=== PATIENT | female | born 1995 | race Native Hawaiian/Other Pacific Islander ===

== ENCOUNTER 2021-12-25 00:18 | Emergency (ER) | payer OTHER, SELFPAY ==
[2021-12-25 01:18] VITALS: BP 143/96; PULSE 94; RESP 20; TEMP 36.9; O2SAT 95; BMI 43.4
[2021-12-25 02:00] LABS: Influenza A PCR NEGATIVE (Negative); Influenza B PCR NEGATIVE (Negative); Resp Syncy Virus RNA Qual PCR NEGATIVE (Negative); SARS COV2 PCR INHOUSE NEGATIVE (Negative)
--- NOTE | 2021-12-25 04:46 | ED.URI ---
HPI - URI/Sore Throat General Chief Complaint: Upper Respiratory Symptoms Stated Complaint: Congested/Cough/Vomiting Time Seen by Provider: 12/25/21 04:46 Source: patient Mode of arrival: ambulatory Limitations: no limitations History of Present Illness HPI Narrative: Patient with no known lung condition been coughing for last 3 weeks her son was also sick with same low-grade fever clear rhinorrhea wheezing and cough COVID RSV and flu done in the triage was negative Related Data Previous Rx's Medication Instructions Recorded albuterol sulfate 90 mcg/actuation 2 puff inhalation Q4-6H PRN 12/25/21 aerosol inhaler (ProAir HFA) shortness of breath or wheezing #8.5 grams amoxicillin 875 mg-potassium 1 tab PO BID #20 tabs 12/25/21 clavulanate 125 mg tablet benzonatate 200 mg capsule 200 mg PO TID PRN cough #30 caps 12/25/21 prednisone 20 mg tablet 40 mg PO DAILY #10 tabs 12/25/21 Allergies Allergy/AdvReac Type Severity Reaction Status Date / Time No Known Allergies Allergy Unverified 11/01/19 19:29 [No Known Allergies*] Review of Systems Review of Systems: Yes all other systems are reviewed and are negative PMFSH Social History Social History Advance Directives: No Advance Directives Information Provided: Yes Physical Exam Vital Signs: Vital Signs: Last Vital Signs Temp 98.5 F 12/25/21 01:18 Pulse 94 12/25/21 01:18 Resp 20 12/25/21 01:18 BP 143/96 H 12/25/21 01:18 Pulse Ox 95 12/25/21 01:18 O2 Del Method 12/25/21 01:18 BMI result Body Mass Index 43.4 Appearance: Alert. Oriented X3. No acute distress. ENT: Pharynx normal. Oral Mucosa moist Neck: Normal inspection. Neck supple. CVS: Normal heart rate and rhythm. Pulses normal. Respiratory: No respiratory distress. Equal air entry bilateral, no wheezing/rales/rhonchi prolonged expiration with frequent cough Abdomen: Soft and nontender. Bowel sounds are present, no mass palpable, no CVA tenderness Skin: Skin warm and dry. Normal skin color. Normal skin turgor. Extremities: No lower extremity edema. No calf tenderness Neuro: Oriented X 3. Medications Administered Discontinued Medications Generic Name Dose Route Start Last Admin Trade Name Freq PRN Reason Stop Dose Admin Albuterol Sulfate 4 puff 12/25/21 05:00 12/25/21 05:11 Albuterol Sulfate 90 Mcg 8 Gm Inhaler INHALE 12/25/21 05:01 4 puff ONCE ONE Administration Amoxicillin/Clavulanate Potassium 875 mg 12/25/21 05:00 12/25/21 05:12 Amoxicillin/Potassium Clav 875 Mg Tablet PO 12/25/21 05:01 875 mg ONCE ONE Administration Benzonatate 200 mg 12/25/21 05:00 12/25/21 05:12 Benzonatate 100 Mg Capsule PO 12/25/21 05:01 200 mg ONCE ONE Administration Dexamethasone 10 mg 12/25/21 05:00 12/25/21 05:12 Dexamethasone 2 Mg Tablet PO 12/25/21 05:01 10 mg ONCE ONE Administration MDM - URI/Sore Throat MDM Narrative Medical decision making narrative: Patient feeling much better after albuterol inhaler and start home on prednisone inhaler antibiotics Lab Data Labs: Lab Results 12/25/21 Range/Units 01:17 Influenza Type A (PCR) NEGATIVE (Negative) Influenza Type B (PCR) NEGATIVE (Negative) RSV RNA Qual (PCR) NEGATIVE (Negative) SARS-CoV-2 RNA (RT-PCR) NEGATIVE (Negative) Discharge Plan Discharge Clinical Impression: Bronchitis Patient Disposition: Home, Self-Care Instructions: Acute Bronchitis (ED) Additional Instructions: Take medication as prescribed Follow with PCP if not better Prescriptions: New benzonatate 200 mg capsule 200 mg PO TID PRN (Reason: cough) Qty: 30 0RF prednisone 20 mg tablet 40 mg PO DAILY Qty: 10 0RF albuterol sulfate [ProAir HFA] 90 mcg/actuation HFA aerosol inhaler 2 puff inhalation Q4-6H PRN (Reason: shortness of breath or wheezing) Qty: 8.5 0RF amoxicillin-pot clavulanate 875-125 mg tablet 1 tab PO BID Qty: 20 0RF
[2021-12-25] MEDS: Albuterol Sulfate 90 MCG 8 GM INHALER 4 PUFF INHALE (05:11)
[2021-12-25] MEDS: Amoxicillin/Potassium Clav 875 MG TABLET PO (05:12)
[2021-12-25] MEDS: Benzonatate 100 MG CAPSULE 200 MG PO (05:12)
[2021-12-25] MEDS: dexAMETHasone 2 MG TABLET 10 MG PO (05:12)
--- OUTSIDE RECORDS SUMMARY | 2021-12-25 05:30 | XMS_ITS | Continuity of Care Document ---
:1995 Author Organization [facility] Address [address] [place] [address]- Care Team Providers Name Role Phone Malorie Voss MD Primary Care Physician [facility]counter [facility] Date(s): 01/07/20 - 02/06/[address] [address] Allergies, Adverse Reactions, Alerts Substance Reaction Severity Status NKA Active Immunizations Given and Recorded Vaccine Date Status Refusal Reason Human Papillomavirus Vaccine 02/02/11 Given Human Papillomavirus Vaccine 09/17/09 Given Human Papillomavirus Vaccine 09/02/08 Given influenza virus vaccine, inactivated 10/21/10 Given Tet/Diphth/Acel, Pertussis (oldterm) 09/02/08 Given Meningococcal Polysaccharide Vaccine 09/02/08 Given Varicella Virus Vaccine 09/02/08 Given Varicella Virus Vaccine 08/11/99 Given Measles/Mumps/Rubella Virus Vaccine 11/03/01 Given Measles/Mumps/Rubella Virus Vaccine 05/02/98 Given Poliovirus Vaccine, Inactivated 11/03/01 Given Poliovirus Vaccine, Inactivated 01/29/99 Given Poliovirus Vaccine, Inactivated 97 Given Poliovirus Vaccine, Inactivated 97 Given Diphth/Pertussis,Acel/Tetanus (oldterm) 11/03/01 Given Diphth/Pertussis,Acel/Tetanus (oldterm) 01/29/99 Given Diphth/Pertussis,Acel/Tetanus (oldterm) 97 Given Diphth/Pertussis,Acel/Tetanus (oldterm) 97 Given Diphth/Pertussis,Acel/Tetanus (oldterm) 97 Given Haemophilus B Conj Vaccine (oldterm) 05/02/98 Given Haemophilus B Conj Vaccine (oldterm) 97 Given Haemophilus B Conj Vaccine (oldterm) 97 Given Haemophilus B Conj Vaccine (oldterm) 97 Given Hepatitis B Vaccine (old term) 97 Given Hepatitis B Vaccine (old term) 97 Given Hepatitis B Vaccine (old term) 97 Given Medications MetroGel-Vaginal 0.75% vaginal gel with applicator 1 application, Vaginally, Daily at bedtime, # 70 Gm, 0 Refills, Soft Stop, 11/29/14 10:32:21, Gel, 1application Vaginally Daily at bedtime,x5 days Start Date: 11/29/14 Stop Date: 12/04/14 Status: OrderedNuvaRing 0.015 mg-0.120 mg vaginal ring See Instructions, 1 each Vaginally, # 3 each, 4 Refills, Maintenance, 07/02/16 15:00:39, 1 each Vaginally Start Date: 07/02/16 Status: Ordered Problem List Condition Effective Dates Status Health Status Informant Chlamydia infection(Confirmed) Active Postoperative wound Active breakdown(Confirmed) Social History Social History Type Response Smoking Status Never smoker entered on: 11/29/14 Sex
--- OUTSIDE RECORDS SUMMARY | 2021-12-25 05:30 | XMS_ITS | Continuity of Care Document ---
:1995 Author Organization [facility] ic Address [address] [place] [id number]- Care Team Providers Name Role Phone Malorie Voss MD Primary Care Physician [facility]counter [facility] Date(s): 09/19/20 - 10/24/[address] [id number] Attending Physician: Not on Staff, Attending MD Allergies, Adverse Reactions, Alerts Substance Reaction Severity [...] Condition Effective Dates Status Health Status Informant Postoperative wound Active breakdown(Confirmed) Social History Social History Type Response Smoking Status Never smoker entered on: 11/29/14 Sex
--- OUTSIDE RECORDS SUMMARY | 2021-12-25 05:30 | XMS_ITS | Continuity of Care Document ---
:1995 Author Organization [facility] ic Address [address] [place] [address]- Care Team Providers Name Role Phone Malorie Voss MD Primary Care Physician Encounter [facility] Date(s): 01/25/20 - 02/24/[address] [address] Attending Physician: Milana Posey Admitting Physician: Milana Posey Referring Physician: Milana Posey Allergies, Adverse Reactions, Alerts Substance Reaction Severity [...]
--- OUTSIDE RECORDS SUMMARY | 2021-12-25 05:30 | XMS_ITS | Continuity of Care Document ---
:1995 Author Organization [facility] [employer] [facility] p Address [address] [place] [address], [address] [place] [address]- Care Team Providers Name Role Phone Malorie Voss MD Primary Care Physician [facility]counter [facility] Date(s): 09/23/20 - 10/23/20 [facility] [employer] [address], [address] [place] [address] Allergies, Adverse Reactions, Alerts Substance Reaction Severity [...]
--- OUTSIDE RECORDS SUMMARY | 2021-12-25 05:30 | XMS_ITS | Continuity of Care Document ---
:1995 Author Organization [facility] ic Address [address] [place] [id number]- Care Team Providers Name Role Phone Malorie Voss MD Primary Care Physician [place] [facility] Date(s): 09/24/20 - 10/24/[address] [address] Attending Physician: Milana Posey Admitting Physician: Milana Posey Referring Physician: AdmtrMilana Allergies, Adverse Reactions, Alerts Substance Reaction Severity [...]
--- OUTSIDE RECORDS SUMMARY | 2021-12-25 05:30 | XMS_ITS | Continuity of Care Document ---
:1995 Author Organization [facility] [employer] [facility] p Address [address] [place] [address], [address] [place] [address]- Care Team Providers Name Role Phone Malorie Voss MD Primary Care Physician Encounter [facility] Date(s): 10/05/21 - 11/04/21 [facility] [employer] [address], [address] [place] [address] Allergies, Adverse Reactions, Alerts No Known Allergies Immunizations Given and Recorded Vaccine Date Status [...] Status Never smoker entered on: 11/29/14 Sex Care Team PersonnelName: Malorie Voss MD Address: [address] [place] [address] General Pediatrics [address]
--- OUTSIDE RECORDS SUMMARY | 2021-12-25 05:30 | XMS_ITS | Continuity of Care Document ---
:1995 Author Organization [facility] ic Address [address] [place] [address]- Care Team Providers Name Role Phone Malorie Voss MD Primary Care Physician [facility] Date(s): 09/05/20 - 10/05/[address] [address] Allergies, Adverse Reactions, Alerts Substance Reaction [...] 97 Given Haemophilus B Conj Vaccine (oldterm) 3/19/99 Given Haemophilus B Conj Vaccine (oldterm) 97 [...]
--- OUTSIDE RECORDS SUMMARY | 2021-12-25 05:30 | XMS_ITS | Continuity of Care Document ---
:1995 Author Organization [facility] ic Address [address] [place] [id number]- Care Team Providers Name Role Phone Malorie Voss MD Primary Care Physician Encounter [facility] Date(s): 11/28/19 - 02/24/[address] [address] Attending Physician: Sana Sheets CNM Admitting Physician: Sana Sheets CNM Allergies, Adverse Reactions, Alerts Substance Reaction Severity [...]
== END 2021-12-25 05:35 | disposition home or self-care (01) ==
PROVIDERS: Emergency Provider Internal Medicine
DX: J40 Bronchitis, not specified as acute or chronic (principal); R05.9 Cough, unspecified; Z20.822 Contact with and (suspected) exposure to COVID-19; Z79.899 Other long term (current) drug therapy
CPT/HCPCS: 0241U; 99282; 99284; J8540

== ENCOUNTER 2022-02-05 02:43 | Emergency (ER) | payer OTHER, SELFPAY ==
[2022-02-05 03:21] VITALS: BP 107/66; PULSE 99; RESP 16; TEMP 36.9; O2SAT 98; BMI 43.0
[2022-02-05 03:58] VITALS: BP 126/70; PULSE 97; RESP 20; TEMP 37; O2SAT 98
[2022-02-05 04:01] VITALS: BP 126/70; PULSE 97; RESP 20; TEMP 37; O2SAT 98
--- NOTE | 2022-02-05 04:02 | PC.NURSE ---
Pt's V/S are stable, pt is /o x5, pt came presenting abd pain. Pt refused to sit on the stretcher and for the nurse to assess her abd. Provider has been notified.
--- NOTE | 2022-02-05 04:13 | PC.NURSE ---
Pt is combative and swearing to the provider and the nurse. charge nurse Bandar made aware and currently w/ pt. Pt refused to be assess by the provider. Security has been called.
--- NOTE | 2022-02-05 04:15 | ED.ABDPAIN ---
HPI - Abdominal Pain General Chief Complaint: Abdominal Pain Stated Complaint: abd pain Time Seen by Provider: 02/05/22 04:09 Source: patient Mode of arrival: ambulatory Limitations: no limitations History of Present Illness HPI narrative: Patient came diffuse abdominal pain for last few months after nexplanon was changed in November having irregular menstrual periods complaining of dysuria and discomfort in lower abdomen for last 3 days radiating the right side and right flank patient does complain of frequency and dysuria no hematuria no history of kidney stone nauseated vomited 2-3 times in last 24 hours also having chills no fever no significant vaginal discharge Related Data Previous Rx's Medication Instructions Recorded albuterol sulfate 90 mcg/actuation 2 puff inhalation Q4-6H PRN 12/25/21 aerosol inhaler (ProAir HFA) shortness of breath or wheezing #8.5 grams amoxicillin 875 mg-potassium 1 tab PO BID #20 tabs 12/25/21 clavulanate 125 mg tablet benzonatate 200 mg capsule 200 mg PO TID PRN cough #30 caps 12/25/21 prednisone 20 mg tablet 40 mg PO DAILY #10 tabs 12/25/21 ciprofloxacin HCl 500 mg tablet 500 mg PO BID #20 tabs 02/05/22 (Cipro) ibuprofen 600 mg tablet 600 mg PO Q6H PRN fever or pain 02/05/22 #30 tabs phenazopyridine 200 mg tablet 200 mg PO TID 2 days #6 tabs 02/05/22 (Pyridium) Allergies Allergy/AdvReac Type Severity Reaction Status Date / Time No Known Allergies Allergy Unverified 11/01/19 19:29 [No Known Allergies*] Review of Systems Review of Systems Yes all other systems are reviewed and are negative PMFSH Social History Social History Smoked in Last 30 Days: No Use of substances other than those prescribed or required for medical reasons: No Advance Directives: No Advance Directives Information Provided: Yes Patient : No Physical Exam ED Vital Signs: Vital Signs - 24 hr 02/05/22 03:21 02/05/22 03:58 02/05/22 04:01 Temperature 98.4 F 98.6 F 98.6 F Pulse Rate 99 97 97 Respiratory Rate 16 20 20 Blood Pressure 107/66 126/70 126/70 Pulse Oximetry 98 98 98 Oxygen Delivery Method Room Air Room Air Room Air 02/05/22 06:40 Temperature Pulse Rate Respiratory Rate 16 Blood Pressure Pulse Oximetry Oxygen Delivery Method BMI result Body Mass Index 43.0 Appearance: Alert. Oriented X3. No acute distress. Anxious Eyes: PERRLA, No Nystagmus ENT: Pharynx normal. Oral Mucosa moist Neck: Normal inspection. Neck supple. CVS: Normal heart rate and rhythm. Pulses normal. Respiratory: No respiratory distress. Equal air entry bilateral, no wheezing/rales/rhonchi Abdomen: Soft and nontender. Bowel sounds are present, no mass palpable, mild right CVA tenderness Skin: Skin warm and dry. Normal skin color. Normal skin turgor. Extremities: No lower extremity edema. No calf tenderness Neuro: Oriented X 3. No motor deficit. Medical Decision Making Medical Decision Making [facility] Narrative: 4;10 am Patient very rude after arrival in the ER sitting on the chair refused to lay on the bed refused to be examined refused to give the urine sample will wait for the urine sample check for and further evaluation 6 am patient very rude still difficult to make her understand course of UTI and lactic acid of 1.6 patient received IV fluids and Rocephin will discharge patient home on Cipro for uncomplicated pyelonephritis Lab Data [facility] Lab Attestation statement: I reviewed the patient's lab results. Result Diagrams: 02/05/22 04:50 02/05/22 04:50 Labs: Lab Results 02/05/22 02/05/22 02/05/22 Range/Units 04:50 04:50 04:53 WBC 22.3 H (4.8-10.8) X10*3/uL RBC 4.81 (4.20-5.50) X10*6/uL Hgb 13.2 (12.0-16.0) g/dl Hct 39.8 (37.0-47.0) % MCV 82.7 (80.0-98.0) fL MCH 27.4 (27.0-33.0) pg MCHC 33.2 (31.0-35.0) g/dl RDW 12.6 (11.0-16.0) % Plt Count 238 (160-400) X10*3/uL MPV 10.2 (9.4-12.3) fL Immature Gran % (Auto) 0.7 H (0.0-0.4) % Neut % (Auto) 86.3 H (45-73) % Lymph % (Auto) 10.3 L (20-40) % Maverick % (Auto) 2.2 (2-11) % Eos % (Auto) 0.2 (0-4) % Baso % (Auto) 0.3 (0-2) % Lymph # (Auto) 2.3 (1.2-4.9) X10*3/uL Maverick # (Auto) 0.5 (0.1-1.2) X10*3/uL Eos # (Auto) 0.0 (0.0-0.4) X10*3/uL Baso # (Auto) 0.1 (0.0-0.2) X10*3/uL Abs Immat Gran (auto) 0.15 H (0.00-0.03) X10*3/uL Absolute Neuts (auto) 19.2 H (2.0-8.3) x10*3/uL Absolute Nucleated RBC 0.000 (0.0-0.012) X10*3/uL Nucleated RBC % (auto) 0.0 (0.0-0.2) /100WBC Sodium 139 (135-145) mmol/L Potassium 3.7 (3.3-5.1) mmol/L Chloride 105 (96-108) mmol/L Carbon Dioxide 21 L (22-29) mmol/L Anion Gap 17 (12-20) BUN 8 L (9-16) mg/dL Creatinine 0.77 (0.5-1.4) mg/dL Estim Creat Clear Calc 154.4 Estimated GFR > 60 Random Glucose 137 H (60-115) mg/dL Lactic Acid (0.5-2.0) mmol/L Calcium 9.5 (8.4-10.2) mg/dL Total Bilirubin 0.7 (0.0-1.0) mg/dL AST 13 (5-31) U/L ALT 14 (0-31) U/L Alkaline Phosphatase 82 (39-117) U/L Total Protein 7.1 (6.5-8.0) g/dL Albumin 4.3 (3.5-5.0) g/dL Urine Color Yellow Urine Appearance Cloudy Urine pH 6.5 (5.0-9.0) Ur Specific Fountain 1.020 (1.005-1.025) Urine Protein 300 (3+) H (Neg-Trace) mg/dL Urine Glucose (UA) Negative (Negative) mg/dL Urine Ketones Negative (Negative) mg/dL Urine Blood Moderate (2+) H (Negative) Urine Nitrite Negative (Negative) Ur Leukocyte Esterase Large (3+) H (Negative) Urine RBC >20 H (0-2) /HPF Urine WBC >50 H (0-5) /HPF Ur Squamous Epith Cells 3-5 (0-2) /HPF Urine Bacteria 1+ (None Seen) Hyaline Casts 0-2 (0-2) /LPF Urine Test (NEGATIVE) 02/05/22 02/05/22 Range/Units 04:53 05:38 WBC (4.8-10.8) X10*3/uL RBC (4.20-5.50) X10*6/uL Hgb (12.0-16.0) g/dl Hct (37.0-47.0) % MCV (80.0-98.0) fL MCH (27.0-33.0) pg MCHC (31.0-35.0) g/dl RDW (11.0-16.0) % Plt Count (160-400) X10*3/uL MPV (9.4-12.3) fL Immature Gran % (Auto) (0.0-0.4) % Neut % (Auto) (45-73) % Lymph % (Auto) (20-40) % Maverick % (Auto) (2-11) % Eos % (Auto) (0-4) % Baso % (Auto) (0-2) % Lymph # (Auto) (1.2-4.9) X10*3/uL Maverick # (Auto) (0.1-1.2) X10*3/uL Eos # (Auto) (0.0-0.4) X10*3/uL Baso # (Auto) (0.0-0.2) X10*3/uL Abs Immat Gran (auto) (0.00-0.03) X10*3/uL Absolute Neuts (auto) (2.0-8.3) x10*3/uL Absolute Nucleated RBC (0.0-0.012) X10*3/uL Nucleated RBC % (auto) (0.0-0.2) /100WBC Sodium (135-145) mmol/L Potassium (3.3-5.1) mmol/L Chloride (96-108) mmol/L Carbon Dioxide (22-29) mmol/L Anion Gap (12-20) BUN (9-16) mg/dL Creatinine (0.5-1.4) mg/dL Estim Creat Clear Calc Estimated GFR Random Glucose (60-115) mg/dL Lactic Acid 1.6 (0.5-2.0) mmol/L Calcium (8.4-10.2) mg/dL Total Bilirubin (0.0-1.0) mg/dL AST (5-31) U/L ALT (0-31) U/L Alkaline Phosphatase (39-117) U/L Total Protein (6.5-8.0) g/dL Albumin (3.5-5.0) g/dL Urine Color Urine Appearance Urine pH (5.0-9.0) Ur Specific Fountain (1.005-1.025) Urine Protein (Neg-Trace) mg/dL Urine Glucose (UA) (Negative) mg/dL Urine Ketones (Negative) mg/dL Urine Blood (Negative) Urine Nitrite (Negative) Ur Leukocyte Esterase (Negative) Urine RBC (0-2) /HPF Urine WBC (0-5) /HPF Ur Squamous Epith Cells (0-2) /HPF Urine Bacteria (None Seen) Hyaline Casts (0-2) /LPF Urine Test NEGATIVE (NEGATIVE) Medications Administered Discontinued Medications Generic Name Dose Route Start Last Admin Trade Name Freq PRN Reason Stop Dose Admin Ceftriaxone Sodium 1 gm/ 50 mls @ 100 mls/hr 02/05/22 05:09 02/05/22 05:40 Sodium Chloride IV 02/05/22 05:38 100 mls/hr ONCE ONE Administration Sodium Chloride 1,000 mls @ 999 mls/hr 02/05/22 05:10 02/05/22 05:40 Ns IV 02/05/22 06:10 999 mls/hr .Q1H1M ONE Administration Ketorolac Tromethamine 30 mg 02/05/22 05:10 02/05/22 05:40 Ketorolac Tromethamine 30 Mg/Ml Vial IVPUSH 02/05/22 05:11 30 mg ONCE ONE Administration Discharge Plan Discharge Clinical Impression: Acute pyelonephritis Patient Disposition: Home, Self-Care Instructions: Kidney Infection (ED) Additional Instructions: Drink plenty of fluids Take antibiotic as prescribed Follow-up with your PCP if not better Prescriptions: New ciprofloxacin HCl [Cipro] 500 mg tablet 500 mg PO BID Qty: 20 0RF phenazopyridine [Pyridium] 200 mg tablet 200 mg PO TID 2 Days Qty: 6 0RF ibuprofen 600 mg tablet 600 mg PO Q6H PRN (Reason: fever or pain) Qty: 30 0RF No Action benzonatate 200 mg capsule 200 mg PO TID PRN (Reason: cough) Qty: 30 0RF prednisone 20 mg tablet 40 mg PO DAILY Qty: 10 0RF albuterol sulfate [ProAir HFA] 90 mcg/actuation HFA aerosol inhaler 2 puff inhalation Q4-6H PRN (Reason: shortness of breath or wheezing) Qty: 8.5 0RF amoxicillin-pot clavulanate 875-125 mg tablet 1 tab PO BID Qty: 20 0RF
[2022-02-05 04:53] LABS: MANUAL DIFF FLAG NO
[2022-02-05 04:54] LABS: Basophils Absolute Auto 0.1 X10*3/uL (0.0-0.2); Basophils Percent Auto 0.3 % (0-2); Eosinophils Percent Auto 0.2 % (0-4); Hematocrit 39.8 % (37.0-47.0); Hemoglobin 13.2 g/dl (12.0-16.0); Imm Gran Abs Auto 0.15 X10*3/uL (0.00-0.03); Imm Gran Pct Auto 0.7 % (0.0-0.4); Lymphocytes Absolute Auto 2.3 X10*3/uL (1.2-4.9); Lymphocytes Percent Auto 10.3 % (20-40); Mean Corpuscular HGB Conc 33.2 g/dl (31.0-35.0); Mean Corpuscular Hemoglobin 27.4 pg (27.0-33.0); Mean Corpuscular Volume 82.7 fL (80.0-98.0); Mean Platelet Volume 10.2 fL (9.4-12.3); Monocytes Absolute Auto 0.5 X10*3/uL (0.1-1.2); Monocytes Percent Auto 2.2 % (2-11); Neutrophils Absolute Auto 19.2 x10*3/uL (2.0-8.3); Neutrophils Percent Auto 86.3 % (45-73); Platelet Count 238 X10*3/uL (160-400); Red Blood Count 4.81 X10*6/uL (4.20-5.50); Red Cell Distribution Width 12.6 % (11.0-16.0); White Blood Count 22.3 X10*3/uL (4.8-10.8)
[2022-02-05 05:00] LABS: Appearance Urine Cloudy; Color Urine Yellow; Glucose Urine UA Negative (Negative); Leukocyte Esterase Urine Large (3+) (Negative); Nitrite Urine Negative (Negative); PH 6.5 (5.0-9.0); UMIC TRIGGER UACC YES; Urine Blood Moderate (2+) (Negative); Urine Ketones Negative (Negative); Urine Protein 300 (3+) mg/dL (Neg-Trace)
[2022-02-05 05:03] LABS: UPreg QC Valid YES; Urine Pregnancy NEGATIVE (NEGATIVE)
[2022-02-05 05:06] LABS: Bacteria Urine 1+ (None Seen); Hyaline Casts Urine 0-2 /LPF (0-2); RBC Urine >20 /HPF (0-2); UACC Culture Trigger YES; WBC Urine >50 /HPF (0-5)
[2022-02-05 05:14] LABS: Alanine Aminotransferase 14 U/L (0-31); Albumin Level 4.3 g/dL (3.5-5.0); Alkaline Phosphatase 82 U/L (39-117); Anion Gap 17 (12-20); Aspartate Amino Transferase 13 U/L (5-31); Bilirubin Total 0.7 mg/dL (0.0-1.0); Blood Urea Nitrogen 8 mg/dL (9-16); Calcium 9.5 mg/dL (8.4-10.2); Carbon Dioxide 21 mmol/L (22-29); Chloride 105 mmol/L (96-108); Creatinine Clr Calc Pharmacy 154.4; Estimated Glomerular Filt Rate > 60; Glucose Random 137 mg/dL (60-115); Potassium 3.7 mmol/L (3.3-5.1); Sodium 139 mmol/L (135-145); Total Protein 7.1 g/dL (6.5-8.0)
[2022-02-05] MEDS: Ketorolac Tromethamine 30 MG/ML VIAL IVPUSH (05:40)
[2022-02-05] MEDS: cefTRIAXone sodium 1 GM in 0.9 % Sodium Chloride 50 ML IV (05:40)
[2022-02-05] MEDS: 0.9 % Sodium Chloride 1,000 ML 999 ML IV (05:40)
[2022-02-05 05:52] LABS: Lactic Acid 1.6 mmol/L (0.5-2.0)
[2022-02-05 06:40] VITALS: RESP 16
== END 2022-02-05 07:26 | disposition home or self-care (01) ==
PROVIDERS: Emergency Provider Internal Medicine
DX: N10 Acute pyelonephritis (principal); R30.0 Dysuria; Z79.899 Other long term (current) drug therapy
CPT/HCPCS: 36415; 74176; 80053; 81001; 81003; 81025; 83605; 85025; 87040; 87077; 87086; 87205; 96374; 96375; 99284; 99285; J0696; J1885

== ENCOUNTER 2022-02-06 13:55 | Inpatient (IN) | payer OTHER, SELFPAY ==
[2022-02-06 13:59] VITALS: BP 116/67; PULSE 126; RESP 18; TEMP 37.4; O2SAT 95; BMI 42.3
[2022-02-06 14:00] VITALS: BP 126/81; PULSE 113; RESP 15; TEMP 37.1; O2SAT 100
--- NOTE | 2022-02-06 14:05 | ED.GENADULT ---
HPI - General Adult General Chief complaint: Recheck/Abnormal Lab/Rx Stated complaint: abnormal labs Time Seen by Provider: 02/06/22 14:04 Source: patient Mode of arrival: ambulatory Limitations: no limitations History of Present Illness HPI narrative: Patient is a 26 year old assigned female at with a history of sepsis presenting to the emergency department today with flank pain. Patient states that she was seen yesterday and diagnosed with a kidney infection. Patient states that she was called today and told that her blood cultures came back positive and she should return to the emergency department. Patient states she is still having flank pain. Patient denies any dizziness, lightheadedness, abdominal pain, nausea, vomiting, fever, chills, blurry vision, double vision, loss of vision, chest pain, difficulty breathing, shortness of breath, back pain, night sweats, pain with urination, increased urinary frequency, increased urinary urgency, blood in her urine or stool, syncope or a near syncopal episode, recent trauma or falls, bowel incontinence, bladder incontinence, bowel retention, bladder retention, or any other complaints at this time. Onset (ago): day(s) Severity: moderate Severity scale (1-10): 4 Relieving factors: none Exacerbating factors: none Associated symptoms: denies other symptoms Treatments prior to arrival: none Related Data Home Medications Medication Instructions Recorded Confirmed acetaminophen 325 mg tablet 650 mg PO QID PRN Pain 02/06/22 02/06/22 Previous Rx's Medication Instructions Recorded albuterol sulfate 90 mcg/actuation 2 puff inhalation Q4-6H PRN 12/25/21 aerosol inhaler (ProAir HFA) shortness of breath or wheezing #8.5 grams ciprofloxacin HCl 500 mg tablet 500 mg PO BID #20 tabs 02/05/22 (Cipro) phenazopyridine 200 mg tablet 200 mg PO TID 2 days #6 tabs 02/05/22 (Pyridium) Allergies Allergy/AdvReac Type Severity Reaction Status Date / Time No Known Allergies Allergy Unverified 11/01/19 19:29 [No Known Allergies*] Review of Systems Constitutional: Constitutional: Reports no additional constitutional complaints, Denies chills, Denies fever(s) and Denies night sweats Eyes: Eyes: Reports no additional eye complaints, Denies blurry vision, Denies change in vision, Denies diplopia, Denies eye discharge, Denies loss of vision and Denies eye pain ENT: Denies dizziness Cardiovascular: Cardiovascular: Reports no additional cardiovascular complaints, Denies chest pain, Denies lightheadedness, Denies Loss of Consciousness and Denies dyspnea Respiratory: Respiratory: Reports no additional respiratory complaints and Denies dyspnea Gastrointestinal: Gastrointestinal: Reports no additional gastrointestinal complaints, Denies abdominal pain, Denies melena, Denies hematochezia, Denies change in bowel habits and Denies change in stool character Genitourinary: Genitourinary: Denies hematuria, Denies urinary frequency, Denies dysuria, Reports flank pain, Denies urinary incontinence, Denies urinary hesitancy and Denies urinary urgency Musculoskeletal: Musculoskeletal: Reports no additional musculoskeletal complaints, Denies numbness and Denies tingling Neurologic: Denies dizziness, Denies loss of vision, Denies numbness and Denies tingling Psychiatric: Psychiatric: Reports no additional psychiatric complaints Endocrine: Endocrine: Reports no additional endocrine complaints Hematologic/Lymphatic: Hematologic/Lymphatic: Reports no additional hematologic/lymphatic complaints Allergic/Immunologic: Allergic/Immunologic: Reports no additional allergic/immunologic complaints PMFSH Past Medical History Attestation statement: The following information was validated with the patient. Source: old records reviewed and nursing notes reviewed Medical History No pertinent past medical history Family History Family History Mother Diabetes Hypertension Maternal Grandfather Diabetes Hypertension Maternal Grandmother Diabetes Hypertension Colon cancer Social History Social History Alcohol intake: current Alcohol intake frequency: holidays/special occasions only Patient Tobacco Use Status: Never used Tobacco Use of substances other than those prescribed or required for medical reasons: Yes Substance Use Type: Marijuana Advance Directives: No Advance Directives Information Provided: Yes Physical Exam ED Vital Signs: Vital Signs - 24 hr 02/06/22 13:59 02/06/22 14:00 Temperature 99.3 F 98.8 F Pulse Rate 126 H 113 H Respiratory Rate 18 15 Blood Pressure 116/67 126/81 Pulse Oximetry 95 100 Oxygen Delivery Method Room Air Room Air BMI result Body Mass Index 42.3 Const General: cooperative, no acute distress, alert and awake Nutritional Appearance: well nourished Orientation/consciousness: patient oriented x3 Limitations: no limitations HENMT Head: Yes normal to inspection and Yes atraumatic Ears: hearing grossly normal bilaterally and external ears normal General nose exam: Normal external nose present, no nasal discharge noted and no epistaxis Face and sinus: Yes normal facial exam, No abrasion and No laceration Mouth: Normal oral and palatal mucosa present, no drooling and no muffled voice Eyes General: appearance normal, both eyes and all related structures Periorbital: periorbital findings normal Eyelids: Yes eyelids normal Conjunctivae: conjunctivae normal Pupils: Equal, round and reactive pupils present EOM: EOMs intact bilaterally Neck Neck: Yes normal visual inspection, Yes full ROM and Yes no lymphadenopathy Chest Chest palpation & inspection: normal inspection of the chest Resp Effort & Inspection: normal respiratory effort and able to speak in complete sentences Auscultation: clear to auscultation bilaterally Cardio Rate: regular rate Rhythm: regular rhythm GI Inspection: Yes normal to inspection Palpation (GI): Soft to palpation, not firm, nontender, no guarding and not rigid Neuro General: patient oriented x3 and moves all extremities Cranial nerves: Yes Equal, round and reactive pupils present Cognition (Neuro): normal cognition Motor exam (neuro): 5/5 motor strength present throughout Sensory Exam: Normal double simultaneous stimulation for sensation Coordination: [id number] test normal Extrem General: Yes normal to inspection, Yes full ROM and Yes capillary refill normal Psych Appearance: grossly normal Mental Status: mental status grossly normal Affect: normal affect Attitude: cooperative Thought process: Normal thought process present Thought content: Normal thought content present Insight: Good insight present (Psych) Medications Administered Discontinued Medications Generic Name Dose Route Start Last Admin Trade Name Abhishekq PRN Reason Stop Dose Admin Sodium Chloride 1,848 mls @ 1,848 mls/hr 02/06/22 14:05 02/06/22 15:09 Ns IV 02/06/22 15:04 1,848 mls/hr .Q1H STA Administration Ceftriaxone Sodium 2 gm/ 50 mls @ 100 mls/hr 02/06/22 14:06 02/06/22 15:10 Sodium Chloride IV 02/06/22 14:35 100 mls/hr ONCE ONE Administration Ketorolac Tromethamine 15 mg 02/06/22 14:19 02/06/22 15:18 Ketorolac Tromethamine 15 Mg/Ml Vial IVPUSH 02/06/22 14:20 15 mg ONCE ONE Administration Ondansetron HCl 4 mg 02/06/22 14:19 02/06/22 15:17 Ondansetron Hcl 4 Mg/2 Ml Vial IVPUSH 02/06/22 14:20 4 mg ONCE ONE Administration Medical Decision Making Medical Decision Making [facility] Narrative: Patient is a 26 year old assigned female at with a history of previous sepsis presenting to the emergency department today with continued flank pain and positive blood cultures. Patient's physical exam showed tachycardia. Patient's blood work showed 2 sets of blood cultures positive for gram negative rods from yesterday as well as a continued elevated WBC count today of 13.4. Patient's urine is pending but the urine yesterday was significant for infection. Patient's abdominal CT from 02/05/2022 showed subtle right periureteral stranding without significant hydronephropsis. Patient was immediately given 30mg / kg of IV fluids based on ideal body weight and 2 grams of Rocephin. I spoke to the hospitalist who agreed to admission. I explained my physical exam findings as well as all test results to the patient. I answered all questions asked by the patient. Patient verbalized agreement and understanding with this treatment plan and admission. Differential Diagnosis Differential Diagnoses: The differential diagnosis associated with the presentation includes sepsis, pyelonephrosis, positive blood cultures Consult Healthcare Provider Management of the patient was discussed with: Hospitalist Lab Data [facility] Lab Attestation statement: I reviewed the patient's lab results. Result Diagrams: 02/06/22 15:00 02/06/22 15:00 Labs: Lab Results 02/06/22 02/06/22 02/06/22 Range/Units 14:16 15:00 15:00 WBC 13.4 H (4.8-10.8) X10*3/uL RBC 4.46 (4.20-5.50) X10*6/uL Hgb 12.3 (12.0-16.0) g/dl Hct 37.1 (37.0-47.0) % MCV 83.2 (80.0-98.0) fL MCH 27.6 (27.0-33.0) pg MCHC 33.2 (31.0-35.0) g/dl RDW 12.7 (11.0-16.0) % Plt Count 207 (160-400) X10*3/uL MPV 10.7 (9.4-12.3) fL Immature Gran % (Auto) 0.4 (0.0-0.4) % Neut % (Auto) 83.0 H (45-73) % Lymph % (Auto) 9.7 L (20-40) % [place] % (Auto) 6.5 (2-11) % Eos % (Auto) 0.1 (0-4) % Baso % (Auto) 0.3 (0-2) % Lymph # (Auto) 1.3 (1.2-4.9) X10*3/uL [place] # (Auto) 0.9 (0.1-1.2) X10*3/uL Eos # (Auto) 0.0 (0.0-0.4) X10*3/uL Baso # (Auto) 0.0 (0.0-0.2) X10*3/uL Abs Immat Gran (auto) 0.06 H (0.00-0.03) X10*3/uL Absolute Neuts (auto) 11.1 H (2.0-8.3) x10*3/uL Absolute Nucleated RBC 0.000 (0.0-0.012) X10*3/uL Nucleated RBC % (auto) 0.0 (0.0-0.2) /100WBC Sodium 138 (135-145) mmol/L Potassium 4.2 (3.3-5.1) mmol/L Chloride 105 (96-108) mmol/L Carbon Dioxide 24 (22-29) mmol/L Anion Gap 13 (12-20) BUN 8 L (9-16) mg/dL Creatinine 0.79 (0.5-1.4) mg/dL Estim Creat Clear Calc 148.9 Estimated GFR > 60 Random Glucose 87 (60-115) mg/dL Lactic Acid (0.5-2.0) mmol/L Calcium 9.1 (8.4-10.2) mg/dL Magnesium 1.9 (1.6-2.6) mg/dL Total Bilirubin 0.3 (0.0-1.0) mg/dL AST 24 (5-31) U/L ALT 16 (0-31) U/L Alkaline Phosphatase 71 (39-117) U/L Total Protein 7.3 (6.5-8.0) g/dL Albumin 4.1 (3.5-5.0) g/dL COVID-19 (FERNANDO) Negative (Negative) COVID-19 Clin Com See Note 02/06/22 Range/Units 15:00 WBC (4.8-10.8) X10*3/uL RBC (4.20-5.50) X10*6/uL Hgb (12.0-16.0) g/dl Hct (37.0-47.0) % MCV (80.0-98.0) fL MCH (27.0-33.0) pg MCHC (31.0-35.0) g/dl RDW (11.0-16.0) % Plt Count (160-400) X10*3/uL MPV (9.4-12.3) fL Immature Gran % (Auto) (0.0-0.4) % Neut % (Auto) (45-73) % Lymph % (Auto) (20-40) % [place] % (Auto) (2-11) % Eos % (Auto) (0-4) % Baso % (Auto) (0-2) % Lymph # (Auto) (1.2-4.9) X10*3/uL [place] # (Auto) (0.1-1.2) X10*3/uL Eos # (Auto) (0.0-0.4) X10*3/uL Baso # (Auto) (0.0-0.2) X10*3/uL Abs Immat Gran (auto) (0.00-0.03) X10*3/uL Absolute Neuts (auto) (2.0-8.3) x10*3/uL Absolute Nucleated RBC (0.0-0.012) X10*3/uL Nucleated RBC % (auto) (0.0-0.2) /100WBC Sodium (135-145) mmol/L Potassium (3.3-5.1) mmol/L Chloride (96-108) mmol/L Carbon Dioxide (22-29) mmol/L Anion Gap (12-20) BUN (9-16) mg/dL Creatinine (0.5-1.4) mg/dL Estim Creat Clear Calc Estimated GFR Random Glucose (60-115) mg/dL Lactic Acid 1.4 (0.5-2.0) mmol/L Calcium (8.4-10.2) mg/dL Magnesium (1.6-2.6) mg/dL Total Bilirubin (0.0-1.0) mg/dL AST (5-31) U/L ALT (0-31) U/L Alkaline Phosphatase (39-117) U/L Total Protein (6.5-8.0) g/dL Albumin (3.5-5.0) g/dL COVID-19 (FERNANDO) (Negative) COVID-19 Clin Com Radiology Impression Discussion of test interpretation with radiology: I have reviewed the radiologist's reading. Radiologist Impression: EXAMINATION: CT ABDOMEN AND PELVIS WITHOUT CONTRAST? CLINICAL INFORMATION: Lower abdominal pain? COMPARISON: None? TECHNIQUE: Multidetector volumetric imaging was performed from the superior aspect of the liver through the pubic symphysis. Sagittal and coronal reformatted images were obtained on the technologist's workstation.? This CT examination was performed using dose optimization techniques as appropriate, variously including the following: *Automated exposure control *Adjustment of mA and/or kV according to patient size (this includes techniques or standardized protocols for targeted exams where dose is matched to indication/reason for exam; i.e. extremities or head) *Use of iterative reconstruction technique DLP: 996 mGy-cm FINDINGS: LUNG BASES: The visualized lung bases are unremarkable.? LIVER, GALLBLADDER, AND BILIARY TREE: The liver is normal in size, shape, and attenuation. No focal hepatic lesion or biliary ductal dilatation is identified. There is slight dependent hyperdensity in the gallbladder which could reflect gallstones or sludge. No appreciable gallbladder wall thickening or surrounding inflammation.? PANCREAS: Unremarkable.? SPLEEN: Unremarkable.? ADRENAL GLANDS: A few scattered renal calcifications are noted bilaterally, without nodularity.? KIDNEYS AND URETERS: There is no significant right-sided hydronephrosis, subtle periureteral stranding is suspected. No obstructing calculus is seen. No left-sided hydronephrosis or calculus. BLADDER: Minimally distended and suboptimally evaluated.? GASTROINTESTINAL TRACT: No evidence of bowel obstruction or significant wall thickening. The appendix is unremarkable. No free air is seen. There is trace pelvic free fluid.? ABDOMINAL WALL: No significant hernia is appreciated.? LYMPH NODES: Normal. VASCULAR: Unremarkable. PELVIC VISCERA: Unremarkable.? OSSEOUS STRUCTURES: Unremarkable.? CT/CT abdomen pelvis wo IV con IMPRESSION: 1.? Subtle right periureteral stranding without significant hydronephrosis. No obstructing calculus is seen, though this could reflect sequelae of a recently passed stone or ascending infection. Correlation with urinalysis is recommended. 2.? Trace pelvic free fluid, which may be physiologic. 3.? Slight dependent hyperdensity in the gallbladder which could reflect sludge or gallstones. This may be further assessed with ultrasound. Dictated By: Dinh Chau MD Signed By: Electronically signed by Dinh Chau MD 02/05/22 0556 Critical Care Time Critical Care Time Critical Care Time: Yes Total Critical Care Time: 30 Attestation: I spent 30 minutes of Critical Care Time with this patient. This does not include time spent on separately reported billable procedures. Discharge Plan Discharge Clinical Impression: Pyelonephritis Patient Disposition: Admitted As Inpatient
[2022-02-06 14:35] LABS: COVID-19 Test Negative (Negative)
[2022-02-06 15:16] LABS: MANUAL DIFF FLAG NO
--- NOTE | 2022-02-06 15:19 | PHA.MEDREC ---
Pharmacy Consult ? Medication Reconciliation Pharmacy has completed the medication reconciliation. Patient states she didn't slat pickler the ibuprofen at the pharmacy because she's been taking tylenol and has continued on the tylenol for pain. States she is still using albuterol inhaler prn from visit in December because she can't shake the cough.
[2022-02-06 15:24] LABS: Basophils Percent Auto 0.3 % (0-2); Eosinophils Percent Auto 0.1 % (0-4); Hematocrit 37.1 % (37.0-47.0); Hemoglobin 12.3 g/dl (12.0-16.0); Imm Gran Abs Auto 0.06 X10*3/uL (0.00-0.03); Imm Gran Pct Auto 0.4 % (0.0-0.4); Lymphocytes Absolute Auto 1.3 X10*3/uL (1.2-4.9); Lymphocytes Percent Auto 9.7 % (20-40); Mean Corpuscular HGB Conc 33.2 g/dl (31.0-35.0); Mean Corpuscular Hemoglobin 27.6 pg (27.0-33.0); Mean Corpuscular Volume 83.2 fL (80.0-98.0); Mean Platelet Volume 10.7 fL (9.4-12.3); Monocytes Absolute Auto 0.9 X10*3/uL (0.1-1.2); Monocytes Percent Auto 6.5 % (2-11); Neutrophils Absolute Auto 11.1 x10*3/uL (2.0-8.3); Platelet Count 207 X10*3/uL (160-400); Red Blood Count 4.46 X10*6/uL (4.20-5.50); Red Cell Distribution Width 12.7 % (11.0-16.0); White Blood Count 13.4 X10*3/uL (4.8-10.8)
[2022-02-06 15:43] LABS: Lactic Acid 1.4 mmol/L (0.5-2.0)
[2022-02-06 15:50] LABS: Alanine Aminotransferase 16 U/L (0-31); Albumin Level 4.1 g/dL (3.5-5.0); Alkaline Phosphatase 71 U/L (39-117); Anion Gap 13 (12-20); Aspartate Amino Transferase 24 U/L (5-31); Bilirubin Total 0.3 mg/dL (0.0-1.0); Blood Urea Nitrogen 8 mg/dL (9-16); Calcium 9.1 mg/dL (8.4-10.2); Carbon Dioxide 24 mmol/L (22-29); Chloride 105 mmol/L (96-108); Creatinine Clr Calc Pharmacy 148.9; Estimated Glomerular Filt Rate > 60; Glucose Random 87 mg/dL (60-115); Magnesium 1.9 mg/dL (1.6-2.6); Potassium 4.2 mmol/L (3.3-5.1); Sodium 138 mmol/L (135-145); Total Protein 7.3 g/dL (6.5-8.0)
--- NOTE | 2022-02-06 16:17 | PM.IMHP ---
History of Present Illness Date of Service: 02/06/22 Attending physician on admission: Daniele Kennedy Chief Complaint: gram - bacteremia, pyelonephritis 26-year-old female without significant medical history presents to the ED today for further evaluation of positive blood cultures x2 with Gram-negative rods. She was present in the ED yesterday complaining of right lower abdominal pain ongoing for 3 days radiating into the right flank with associated nausea, vomiting, decreased p.o. intake, increased frequency of urination and dysuria. She states she was discharged yesterday with ciprofloxacin but has been unable to take the medication due to vomiting. She states she has also had shaking chills but has not taken her temperature. In the ED, she is afebrile, tachycardic to 113, no hypotension. Leukocytosis 13.4. Renal function and electrolytes normal. Lactic acid 1.4. Negative for COVID-19. CT of the abdomen/pelvis yesterday showing subtle right Laquita ureteral stranding without significant hydronephrosis or obstructing calculus, those could reflect sequela of recently passed stone or ascending infection. There is also trace pelvic free fluid and slight dependent hyperdensity in the gallbladder possibly reflecting sludge or gallstones. UA in the ED yesterday showing 3+ leukocytes, 2+ blood, 3+ protein, urinary sediment, 1+ bacteria. Urine culture showing mixed bacterial pete > 100,000, characteristic of urogenital contamination. Blood culture x2 positive for Gram-negative rods. She was given dose of ceftriaxone in the ED with repeat blood cultures x2 pending. Patient to be admitted with acute pyelonephritis with sepsis and gram negative bacteremia. Review of Systems Review of Systems: General: No fevers, malaise, unintentional weight loss Cardiovascular: No chest pain, palpitations, or leg edema Respiratory: No shortness of breath, wheezing, cough GI: +abd pain, +nausea, +vomiting. No diarrhea, constipation, melena, hematochezia : +dysuria, +urinary frequency. No hematuria, decreased urinary output MSK: No myalgia, back pain Neuro: No headaches, weakness, paresthesias Skin: No rashes or lesions PMFSH Medical History No pertinent past medical history Family History Mother Diabetes Hypertension Maternal Grandfather Diabetes Hypertension Maternal Grandmother Diabetes Hypertension Colon cancer Social History (Updated 02/06/22 @ 16:26 by CHRIS Mobley) Alcohol intake: current Alcohol intake frequency: holidays/special occasions only Patient Tobacco Use Status: Never used Tobacco Use of substances other than those prescribed or required for medical reasons: Yes Substance Use Type: Marijuana Advance Directives: No Advance Directives Information Provided: Yes Meds Allergies Allergy/AdvReac Type Severity Reaction Status Date / Time No Known Allergies Allergy Unverified 11/01/19 19:29 [No Known Allergies*] Active Medications: Current Medications Acetaminophen (Acetaminophen 325 Mg Tablet) 650 mg PO Q6H PRN PRN Reason: Pain, Mild (Pain Scale 1-3) Enoxaparin Sodium (Enoxaparin Sodium 40 Mg/0.4 Ml Syringe) 40 mg SUBCUT Q24H JENIFER Sodium Chloride (Ns) 1,000 mls @ 100 mls/hr IVCONT .Q10H JENIFER Morphine Sulfate (Morphine Sulfate 4 Mg/Ml Cartridge) 2 mg IVPUSH Q4H PRN; Protocol PRN Reason: Pain, Severe (Pain Scale 7-10) Oxycodone HCl (Oxycodone Hcl Immed Release 5 Mg Tablet) 5 mg PO Q6H PRN PRN Reason: Pain, Moderate (Pain Scale 4-6 Pharmacy Consult (Consult Rx Perform Med Rec) 1 each MISCELLANE ONCE PRN PRN Reason: Consult order Sodium Chloride (0.9 % Sodium Chloride Flush 3 Ml Syringe) 3 ml IVFLUSH QSHIFT [facility] Home Medications Medication Instructions Recorded Confirmed Last Taken Type acetaminophen 325 mg tablet 650 mg PO QID PRN Pain 02/06/22 02/06/22 02/06/22 History Physical Exam Vital Signs and Narrative: Vital Signs: Last Vital Signs Temp 98.8 F 02/06/22 14:00 Pulse 113 H 02/06/22 14:00 Resp 15 02/06/22 14:00 BP 126/81 02/06/22 14:00 Pulse Ox 100 02/06/22 14:00 O2 Del Method 02/06/22 14:00 BMI result Body Mass Index 42.3 Constitutional - Awake and Alert, No apparent distress Eyes - PERRLA, EOMI Cardiovascular - S1S2, RRR, No edema Respiratory - Normal lung expansion, Normal respiratory effort, No respiratory distress, CTA bilaterally Gastrointestinal - NT / ND; +BS; No rebound or guarding - No CVA tenderness Extremities - no calf tenderness bilaterally, no swelling Skin - Warm/Dry Neurological - Alert & oriented x3 Psychological - Appropriate affect Results Labs CBC and Chem 7: 02/06/22 15:00 02/06/22 15:00 Labs: Laboratory Results - last 24 hr 02/06/22 02/06/22 02/06/22 14:16 15:00 15:00 MCV 83.2 MCH 27.6 MCHC 33.2 RDW 12.7 Plt Count 207 MPV 10.7 Immature Gran % (Auto) 0.4 Neut % (Auto) 83.0 H Lymph % (Auto) 9.7 L [place] % (Auto) 6.5 Eos % (Auto) 0.1 Baso % (Auto) 0.3 Lymph # (Auto) 1.3 [place] # (Auto) 0.9 Eos # (Auto) 0.0 Baso # (Auto) 0.0 Abs Immat Gran (auto) 0.06 H Absolute Neuts (auto) 11.1 H Absolute Nucleated RBC 0.000 Nucleated RBC % (auto) 0.0 Anion Gap 13 Estim Creat Clear Calc 148.9 Estimated GFR > 60 Random Glucose 87 Lactic Acid Calcium 9.1 Magnesium 1.9 Total Bilirubin 0.3 AST 24 ALT 16 Alkaline Phosphatase 71 Total Protein 7.3 Albumin 4.1 COVID-19 (FERNANDO) Negative COVID-19 Clin Com See Note 02/06/22 15:00 MCV MCH MCHC RDW Plt Count MPV Immature Gran % (Auto) Neut % (Auto) Lymph % (Auto) [place] % (Auto) Eos % (Auto) Baso % (Auto) Lymph # (Auto) [place] # (Auto) Eos # (Auto) Baso # (Auto) Abs Immat Gran (auto) Absolute Neuts (auto) Absolute Nucleated RBC Nucleated RBC % (auto) Anion Gap Estim Creat Clear Calc Estimated GFR Random Glucose Lactic Acid 1.4 Calcium Magnesium Total Bilirubin AST ALT Alkaline Phosphatase Total Protein Albumin COVID-19 (FERNANDO) COVID-19 Clin Com Assessment and Plan (1) Gram-negative bacteremia: Status: Acute (2) Pyelonephritis: Status: Acute Plan 26-year-old female without significant medical history admitted for acute pyelonephritis with sepsis and gram negative bacteremia. # gram-negative bacteremia-secondary to pyelonephritis -final initial blood cultures and repeat blood cultures pending -IV ceftriaxone -await final cultures. Echocardiogram and ID consult if indicated # sepsis-secondary to acute pyelonephritis -patient with tachycardia and leukocytosis 13.4. Lactic acid normal, no other evidence of end-organ damage -treat pyelonephritis per below -follow WBC -monitor vitals # acute pyelonephritis -Initial urine culture contaminated. Repeat pending (Has already been given dose of ceftriaxone) -IV ceftriaxone for empiric coverage -Aggressive IVF -Ondansetron prn n/v -Clear liquid diet -Follow BMP Full code DVT prophylaxis- lovenox Patient requires inpatient stay of at least 2 midnights for management of acute pyelonephritis with sepsis and Gram-negative bacteremia requiring IV antibiotics until final cultures are obtained with close monitoring of vital signs Time Spent With Patient Time: Total time managing care of this patient today ____ minutes. Quality Stroke Does the patient have a stroke diagnosis?: No VTE Prior VTE?: No VTE Risk Level:: Medical - moderate - high VTE Device Contraindication: Treatment Not Indicated VTE Drug Contraindication: N/A - Med Ordered
[2022-02-06 17:00] VITALS: BP 124/77; PULSE 68; RESP 15; TEMP 36.4; O2SAT 96
[2022-02-06 17:03] LABS: Appearance Urine Clear; Color Urine Dark Yellow; Glucose Urine UA Negative (Negative); Leukocyte Esterase Urine Small (1+) (Negative); Nitrite Urine Positive (Negative); PH 7.5 (5.0-9.0); UMIC TRIGGER UACC YES; Urine Blood Moderate (2+) (Negative); Urine Ketones 15 mg/dL (Negative); Urine Protein Trace mg/dL (Neg-Trace)
[2022-02-06 17:55] VITALS: BMI 44.9
[2022-02-06 18:09] VITALS: BP 133/61; PULSE 99; RESP 20; TEMP 37.6; O2SAT 98
[2022-02-06 18:20] LABS: Bacteria Urine 1+ (None Seen); Hyaline Casts Urine 0-2 /LPF (0-2); RBC Urine >20 /HPF (0-2); UACC Culture Trigger YES
[2022-02-06] MEDS: oxyCODONE HCl Immed Release 5 MG TABLET PO (20:17)
[2022-02-07] VITALS: BP 119/60; PULSE 100; RESP 18; TEMP 36.1; O2SAT 96
[2022-02-07] MEDS: oxyCODONE HCl Immed Release 5 MG TABLET PO (05:25)
[2022-02-07 06:51] LABS: MANUAL DIFF FLAG NO
[2022-02-07 06:54] LABS: Basophils Percent Auto 0.3 % (0-2); Eosinophils Percent Auto 0.3 % (0-4); Hematocrit 33.8 % (37.0-47.0); Hemoglobin 11.6 g/dl (12.0-16.0); Imm Gran Abs Auto 0.07 X10*3/uL (0.00-0.03); Imm Gran Pct Auto 0.6 % (0.0-0.4); Lymphocytes Absolute Auto 1.6 X10*3/uL (1.2-4.9); Mean Corpuscular HGB Conc 34.3 g/dl (31.0-35.0); Mean Corpuscular Hemoglobin 28.3 pg (27.0-33.0); Mean Corpuscular Volume 82.4 fL (80.0-98.0); Mean Platelet Volume 10.2 fL (9.4-12.3); Monocytes Absolute Auto 1.1 X10*3/uL (0.1-1.2); Monocytes Percent Auto 9.7 % (2-11); Neutrophils Absolute Auto 8.7 x10*3/uL (2.0-8.3); Neutrophils Percent Auto 75.1 % (45-73); Platelet Count 169 X10*3/uL (160-400); Red Cell Distribution Width 12.8 % (11.0-16.0); White Blood Count 11.6 X10*3/uL (4.8-10.8)
[2022-02-07 08:00] VITALS: BP 118/60; PULSE 90; RESP 18; TEMP 36; O2SAT 94
--- NOTE | 2022-02-07 10:56 | HO.PM.IMPN ---
Subjective Subjective Date of Service: 02/07/22 Interval History: Seen in follow up for acute pyelonephritis with gram negative bacteremia Interval history: Significant nausea ongoing with PO intake, no vomiting. Still reporting dysuria. Currently pain free, but has had intermittent severe pain well managed with narcotics. Afebrile. Tacycardia improving, WBC trending down. Review of Systems General: No fevers, malaise, unintentional weight loss Cardiovascular: No chest pain, palpitations, or leg edema Respiratory: No shortness of breath, wheezing, cough GI: +nausea. No abdominal pain, vomiting, diarrhea, constipation, melena, hematochezia : +dysuria. No hematuria, increased urinary frequency, decreased urinary output MSK: No myalgia, back pain Neuro: No headaches, weakness, paresthesias Skin: No rashes or lesions Physical Exam Vital Signs: Vital Signs: Last Vital Signs Temp 96.8 F 02/07/22 08:00 Pulse 90 02/07/22 08:00 Resp 18 02/07/22 08:00 BP 118/60 02/07/22 08:00 Pulse Ox 94 02/07/22 08:00 O2 Del Method 02/07/22 08:00 BMI result Body Mass Index 44.9 Constitutional - Awake and Alert, No apparent distress Eyes - PERRLA, EOMI Cardiovascular - S1S2, RRR, No edema Respiratory - Normal lung expansion, Normal respiratory effort, No respiratory distress, CTA bilaterally Gastrointestinal - NT / ND; +BS; No rebound or guarding - No CVA tenderness Extremities - no calf tenderness bilaterally, no swelling Skin - Warm/Dry Neurological - Alert & oriented x3 Psychological - Appropriate affect Objective Data Active Medications Acetaminophen (Acetaminophen 325 Mg Tablet) 650 mg PO Q6H PRN PRN Reason: Pain, Mild (Pain Scale 1-3) Last Admin: 02/07/22 05:25 Dose: 650 mg Documented By: JIMBO Enoxaparin Sodium (Enoxaparin Sodium 40 Mg/0.4 Ml Syringe) 40 mg SUBCUT Q24H [facility] Last Admin: 02/06/22 17:29 Dose: 40 mg Documented By: TORSTEN Hydromorphone HCl (Hydromorphone Hcl 0.5 Mg/0.5 Ml Syringe) 0.25 mg IVPUSH Q4H PRN; Protocol PRN Reason: Pain, Severe (Pain Scale 7-10) Last Admin: 02/07/22 09:44 Dose: 0.25 mg Documented By: FRANDY Sodium Chloride (Ns) 1,000 mls @ 125 mls/hr IVCONT .Q8H [facility] Last Admin: 02/07/22 09:43 Dose: 125 mls/hr Documented By: FRANDY Ceftriaxone Sodium 1 gm/ (Sodium Chloride) 50 mls @ 100 mls/hr IV Q24H [facility] Last Infusion: 02/06/22 18:08 Dose: 0 mls/hr Documented By: GULSHAN Oxycodone HCl (Oxycodone Hcl Immed Release 5 Mg Tablet) 5 mg PO Q6H PRN PRN Reason: Pain, Moderate (Pain Scale 4-6 Last Admin: 02/07/22 05:25 Dose: 5 mg Documented By: JIMBO Pharmacy Consult (Consult Rx Perform Med Rec) 1 each MISCELLANE ONCE PRN PRN Reason: Consult order Sodium Chloride (0.9 % Sodium Chloride Flush 3 Ml Syringe) 3 ml IVFLUSH QSHIFT [facility] Last Admin: 02/07/22 08:13 Dose: Not Given Documented By: FRANDY Non-Admin Reason: IV Running Labs CBC & Chem 7: 02/07/22 06:40 02/06/22 15:00 Labs: Laboratory Results - last 24 hr 02/06/22 02/06/22 02/06/22 14:16 15:00 15:00 MCV 83.2 MCH 27.6 MCHC 33.2 RDW 12.7 Plt Count 207 MPV 10.7 Immature Gran % (Auto) 0.4 Neut % (Auto) 83.0 H Lymph % (Auto) 9.7 L [place] % (Auto) 6.5 Eos % (Auto) 0.1 Baso % (Auto) 0.3 Lymph # (Auto) 1.3 [place] # (Auto) 0.9 Eos # (Auto) 0.0 Baso # (Auto) 0.0 Abs Immat Gran (auto) 0.06 H Absolute Neuts (auto) 11.1 H Absolute Nucleated RBC 0.000 Nucleated RBC % (auto) 0.0 Anion Gap 13 Estim Creat Clear Calc 148.9 Estimated GFR > 60 Random Glucose 87 Lactic Acid Calcium 9.1 Magnesium 1.9 Total Bilirubin 0.3 AST 24 ALT 16 Alkaline Phosphatase 71 Total Protein 7.3 Albumin 4.1 Urine Color Urine Appearance Urine pH Ur Specific [place] Urine Protein Urine Glucose (UA) Urine Ketones Urine Blood Urine Nitrite Ur Leukocyte Esterase Urine RBC Urine WBC Ur Squamous Epith Cells Urine Bacteria Hyaline Casts COVID-19 (FERNANDO) Negative COVID-19 Clin Com See Note 02/06/22 02/06/22 02/07/22 15:00 16:57 06:40 MCV 82.4 MCH 28.3 MCHC 34.3 RDW 12.8 Plt Count 169 MPV 10.2 Immature Gran % (Auto) 0.6 H Neut % (Auto) 75.1 H Lymph % (Auto) 14.0 L [place] % (Auto) 9.7 Eos % (Auto) 0.3 Baso % (Auto) 0.3 Lymph # (Auto) 1.6 [place] # (Auto) 1.1 Eos # (Auto) 0.0 Baso # (Auto) 0.0 Abs Immat Gran (auto) 0.07 H Absolute Neuts (auto) 8.7 H Absolute Nucleated RBC 0.000 Nucleated RBC % (auto) 0.0 Anion Gap Estim Creat Clear Calc Estimated GFR Random Glucose Lactic Acid 1.4 Calcium Magnesium Total Bilirubin AST ALT Alkaline Phosphatase Total Protein Albumin Urine Color Dark Yellow Urine Appearance Clear Urine pH 7.5 Ur Specific [place] 1.020 Urine Protein Trace Urine Glucose (UA) Negative Urine Ketones 15 Urine Blood Moderate (2+) H Urine Nitrite Positive H Ur Leukocyte Esterase Small (1+) H Urine RBC >20 H Urine WBC 11-20 H Ur Squamous Epith Cells 3-5 Urine Bacteria 1+ Hyaline Casts 0-2 COVID-19 (FERNANDO) COVID-19 Clin Com Assessment and Plan (1) Gram-negative bacteremia: Status: Acute (2) Pyelonephritis: Status: Acute Plan 26-year-old female without significant medical history admitted for acute pyelonephritis with sepsis and gram negative bacteremia. # gram-negative bacteremia-secondary to pyelonephritis -final initial blood cultures and repeat blood cultures pending -IV ceftriaxone -await final cultures.? Echocardiogram and ID consult if indicated # sepsis-secondary to acute pyelonephritis- improving -WBC trending down, afebrile, tachycardia improving -treat pyelonephritis as below -follow WBC -monitor vitals # acute pyelonephritis -Initial urine culture contaminated. Repeat pending (Has already been given dose of ceftriaxone) -IV ceftriaxone for empiric coverage -Aggressive IVF. Still not tolerating PO. Advance diet -Ondansetron prn n/v -Pain management prn -Pyridium TID -Follow BMP Full code DVT prophylaxis- lovenox Patient requires ongoing inpatient stay for management of acute pyelonephritis with sepsis and Gram-negative bacteremia requiring IV antibiotics until final cultures are obtained with close monitoring of vital signs Quality Stroke Does the patient have a stroke diagnosis?: No VTE Prior VTE?: No VTE Risk Level:: Medical - moderate - high VTE Device Contraindication: Treatment Not Indicated VTE Drug Contraindication: N/A - Med Ordered
[2022-02-07 11:51] VITALS: BP 119/70; PULSE 74; RESP 18; TEMP 36.5; O2SAT 100
--- NOTE | 2022-02-07 13:26 | MHC.CM.PN ---
MILLIE DELIVERED.. PT LIVES IN [address] APT WITH S/O AND CHILD. INDEPENDENT AT BASELINE. NO SERVICES OR DME PRIOR. NO HCP, DECLINES. NO COVID [place] NO PCP, [facility] G[facility]. DP: HOME, NO SERVICES. PT HAS CAR IN LOT. CM WILL CONTINUE TO FOLLOW.
[2022-02-07] MEDS: Phenazopyridine HCL 200 MG TABLET PO ×2 (15:44→19:29)
[2022-02-07 16:00] VITALS: BP 129/70; PULSE 76; RESP 20; TEMP 36.1; O2SAT 98
[2022-02-07 19:37] VITALS: BP 129/67; PULSE 86; RESP 18; TEMP 36.4; O2SAT 99
--- NOTE | 2022-02-07 19:49 | PC.NURSE ---
Patient c/o itchyness in her vaginal area,reports no discharge,dr. Alonzo made aware
[2022-02-07 23:38] VITALS: BP 116/56; PULSE 85; RESP 18; TEMP 37.1; O2SAT 97
[2022-02-08] VITALS (7 sets, daily range): BP systolic 98–131; BP diastolic 53–71; PULSE 66–80; RESP 16–18; TEMP 36–37.3; O2SAT 96–98
[2022-02-08 06:02] LABS: MANUAL DIFF FLAG NO
[2022-02-08 06:29] LABS: Basophils Percent Auto 0.3 % (0-2); Eosinophils Absolute Auto 0.1 X10*3/uL (0.0-0.4); Eosinophils Percent Auto 1.5 % (0-4); Hematocrit 34.6 % (37.0-47.0); Hemoglobin 11.5 g/dl (12.0-16.0); Imm Gran Abs Auto 0.06 X10*3/uL (0.00-0.03); Imm Gran Pct Auto 0.6 % (0.0-0.4); Lymphocytes Absolute Auto 2.2 X10*3/uL (1.2-4.9); Lymphocytes Percent Auto 24.1 % (20-40); Mean Corpuscular HGB Conc 33.2 g/dl (31.0-35.0); Mean Corpuscular Volume 84.2 fL (80.0-98.0); Monocytes Absolute Auto 1.1 X10*3/uL (0.1-1.2); Monocytes Percent Auto 12.2 % (2-11); Neutrophils Absolute Auto 5.7 x10*3/uL (2.0-8.3); Neutrophils Percent Auto 61.3 % (45-73); Platelet Count 156 X10*3/uL (160-400); Red Blood Count 4.11 X10*6/uL (4.20-5.50); Red Cell Distribution Width 12.7 % (11.0-16.0); White Blood Count 9.2 X10*3/uL (4.8-10.8)
[2022-02-08 06:43] LABS: Anion Gap 13 (12-20); Blood Urea Nitrogen 3 mg/dL (9-16); Calcium 8.1 mg/dL (8.4-10.2); Carbon Dioxide 18 mmol/L (22-29); Chloride 111 mmol/L (96-108); Estimated Glomerular Filt Rate > 60; Glucose Random 81 mg/dL (60-115); Potassium 3.2 mmol/L (3.3-5.1); Sodium 139 mmol/L (135-145)
[2022-02-08] MEDS: Phenazopyridine HCL 200 MG TABLET PO ×3 (09:00→21:31)
--- NOTE | 2022-02-08 12:57 | HO.PM.IMPN ---
Subjective Subjective Date of Service: 02/08/22 Interval History: Seen in follow up for acute pyelonephritis with gram negative bacteremia Interval history: Significant nausea ongoing, vomiting x 1 with breakfast, tolerated lunch. Still reporting 7-10/10 right flank/Right sided pain, improves with narcotics. Drenching night sweats. Still reporting dysuria. Afebrile, VSS Review of Systems General: +drenching night sweats. No fevers, malaise, unintentional weight loss Cardiovascular: No chest pain, palpitations, or leg edema Respiratory: No shortness of breath, wheezing, cough GI: +nausea, +vomiting. No abdominal pain, diarrhea : +dysuria, right flank pain. No hematuria, increased urinary frequency DIAGNOSTIC CARDIAC SONOGRAPHER: +vulvar irritation/itch. No vaginal discharge MSK: No myalgia, back pain Neuro: No headaches, weakness, paresthesias Skin: No rashes or lesions Physical Exam Vital Signs: Vital Signs: Last Vital Signs Temp 96.8 F 02/08/22 07:04 Pulse 68 02/08/22 07:04 Resp 18 02/08/22 07:04 BP 131/68 02/08/22 07:04 Pulse Ox 96 02/08/22 07:04 O2 Del Method 02/08/22 07:04 BMI result Body Mass Index 44.9 Constitutional - Awake and Alert, No apparent distress Eyes - PERRLA, EOMI Cardiovascular - S1S2, RRR, No edema Respiratory - Normal lung expansion, Normal respiratory effort, No respiratory distress, CTA bilaterally Gastrointestinal - RUQ ttp, ND; +BS; No rebound or guarding : Mild right sided CVA tenderness Extremities - no calf tenderness bilaterally, no swelling Skin - Warm/Dry Neurological - Alert & oriented x3 Psychological - Appropriate affect Objective Data Active Medications Acetaminophen (Acetaminophen 325 Mg Tablet) 650 mg PO Q6H PRN PRN Reason: Pain, Mild (Pain Scale 1-3) Last Admin: 02/08/22 00:42 Dose: 650 mg Documented By: DUANE Enoxaparin Sodium (Enoxaparin Sodium 40 Mg/0.4 Ml Syringe) 40 mg SUBCUT Q24H [facility] Last Admin: 02/07/22 15:45 Dose: 40 mg Documented By: FRANDY Hydromorphone HCl (Hydromorphone Hcl 0.5 Mg/0.5 Ml Syringe) 0.25 mg IVPUSH Q4H PRN; Protocol PRN Reason: Pain, Severe (Pain Scale 7-10) Last Admin: 02/08/22 12:54 Dose: 0.25 mg Documented By: FEDE Ceftriaxone Sodium 1 gm/ (Sodium Chloride) 50 mls @ 100 mls/hr IV Q24H [facility] Last Infusion: 02/07/22 16:16 Dose: 0 mls/hr Documented By: FRANDY Ondansetron HCl (Ondansetron Hcl 4 Mg/2 Ml Vial) 4 mg IVPUSH Q6H PRN PRN Reason: Nausea and Vomiting Last Admin: 02/08/22 08:59 Dose: 4 mg Documented By: FEDE Oxycodone HCl (Oxycodone Hcl Immed Release 5 Mg Tablet) 5 mg PO Q6H PRN PRN Reason: Pain, Moderate (Pain Scale 4-6 Last Admin: 02/07/22 05:25 Dose: 5 mg Documented By: JIMBO Pharmacy Consult (Consult Rx Perform Med Rec) 1 each MISCELLANE ONCE PRN PRN Reason: Consult order Phenazopyridine HCl (Phenazopyridine Hcl 200 Mg Tablet) 200 mg PO TID [facility] Last Admin: 02/08/22 12:54 Dose: 200 mg Documented By: FEDE Sodium Chloride (0.9 % Sodium Chloride Flush 3 Ml Syringe) 3 ml IVFLUSH QSHIFT [facility] Last Admin: 02/08/22 09:03 Dose: Not Given Documented By: FEDE Non-Admin Reason: IV Running Labs CBC & Chem 7: 02/08/22 05:58 02/08/22 05:58 Labs: Laboratory Results - last 24 hr 02/08/22 02/08/22 05:58 05:58 MCV 84.2 MCH 28.0 MCHC 33.2 RDW 12.7 Plt Count 156 L MPV 11.0 Immature Gran % (Auto) 0.6 H Neut % (Auto) 61.3 Lymph % (Auto) 24.1 [place] % (Auto) 12.2 H Eos % (Auto) 1.5 Baso % (Auto) 0.3 Lymph # (Auto) 2.2 [place] # (Auto) 1.1 Eos # (Auto) 0.1 Baso # (Auto) 0.0 Abs Immat Gran (auto) 0.06 H Absolute Neuts (auto) 5.7 Absolute Nucleated RBC 0.000 Nucleated RBC % (auto) 0.0 Anion Gap 13 Estim Creat Clear Calc 182.0 Estimated GFR > 60 Random Glucose 81 Calcium 8.1 L D Microbiology Microbiology Results: Microbiology 02/06/22 15:00 Blood Culture - Preliminary Blood - Venous No growth after 24 hours. 02/06/22 15:00 Blood Culture - Preliminary Blood - Venous No growth after 24 hours. Assessment and Plan (1) Gram-negative bacteremia: Status: Acute (2) Pyelonephritis: Status: Acute Plan 26-year-old female without significant medical history admitted for acute pyelonephritis with sepsis and gram negative bacteremia. # gram-negative bacteremia-secondary to pyelonephritis -final initial blood cultures and repeat blood cultures pending -IV ceftriaxone -Repeat cultures negative # sepsis-secondary to acute pyelonephritis- resolved -treat pyelonephritis as below -follow WBC -monitor vitals # acute pyelonephritis -Initial urine culture contaminated. BC x 2 on admission with E.Coli -IV ceftriaxone (D3) -Tolerating PO. Regular diet. DC IVF -Ondansetron prn n/v -Pain management prn -Pyridium TID -Still efra significant discomfort and drenching night sweats, though afebilre. Renal U/S r/o abscess -Follow BMP #Hypokalemia- likely dilutional from IVR -K 3.2 -Given 40meq PO KCl -Follow BMP Full code DVT prophylaxis- lovenox Patient requires ongoing inpatient stay for management of acute pyelonephritis with sepsis and Gram-negative bacteremia requiring IV antibiotics until final cultures are obtained with close monitoring of vital signs Time Spent With Patient Time: Total time managing care of this patient today ____ minutes. Quality Stroke Does the patient have a stroke diagnosis?: No VTE Prior VTE?: No VTE Risk Level:: Medical - moderate - high VTE Device Contraindication: Treatment Not Indicated VTE Drug Contraindication: N/A - Med Ordered
[2022-02-09] VITALS: BP 120/65; PULSE 81; RESP 18; TEMP 36.9; O2SAT 97
[2022-02-09 06:05] LABS: MANUAL DIFF FLAG NO
[2022-02-09 06:48] LABS: Anion Gap 16 (12-20); Basophils Percent Auto 0.5 % (0-2); Blood Urea Nitrogen 4 mg/dL (9-16); Calcium 8.8 mg/dL (8.4-10.2); Carbon Dioxide 19 mmol/L (22-29); Chloride 109 mmol/L (96-108); Creatinine Clr Calc Pharmacy 190.5; Eosinophils Absolute Auto 0.2 X10*3/uL (0.0-0.4); Estimated Glomerular Filt Rate > 60; Glucose Random 79 mg/dL (60-115); Imm Gran Abs Auto 0.05 X10*3/uL (0.00-0.03); Imm Gran Pct Auto 0.6 % (0.0-0.4); Lymphocytes Absolute Auto 2.3 X10*3/uL (1.2-4.9); Lymphocytes Percent Auto 26.2 % (20-40); Mean Corpuscular HGB Conc 33.3 g/dl (31.0-35.0); Mean Corpuscular Hemoglobin 27.9 pg (27.0-33.0); Mean Corpuscular Volume 83.7 fL (80.0-98.0); Mean Platelet Volume 10.7 fL (9.4-12.3); Monocytes Absolute Auto 0.8 X10*3/uL (0.1-1.2); Neutrophils Absolute Auto 5.3 x10*3/uL (2.0-8.3); Neutrophils Percent Auto 61.7 % (45-73); Platelet Count 209 X10*3/uL (160-400); Potassium 3.6 mmol/L (3.3-5.1); Red Cell Distribution Width 12.8 % (11.0-16.0); Sodium 140 mmol/L (135-145); White Blood Count 8.6 X10*3/uL (4.8-10.8)
[2022-02-09 08:00] VITALS: BP 125/60; PULSE 77; RESP 16; TEMP 37.1; O2SAT 97
[2022-02-09] MEDS: Phenazopyridine HCL 200 MG TABLET PO (09:04)
[2022-02-09] MEDS: oxyCODONE HCl Immed Release 5 MG TABLET PO (10:47)
[2022-02-09 12:00] VITALS: TEMP 36.6
--- NOTE | 2022-02-09 12:27 | MHC.CM.PN ---
HOME TODAY - SELF CARE. RN AWARE OF PLAN
--- NOTE | 2022-02-09 15:03 | W.PM.IDCN ---
History of Present Illness Data of Consult Service Date: 02/09/22 Requesting physician: Lalita Fierro Primary Care Provider: Unknown Physician HPI Reason for consult: pyelonephritis,bacteremia She presents with right flank pain,told to come because blood culture done day before in ER shows gram negative rods She was seen day before in ER and discharged with po Cipro. There is no obstruction seen in CT scan. Review of Systems Review of Systems: Yes all other systems are reviewed and are negative [facility] Past Medical History Medical History No pertinent past medical history Family History Family History Mother Diabetes Hypertension Maternal Grandfather Diabetes Hypertension Maternal Grandmother Diabetes Hypertension Colon cancer Family history: reviewed and not pertinent Social History Social History Alcohol intake: current Alcohol intake frequency: 3 or more drinks per day Patient Tobacco Use Status: Never used Tobacco Substance Use Type: Marijuana service: No Current occupational status: unemployed Meds Allergies Allergy/AdvReac Type Severity Reaction Status Date / Time No Known Allergies Allergy Unverified 11/01/19 19:29 [No Known Allergies*] Home Medications Medication Instructions Recorded Confirmed Last Taken Type acetaminophen 325 mg tablet 650 mg PO QID PRN Pain 02/06/22 02/06/22 02/06/22 History Physical Exam Vital Signs: Vital Signs: Last Vital Signs Temp 98 F 02/09/22 12:00 Pulse 77 02/09/22 08:00 Resp 16 02/09/22 08:00 BP 125/60 02/09/22 08:00 Pulse Ox 97 02/09/22 08:00 O2 Del Method 02/09/22 08:00 BMI result Body Mass Index 44.9 Const: General: cooperative HEENT: Head: Yes normal to inspection Face and sinus: Yes normal facial exam Mouth: Normal oral and palatal mucosa present Teeth and gingiva: dentition normal Eyes: General: appearance normal, both eyes and all related structures Pupils: Equal, round and reactive pupils present Resp: Effort & Inspection: normal respiratory effort Cardio: Rate: regular rate Rhythm: regular rhythm GI: Palpation (GI): Soft to palpation and nontender Back/Spine/Pelvis: Other: slt right pain right Skin: General skin exam: no rashes or lesions noted Neuro: General: moves all extremities Cranial nerves: Yes Equal, round and reactive pupils present Extrem: General: Yes normal to inspection Psych: Appearance: grossly normal Results Labs CBC & Chem 7: 02/09/22 05:20 02/09/22 05:20 Labs: Short CBC 02/09/22 Range/Units 05:20 WBC 8.6 (4.8-10.8) X10*3/uL Hgb 12.0 (12.0-16.0) g/dl Hct 36.0 L (37.0-47.0) % Plt Count 209 D (160-400) X10*3/uL BMP 02/09/22 05:20 Sodium 140 Potassium 3.6 Chloride 109 H Carbon Dioxide 19 L BUN 4 L Creatinine 0.64 Calcium 8.8 D Microbiology Microbiology Results: Microbiology 02/06/22 15:00 Blood - Venous Blood Culture - Preliminary No growth after 48 hours. 02/06/22 15:00 Blood - Venous Blood Culture - Preliminary No growth after 48 hours. Assessment and Plan (1) Gram-negative bacteremia: Status: Acute Apparently there are two organisms bacteremia per Microbiology,both E coli She has ESBL with susceptibility to Gentamicin and Levaquin and another more sensitive E coli There is no urinary obstruction. (2) Pyelonephritis: Status: Acute Plan 14 days po Levaquin Acidify urine/cranberry Time Spent With Patient Time: Total time managing care of this patient today ____ minutes.
--- NOTE | 2022-02-09 15:31 | PM.DS ---
DS: Providers Provider Date of Service: 02/09/22 Date of admission: 02/06/22 16:10 Date of discharge: 02/09/22 Primary care physician: Virginie Physician Admitting clinician: Lalita Fierro Attending physician on admission: Daniele Kennedy Consults: 02/09/22 11:02 Consult to Infectious Diseases Routine Consulting Provider: Fatou Ferrair Reason for consultation: pyelonephritis w/ ecoli bacteremia- no susc report. Ceftin ok? Attending physician on discharge: Brian Cohn Discharging clinician: Lalita Fierro DS: Diagnosis Discharge Diagnosis (1) Gram-negative bacteremia: Status: Acute (2) Pyelonephritis: Status: Acute DS: Summary Hospital Course Hospital Course: HPI on admission: 26-year-old female without significant medical history presents to the ED today for further evaluation of positive blood cultures x2 with Gram-negative rods.? She was present in the ED yesterday complaining of right lower abdominal pain ongoing for 3 days radiating into the right flank with associated nausea, vomiting, decreased p.o. intake, increased frequency of urination and dysuria.? She states she was discharged yesterday with ciprofloxacin but has been unable to take the medication due to vomiting.? She states she has also had shaking chills but has not taken her temperature.? In the ED, she is afebrile, tachycardic to 113, no hypotension.? Leukocytosis 13.4.? Renal function and electrolytes normal.? Lactic acid 1.4.? Negative for COVID-19.? CT of the abdomen/pelvis yesterday showing subtle right Laquita ureteral stranding without significant hydronephrosis or obstructing calculus, those could reflect sequela of recently passed stone or ascending infection.? There is also trace pelvic free fluid and slight dependent hyperdensity in the gallbladder possibly reflecting sludge or gallstones.? UA in the ED yesterday showing 3+ leukocytes, 2+ blood, 3+ protein, urinary sediment, 1+ bacteria.? Urine culture showing mixed bacterial pete > 100,000, characteristic of urogenital contamination.? Blood culture x2 positive for Gram-negative rods.? She was given dose of ceftriaxone in the ED with repeat blood cultures x2 pending.? Patient to be admitted with acute pyelonephritis with sepsis and gram negative bacteremia. Hospital Course: Pt admitted for acute suspected ascending urinary infection with sepsis and gram-negative bacteremia. Treated with IV ceftriaxone with improvement urinary symptoms. Pt remained afebrile throughout stay and mild tachycardia resolved with treatment. WBC trended down. Pt still with severe pain on D3 with drenching night sweats, still afebrile. Tolerating diet. Renal U/S ordered and negative for abscess. UC unfortunately was contaminated. Blood cultures grew E.Coli and ESBL. Evaluated by infectious disease. recommending discharge with PO levaquin 750mg daily x 14 days to complete treatment for complicated UTI and EColi/ESBL bacteremia. Given information on PCPs in the area to follow up on and advised to follow up soon. Time Spent with Patient Time attestation: Total time managing care of this patient today ____ minutes. Discharge coordination time: Greater than 30 minutes Quality: Safe Use of Opioids Does Pt have an Active Cancer Diagnosis on the Problem List?: No Quality: Stroke Does the patient have a stroke diagnosis?: No Physical Exam Vital Signs: Vital Signs: Last Vital Signs Temp 98 F 02/09/22 12:00 Pulse 77 02/09/22 08:00 Resp 16 02/09/22 08:00 BP 125/60 02/09/22 08:00 Pulse Ox 97 02/09/22 08:00 O2 Del Method 02/09/22 08:00 BMI result Body Mass Index 44.9 Constitutional - Awake and Alert, No apparent distress Eyes - PERRLA, EOMI Cardiovascular - S1S2, RRR, No edema Respiratory - Normal lung expansion, Normal respiratory effort, No respiratory distress, CTA bilaterally Gastrointestinal - NT / ND; +BS; No rebound or guarding - No CVA tenderness Extremities - no calf tenderness bilaterally, no swelling Skin - Warm/Dry Neurological - Alert & oriented x3 Psychological - Appropriate affect DS: Data Data Completed and Pending Labs on day of discharge: Laboratory Results - last 24 hr 02/09/22 02/09/22 05:20 05:20 WBC 8.6 RBC 4.30 Hgb 12.0 Hct 36.0 L MCV 83.7 MCH 27.9 MCHC 33.3 RDW 12.8 Plt Count 209 D MPV 10.7 Immature Gran % (Auto) 0.6 H Neut % (Auto) 61.7 Lymph % (Auto) 26.2 [place] % (Auto) 9.0 Eos % (Auto) 2.0 Baso % (Auto) 0.5 Lymph # (Auto) 2.3 [place] # (Auto) 0.8 Eos # (Auto) 0.2 Baso # (Auto) 0.0 Abs Immat Gran (auto) 0.05 H Absolute Neuts (auto) 5.3 Absolute Nucleated RBC 0.000 Nucleated RBC % (auto) 0.0 Sodium 140 Potassium 3.6 Chloride 109 H Carbon Dioxide 19 L Anion Gap 16 BUN 4 L Creatinine 0.64 Estim Creat Clear Calc 190.5 Estimated GFR > 60 Random Glucose 79 Calcium 8.8 D Preliminary micro results at discharge 02/06/22 15:00 Blood Culture - Preliminary Blood - Venous No growth after 48 hours. 02/06/22 15:00 Blood Culture - Preliminary Blood - Venous No growth after 48 hours. Discharge Plan Discharge Anticipated Discharge Date/Time: 02/09/22 12:53 Patient Disposition: Home, Self-Care Discharge Diagnosis: Pyelonephritis, EColi Bacteremia Referrals: Physician,Unknown J [Primary Care Provider] - 1 Week Discharge Medications: New fluconazole [Diflucan] 150 mg tablet 150 mg PO Q3D Qty: 2 0RF Rx Instructions: Take for vulvovaginal irritation. May repeat dose once after 72 hours if no improvement levofloxacin 750 mg tablet 750 mg PO DAILY Qty: 14 0RF Continued albuterol sulfate [ProAir HFA] 90 mcg/actuation HFA aerosol inhaler 2 puff inhalation Q4-6H PRN (Reason: shortness of breath or wheezing) Qty: 8.5 0RF phenazopyridine [Pyridium] 200 mg tablet 200 mg PO TID 2 Days Qty: 6 0RF acetaminophen 325 mg Tablet 650 mg PO QID PRN (Reason: Pain) Discontinued ciprofloxacin HCl [Cipro] 500 mg tablet 500 mg PO BID Qty: 20 0RF Discharge Orders: Discharge Order (Routine); Ordered 02/09/22 Ordered By: Lalita Fierro Diet: Regular diet Activity on Discharge: As tolerated Stand Alone Forms: Patient Portal Discharge page Care Plan Goals: Continue oral antibiotics to treat complicated UTI and bacteremia Health Concerns: Pyelonephritis Sepsis EColi/ESBL bacteremia Plan of Treatment: Complicated UTI (pyelonephritis) with sepsis -CT scan of the abdomen/pelvis showed probable ascending urinary infection called pyelonephritis -your treated with 3 doses IV ceftriaxone. You should continue oral Levaquin as prescribed for an additional 2 weeks. Do not skip any doses or stop taking the medication early. Please be advised you should take this medication with food any yogurt on a daily basis for probiotics. As discussed, this medication also carries a black box warning including tendinopathy or tendon rupture. -on admission, near also noted to be septic, which is an immune response to significant infection. After several doses of antibiotics, sepsis resolved -drink plenty of fluids and also take cranberry supplement -follow-up soon with PCP E coli bacteremia -when your initially seen in the ED, blood cultures were drawn and ended up resulting positive for E coli and ESBL which is a resistant bacteria that will only respond to certain antibiotics -your repeat blood cultures after several days of antibiotics were negative -you need to complete an additional 14 days of Levaquin as discussed to ensure full resolution of the E coli blood infection. Vulvovaginal candidiasis- secondary to antibiotic use -your given dose of Diflucan 150 mg on 02/07 at 20:00. You can repeat this dose once if needed tomorrow at 20:00 if symptoms persist -I recommend taking antibiotics with food and eating yogurt daily for probiotics Assessment: As above Discharge Date/Time: 02/09/22 13:19
== END 2022-02-09 13:19 | disposition home or self-care (01) | DRG 720 ==
LOC: HO.ED 16:12 → HO.EDOVER 16:54 → HO.S3 17:58 → HO.EDOVER 02-07 11:11 → HO.S3 02-07 11:11
PROVIDERS: Physician Assistant Medical; Admitting Provider Physician Assistant; Emergency Provider Student in an Organized Health Care Education/Training Program; Visit Provider Physician Assistant
DX: A41.9 Sepsis, unspecified organism (principal); E87.6 Hypokalemia; B96.20 Unspecified Escherichia coli [E. coli] as the cause of diseases classified elsewhere; Z23 Encounter for immunization; N10 Acute pyelonephritis; Z16.12 Extended spectrum beta lactamase (ESBL) resistance; Z20.822 Contact with and (suspected) exposure to COVID-19; Z79.899 Other long term (current) drug therapy
CPT/HCPCS: 36415; 76775; 80048; 80053; 81001; 83605; 83735; 85025; 87040; 87635; 90686; 99285; J0696; J1170; J1650; J1885; J2405

== ENCOUNTER 2022-03-04 10:27 | Emergency (ER) | payer OTHER, SELFPAY ==
--- NOTE | ~2022-03-04 | CT_ITS ---
CT SOFT TISSUE NECK WITH CONTRAST CLINICAL INFORMATION: Right lower dental pain and swelling. Extraction. Question abscess. COMPARISON: Facial CT 06/02/2018. TECHNIQUE: Following the intravenous administration of 60 mL of Omnipaque 350 intravenous contrast, helical imaging was performed in the axial plane with generation of coronal and sagittal reformatted images. This CT examination was performed using dose optimization techniques as appropriate, variously including the following: *Automated exposure control *Adjustment of mA and/or kV according to patient size (this includes techniques or standardized protocols for targeted exams where dose is matched to indication/reason for exam; i.e. extremities or head) *Use of iterative reconstruction technique FINDINGS: There are right third mandibular molar, right third maxillary molar, and left third maxillary molar extraction pockets. There is focal soft tissue swelling adjacent to the right third mandibular molar extraction socket contiguous with inflammatory change extending inferiorly into the right submental soft tissues and the soft tissues surrounding the right submandibular gland compatible with cellulitis. There is myositis of the right platysma muscle. No peripherally enhancing fluid collection to suggest abscess is identified on this study. The fat planes within the floor of mouth are maintained. The venous system remains patent. The thyroid gland, the submandibular glands, and the parotid glands are unremarkable. There is accessory parotid tissue superficial to the masseter muscles bilaterally. Cervical arterial vasculature remains patent. The partially imaged intracranial compartment is unremarkable. Reversal of the paranasal sinuses remain clear. There is leftward deviation of the nasal septum. Mastoid air cells and middle ear cavities are clear. The TMJs are unremarkable. The cervical lordosis. There are no acute nor suspicious osseous findings. CT/CT soft tissue neck w IV con IMPRESSION: There is focal soft tissue swelling adjacent to the right third mandibular molar extraction socket contiguous with inflammatory change extending inferiorly into the right submental soft tissues and the soft tissues surrounding the right submandibular gland compatible with cellulitis. There is myositis of the right platysma muscle. No peripherally enhancing fluid collection to suggest abscess is identified.
[2022-03-04 10:31] VITALS: BP 128/85; PULSE 76; RESP 18; TEMP 36.6; O2SAT 98; BMI 43.0
[2022-03-04 12:18] VITALS: BP 117/78; PULSE 93; RESP 18; O2SAT 98
[2022-03-04] MEDS: 0.9 % Sodium Chloride 1,000 ML 999 ML IVCONT (13:00)
[2022-03-04 13:05] LABS: MANUAL DIFF FLAG NO
[2022-03-04 13:08] LABS: Basophils Absolute Auto 0.1 X10*3/uL (0.0-0.2); Basophils Percent Auto 0.4 % (0-2); Eosinophils Absolute Auto 0.1 X10*3/uL (0.0-0.4); Eosinophils Percent Auto 0.6 % (0-4); Hematocrit 42.8 % (37.0-47.0); Hemoglobin 13.9 g/dl (12.0-16.0); Imm Gran Abs Auto 0.07 X10*3/uL (0.00-0.03); Imm Gran Pct Auto 0.5 % (0.0-0.4); Lymphocytes Absolute Auto 3.2 X10*3/uL (1.2-4.9); Lymphocytes Percent Auto 20.4 % (20-40); Mean Corpuscular HGB Conc 32.5 g/dl (31.0-35.0); Mean Corpuscular Hemoglobin 27.4 pg (27.0-33.0); Mean Corpuscular Volume 84.4 fL (80.0-98.0); Mean Platelet Volume 10.2 fL (9.4-12.3); Monocytes Absolute Auto 0.7 X10*3/uL (0.1-1.2); Monocytes Percent Auto 4.7 % (2-11); Neutrophils Absolute Auto 11.4 x10*3/uL (2.0-8.3); Neutrophils Percent Auto 73.4 % (45-73); Platelet Count 320 X10*3/uL (160-400); Red Blood Count 5.07 X10*6/uL (4.20-5.50); Red Cell Distribution Width 13.3 % (11.0-16.0); White Blood Count 15.5 X10*3/uL (4.8-10.8)
[2022-03-04] MEDS: Morphine Sulfate 4 MG/ML CARTRIDGE IVPUSH (13:08)
[2022-03-04] MEDS: Lidocaine HCl 4 % Laryng-O-Jet 4 ML 1 APPL TOPICAL (13:09)
[2022-03-04] MEDS: ondansetron HCL 4 MG/2 ML VIAL IVPUSH (13:09)
[2022-03-04 13:10] LABS: Appearance Urine Clear; Color Urine Dark Yellow; Glucose Urine UA Negative (Negative); Leukocyte Esterase Urine Negative (Negative); Nitrite Urine Negative (Negative); UMIC TRIGGER UACC YES; Urine Blood Small (1+) (Negative); Urine Ketones >=160 mg/dL (Negative); Urine Protein 100 (2+) mg/dL (Neg-Trace)
[2022-03-04 13:20] LABS: INTERNATIONAL NORM RATIO 1.2 (0.9-1.1); Prothrombin Time 13.9 SEC (10.0-13.1)
[2022-03-04 13:28] LABS: Bacteria Urine None Seen (None Seen); Hyaline Casts Urine 0-2 /LPF (0-2); WBC Urine 0-5 /HPF (0-5)
[2022-03-04 13:29] LABS: Specific Gravity - Urine >= 1.030 (1.005-1.025)
--- NOTE | 2022-03-04 13:35 | ED.NAVMDI ---
HPI - Nausea/Vomiting/Diarrhea General Chief complaint: Nausea/Vomiting/Diarrhea Stated complaint: oral pain, oral surgery 3 days ago Time Seen by Provider: 03/04/22 12:40 Source: patient Mode of arrival: ambulatory Limitations: no limitations History of Present Illness HPI Narrative: 26yoF presenting to the ED c c/o right dental pain/facial swelling after she had her right with some to extracted 3 days ago and has been unable to eat and drink. She has been vomiting everything she intakes. She went back to her dentist and they gave her 400 mg of Motrin and regular Tylenol along with antibiotics although patient is Related Data Home Medications Medication Instructions Recorded Confirmed acetaminophen 325 mg tablet 650 mg PO QID PRN Pain 02/06/22 02/06/22 Previous Rx's Medication Instructions Recorded albuterol sulfate 90 mcg/actuation 2 puff inhalation Q4-6H PRN 12/25/21 aerosol inhaler (ProAir HFA) shortness of breath or wheezing #8.5 grams phenazopyridine 200 mg tablet 200 mg PO TID 2 days #6 tabs 02/05/22 (Pyridium) fluconazole 150 mg tablet 150 mg PO Q3D 2 doses #2 tabs 02/09/22 (Diflucan) levofloxacin 750 mg tablet 750 mg PO DAILY #14 tabs 02/09/22 Allergies Allergy/AdvReac Type Severity Reaction Status Date / Time No Known Allergies Allergy Unverified 11/01/19 19:29 [No Known Allergies*] [facility] Past Medical History Medical History (Updated 02/09/22 @ 17:32 by CHRIS Mobley) E coli bacteremia History of ESBL E. coli infection No pertinent past medical history Family History Family History Mother Diabetes Hypertension Maternal Grandfather Diabetes Hypertension Maternal Grandmother Diabetes Hypertension Colon cancer Social History Social History Alcohol intake: unknown Patient Tobacco Use Status: Never used Tobacco Smoked in Last 30 Days: Yes Use of substances other than those prescribed or required for medical reasons: Yes Substance Use Type: Marijuana Advance Directives: No service: No Current occupational status: unemployed Physical Exam Vital Signs: Vital Signs: Last Vital Signs Temp 97.9 F 03/04/22 13:50 Pulse 66 03/04/22 13:50 Resp 16 03/04/22 13:50 BP 120/84 03/04/22 13:50 Pulse Ox 100 03/04/22 13:50 O2 Del Method 03/04/22 13:50 BMI result Body Mass Index 43.0 Medications Administered Discontinued Medications Generic Name Dose Route Start Last Admin Trade Name [place] PRN Reason Stop Dose Admin Sodium Chloride 1,000 mls @ 999 mls/hr 03/04/22 12:45 03/04/22 13:00 Ns IVCONT 03/04/22 13:45 999 mls/hr .Q1H1M JENIFER Administration Lidocaine HCl 1 appl 03/04/22 12:46 03/04/22 13:09 Lidocaine Hcl 4 % [id number] 4 Ml TOPICAL 03/04/22 12:47 1 appl ONCE ONE Administration Morphine Sulfate 4 mg 03/04/22 12:46 03/04/22 13:08 Morphine Sulfate 4 Mg/Ml Cartridge IVPUSH 03/04/22 12:47 4 mg ONCE ONE Administration Protocol Ondansetron HCl 4 mg 03/04/22 12:46 03/04/22 13:09 Ondansetron Hcl 4 Mg/2 Ml Vial IVPUSH 03/04/22 12:47 4 mg ONCE ONE Administration Medical Decision Making Lab Data 03/04/22 12:57 03/04/22 12:57 Labs: Lab Results 03/04/22 03/04/22 03/04/22 Range/Units 12:52 12:57 12:57 WBC 15.5 H (4.8-10.8) X10*3/uL RBC 5.07 (4.20-5.50) X10*6/uL Hgb 13.9 (12.0-16.0) g/dl Hct 42.8 (37.0-47.0) % MCV 84.4 (80.0-98.0) fL MCH 27.4 (27.0-33.0) pg MCHC 32.5 (31.0-35.0) g/dl RDW 13.3 (11.0-16.0) % Plt Count 320 D (160-400) X10*3/uL MPV 10.2 (9.4-12.3) fL Immature Gran % (Auto) 0.5 H (0.0-0.4) % Neut % (Auto) 73.4 H (45-73) % Lymph % (Auto) 20.4 (20-40) % [place] % (Auto) 4.7 (2-11) % Eos % (Auto) 0.6 (0-4) % Baso % (Auto) 0.4 (0-2) % Lymph # (Auto) 3.2 (1.2-4.9) X10*3/uL [place] # (Auto) 0.7 (0.1-1.2) X10*3/uL Eos # (Auto) 0.1 (0.0-0.4) X10*3/uL Baso # (Auto) 0.1 (0.0-0.2) X10*3/uL Abs Immat Gran (auto) 0.07 H (0.00-0.03) X10*3/uL Absolute Neuts (auto) 11.4 H (2.0-8.3) x10*3/uL Absolute Nucleated RBC 0.000 (0.0-0.012) X10*3/uL Nucleated RBC % (auto) 0.0 (0.0-0.2) /100WBC PT 13.9 H (10.0-13.1) SEC INR 1.2 H (0.9-1.1) Sodium (135-145) mmol/L Potassium (3.3-5.1) mmol/L Chloride (96-108) mmol/L Carbon Dioxide (22-29) mmol/L Anion Gap (12-20) BUN (9-16) mg/dL Creatinine (0.5-1.4) mg/dL Estim Creat Clear Calc Estimated GFR Random Glucose (60-115) mg/dL Calcium (8.4-10.2) mg/dL Magnesium (1.6-2.6) mg/dL Total Bilirubin (0.0-1.0) mg/dL AST (5-31) U/L ALT (0-31) U/L Alkaline Phosphatase (39-117) U/L Total Protein (6.5-8.0) g/dL Albumin (3.5-5.0) g/dL Lipase (8-78) U/L Beta HCG, Quant mIU/mL Urine Color Dark Yellow Urine Appearance Clear Urine pH 6.0 (5.0-9.0) Ur Specific [place] >= 1.030 H (1.005-1.025) Urine Protein 100 (2+) H (Neg-Trace) mg/dL Urine Glucose (UA) Negative (Negative) mg/dL Urine Ketones >=160 (Negative) mg/dL Urine Blood Small (1+) H (Negative) Urine Nitrite Negative (Negative) Ur Leukocyte Esterase Negative (Negative) Urine RBC 11-20 H (0-2) /HPF Urine WBC 0-5 (0-5) /HPF Ur Squamous Epith Cells 3-5 (0-2) /HPF Urine Bacteria None Seen (None Seen) Hyaline Casts 0-2 (0-2) /LPF 03/04/22 03/04/22 Range/Units 13:23 13:23 WBC (4.8-10.8) X10*3/uL RBC (4.20-5.50) X10*6/uL Hgb (12.0-16.0) g/dl Hct (37.0-47.0) % MCV (80.0-98.0) fL MCH (27.0-33.0) pg MCHC (31.0-35.0) g/dl RDW (11.0-16.0) % Plt Count (160-400) X10*3/uL MPV (9.4-12.3) fL Immature Gran % (Auto) (0.0-0.4) % Neut % (Auto) (45-73) % Lymph % (Auto) (20-40) % [place] % (Auto) (2-11) % Eos % (Auto) (0-4) % Baso % (Auto) (0-2) % Lymph # (Auto) (1.2-4.9) X10*3/uL [place] # (Auto) (0.1-1.2) X10*3/uL Eos # (Auto) (0.0-0.4) X10*3/uL Baso # (Auto) (0.0-0.2) X10*3/uL Abs Immat Gran (auto) (0.00-0.03) X10*3/uL Absolute Neuts (auto) (2.0-8.3) x10*3/uL Absolute Nucleated RBC (0.0-0.012) X10*3/uL Nucleated RBC % (auto) (0.0-0.2) /100WBC PT (10.0-13.1) SEC INR (0.9-1.1) Sodium 142 (135-145) mmol/L Potassium 3.7 (3.3-5.1) mmol/L Chloride 108 (96-108) mmol/L Carbon Dioxide 22 (22-29) mmol/L Anion Gap 16 (12-20) BUN 15 (9-16) mg/dL Creatinine 0.76 (0.5-1.4) mg/dL Estim Creat Clear Calc 156.5 Estimated GFR > 60 Random Glucose 90 (60-115) mg/dL Calcium 9.7 D (8.4-10.2) mg/dL Magnesium 1.8 (1.6-2.6) mg/dL Total Bilirubin 0.5 (0.0-1.0) mg/dL AST 14 (5-31) U/L ALT 13 (0-31) U/L Alkaline Phosphatase 81 (39-117) U/L Total Protein 7.5 (6.5-8.0) g/dL Albumin 4.5 (3.5-5.0) g/dL Lipase 12 (8-78) U/L Beta HCG, Quant < 2 mIU/mL Urine Color Urine Appearance Urine pH (5.0-9.0) Ur Specific [place] (1.005-1.025) Urine Protein (Neg-Trace) mg/dL Urine Glucose (UA) (Negative) mg/dL Urine Ketones (Negative) mg/dL Urine Blood (Negative) Urine Nitrite (Negative) Ur Leukocyte Esterase (Negative) Urine RBC (0-2) /HPF Urine WBC (0-5) /HPF Ur Squamous Epith Cells (0-2) /HPF Urine Bacteria (None Seen) Hyaline Casts (0-2) /LPF Discharge Plan Discharge Prescriptions: No Action albuterol sulfate [ProAir HFA] 90 mcg/actuation HFA aerosol inhaler 2 puff inhalation Q4-6H PRN (Reason: shortness of breath or wheezing) Qty: 8.5 0RF phenazopyridine [Pyridium] 200 mg tablet 200 mg PO TID 2 Days Qty: 6 0RF acetaminophen 325 mg Tablet 650 mg PO QID PRN (Reason: Pain) fluconazole [Diflucan] 150 mg tablet 150 mg PO Q3D Qty: 2 0RF Rx Instructions: Take for vulvovaginal irritation. May repeat dose once after 72 hours if no improvement levofloxacin 750 mg tablet 750 mg PO DAILY Qty: 14 0RF
[2022-03-04 13:50] VITALS: BP 120/84; PULSE 66; RESP 16; TEMP 36.6; O2SAT 100
[2022-03-04 14:01] LABS: Alanine Aminotransferase 13 U/L (0-31); Albumin Level 4.5 g/dL (3.5-5.0); Alkaline Phosphatase 81 U/L (39-117); Anion Gap 16 (12-20); Aspartate Amino Transferase 14 U/L (5-31); Bilirubin Total 0.5 mg/dL (0.0-1.0); Blood Urea Nitrogen 15 mg/dL (9-16); Calcium 9.7 mg/dL (8.4-10.2); Carbon Dioxide 22 mmol/L (22-29); Chloride 108 mmol/L (96-108); Creatinine Clr Calc Pharmacy 156.5; Estimated Glomerular Filt Rate > 60; Glucose Random 90 mg/dL (60-115); Lipase 12 U/L (8-78); Magnesium 1.8 mg/dL (1.6-2.6); Potassium 3.7 mmol/L (3.3-5.1); Sodium 142 mmol/L (135-145); Total Protein 7.5 g/dL (6.5-8.0)
[2022-03-04 14:37] LABS: HCG Quantitative < 2 mIU/mL
[2022-03-04 14:52] VITALS: BP 130/74; PULSE 80; RESP 16; TEMP 36.6; O2SAT 98
[2022-03-04] MEDS: iohexoL 350 MG/ML 100 ML INFUS..BTL IV (14:59)
--- NOTE | 2022-03-04 15:04 | ED_ITS ---
HPI - Dental/Oral General Chief complaint: Nausea/Vomiting/Diarrhea Stated complaint: oral pain, oral surgery 3 days ago Time Seen by Provider: 03/04/22 12:40 Source: patient and family (Mother at bedside) Mode of arrival: ambulatory Limitations: no limitations History of Present Illness HPI Narrative: 26yoF presenting to the ED c c/o right dental pain/facial swelling after she had her right with some to extracted 3 days ago and has been unable to eat and drink. She has been vomiting everything she intakes. She went back to her dentist and they gave her 400 mg of Motrin and regular Tylenol along with antibi otics although patient is unable to keep any of this medication down. They told her if she had any worsening pain or symptoms to come to the ER therefore she came here for further evaluation treatment. She denies any fevers, sore throat, trouble swallowing or breathing, change in her voice or any other symptoms complaints or concerns at this time. MD Complaint: tooth pain (Where they extracted her wisdom teeth and upper and right side of the mouth) Onset (ago): day(s) (3) Duration: worsening Severity: severe Severity scale (1-10): >10 Relieving factors: nothing Exacerbating factors: nothing Context: other (See above) Associated symptoms: other (Right facial swelling) Treatment prior to arrival: other (She has been taking Motrin, Tylenol and antibiotics and no symptomatic relief) Related Data Home Medications Medication Instructions Recorded Confirmed acetaminophen 325 mg tablet 650 mg PO QID PRN Pain 02/06/22 02/06/22 Previous Rx's Medication Instructions Recorded albuterol sulfate 90 mcg/actuation 2 puff inhalation Q4-6H PRN 12/25/21 aerosol inhaler (ProAir HFA) shortness of breath or wheezing #8.5 grams phenazopyridine 200 mg tablet 200 mg PO TID 2 days #6 tabs 02/05/22 (Pyridium) fluconazole 150 mg tablet 150 mg PO Q3D 2 doses #2 tabs 02/09/22 (Diflucan) levofloxacin 750 mg tablet 750 mg PO DAILY #14 tabs 02/09/22 ibuprofen 800 mg tablet 800 mg PO Q8H PRN pain #14 tabs 03/04/22 ondansetron 4 mg disintegrating 4 mg PO Q8H #14 tabs 03/04/22 tablet oxycodone 5 mg tablet 5 mg PO Q6H PRN pain #14 tabs 03/04/22 Allergies Allergy/AdvReac Type Severity Reaction Status Date / Time No Known Allergies Allergy Unverified 11/01/19 19:29 [No Known Allergies*] Review of Systems Review of Systems: Constitutional : No Fever, No Chills, No changes in PO intake, No difficulty speaking, no recent dental procedure, no heat or cold intolerance while eating, no recent face trauma, ENT/Mouth : No swallowing difficulty, no change in voice, + dental pain, + jaw pain, + facial swelling, no drooling, no trismus, no bleeding, no throat swelling, no lacerations, no tongue swelling, gum swelling, Eyes: No Eye Pain, No periorbital Swelling Cardiovascular : No Chest Pain, No SOB Respiratory : No Cough, No Sputum, No Wheezing, No Smoke Exposure, No Dyspnea Gastrointestinal : No Nausea, No Vomiting, No Diarrhea Genitourinary : No Dysuria Musculoskeletal : No Myalgias Skin : No rash, no facial swelling or redness, Neuro : No Weakness, No Numbness, No Headache Yes all other systems are reviewed and are negative [facility] Past Medical History Attestation statement: The following information was validated with the patient. Source: old records reviewed, obtained from family and nursing notes reviewed Medical History E coli bacteremia History of ESBL E. coli infection No pertinent past medical history Family History Family History Mother Diabetes Hypertension Maternal Grandfather Diabetes Hypertension Maternal Grandmother Diabetes Hypertension Colon cancer Social History Social History Alcohol intake: unknown Patient Tobacco Use Status: Never used Tobacco Smoked in Last 30 Days: Yes Use of substances other than those prescribed or required for medical reasons: Yes Substance Use Type: Marijuana Advance Directives: No service: No Current occupational status: unemployed Physical Exam Vital Signs: Vital Signs: Last Vital Signs Temp 97.8 F 03/04/22 14:52 Pulse 80 03/04/22 14:52 Resp 16 03/04/22 14:52 BP 130/74 03/04/22 14:52 Pulse Ox 98 03/04/22 14:52 O2 Del Method 03/04/22 14:52 BMI result Body Mass Index 43.0 vital signs have been reviewed as normal and appeared to be correct. Blood pressure normal. Heart rate normal. Respiration rate normal. Temperature normal. Oxygen saturation normal. Appearance: Alert. Oriented X3. No acute distress. Head: Normal external exam. Normocephalic. Atraumatic. Eyes: PERRLA. EOMI. Conjunctiva and sclera normal. Eyelids normal. ENT: EAC normal. TM's Normal. Pharynx normal. Uvula midline. Moist mucous membranes. No trismus noted. No drooling noted. No muffled voice noted. Dentition: Patient has sutures in place to right upper and lower wisdom to location with a were extracted. No obvious gingival swelling. Or purulent drainage noted. Patient does have some right facial swelling. No erythema to the face. Gingival within normal limits. No fluctuance. Not consistent with peritonsillar abscess. Not consistent with dental abscess. No salivary duct obstruction noted. Patient tolerating secretions well. No stridor is noted. Neck: Normal inspection. Neck supple. FROM. No adenopathy. Thyroid Normal. No meningeal signs. No neck mass noted. Trachea midline. CVS: Normal heart rate and rhythm. Heart sound normal. No murmurs noted. Pulses normal throughout. Respiratory: No respiratory distress. Painless inspiration. Breath sounds normal. No wheezes/rales/rhonchi noted. Chest nontender. No accessory muscle usage noted or decreased air movement noted. Back: Full range of motion noted. Skin: Skin warm and dry. Normal skin color. Normal skin turgor. No rashes/lesions/lacerations noted. Extremities:Extremities exhibit normal range of motion. Extremities nontender. Neuro: Oriented X 3. No motor deficit. No sensory deficit. Reflexes normal. Course Course Course Narrative: 12:40pm - 26yoF presenting to the ED c c/o right dental pain/facial swelling after she had her right with some to extracted 3 days ago and has been unable to eat and drink. She has been vomiting everything she intakes. She went back to her dentist and they gave her 400 mg of Motrin and regular Tylenol along with antibiotics although patient is unable to keep any of this medication down. They told her if she had any worsening pain or symptoms to come to the ER therefore she came here for further evaluation treatment. She denies any fevers, sore throat, trouble swallowing or breathing, change in her voice or any other symptoms complaints or concerns at this time. Plan: labs, CT scan of neck and provide symptomatic treatment with IV morphine and Zofran and re-evaluate. Along with fluids. Reevaluation(s) Reevaluation #1: Labs reviewed - WBC at this time 15,000 otherwise all other labs are within normal limits. - UA revealed protein along with small blood otherwise no evidence of UTI. Patient negative for by blood CT scan returned at this time and revealed cellulitis to the face otherwise no abscess or no other acute processes noted. Therefore at this time will obtain blood cultures and lactic patient will be given fluids along with IV Zosyn. Patient would like to go home she does not want to be admitted at this time. Therefore at this time will DC home after she received antibiotics with symptomatic treatment instructions return if any new or worsening symptoms to follow up with dentist/PCP. Patient understands and agrees with this plan mother and family at bedside. Time: 16:00 Medications Administered Discontinued Medications Generic Name Dose Route Start Last Admin Trade Name Freq PRN Reason Stop Dose Admin Sodium Chloride 1,000 mls @ 999 mls/hr 03/04/22 12:45 03/04/22 13:00 Ns IVCONT 03/04/22 13:45 999 mls/hr .Q1H1M JENIFER Administration Iohexol 100 ml 03/04/22 14:58 03/04/22 14:59 Iohexol 350 Mg/Ml 100 Ml Infus..Btl IV 03/04/22 14:59 60 ml ONCE ONE Administration Ketorolac Tromethamine 30 mg 03/04/22 15:03 03/04/22 15:10 Ketorolac Tromethamine 30 Mg/Ml Vial IVPUSH 03/04/22 15:04 30 mg ONCE ONE Administration Lidocaine HCl 1 appl 03/04/22 12:46 03/04/22 13:09 Lidocaine Hcl 4 % [id number] 4 Ml TOPICAL 03/04/22 12:47 1 appl ONCE ONE Administration Morphine Sulfate 4 mg 03/04/22 12:46 03/04/22 13:08 Morphine Sulfate 4 Mg/Ml Cartridge IVPUSH 03/04/22 12:47 4 mg ONCE ONE Administration Protocol Ondansetron HCl 4 mg 03/04/22 12:46 03/04/22 13:09 Ondansetron Hcl 4 Mg/2 Ml Vial IVPUSH 03/04/22 12:47 4 mg ONCE ONE Administration Oxycodone HCl 10 mg 03/04/22 15:03 03/04/22 15:10 Oxycodone Hcl Immed Release 5 Mg Tablet PO 03/04/22 15:04 10 mg ONCE ONE Administration Medical Decision Making Lab Data [facility] Lab Attestation statement: I reviewed the patient's lab results. 03/04/22 12:57 03/04/22 13:23 Labs: Lab Results 03/04/22 03/04/22 03/04/22 Range/Units 12:52 12:57 12:57 WBC 15.5 H (4.8-10.8) X10*3/uL RBC 5.07 (4.20-5.50) X10*6/uL Hgb 13.9 (12.0-16.0) g/dl Hct 42.8 (37.0-47.0) % MCV 84.4 (80.0-98.0) fL MCH 27.4 (27.0-33.0) pg MCHC 32.5 (31.0-35.0) g/dl RDW 13.3 (11.0-16.0) % Plt Count 320 D (160-400) X10*3/uL MPV 10.2 (9.4-12.3) fL Immature Gran % (Auto) 0.5 H (0.0-0.4) % Neut % (Auto) 73.4 H (45-73) % Lymph % (Auto) 20.4 (20-40) % [place] % (Auto) 4.7 (2-11) % Eos % (Auto) 0.6 (0-4) % Baso % (Auto) 0.4 (0-2) % Lymph # (Auto) 3.2 (1.2-4.9) X10*3/uL [place] # (Auto) 0.7 (0.1-1.2) X10*3/uL Eos # (Auto) 0.1 (0.0-0.4) X10*3/uL Baso # (Auto) 0.1 (0.0-0.2) X10*3/uL Abs Immat Gran (auto) 0.07 H (0.00-0.03) X10*3/uL Absolute Neuts (auto) 11.4 H (2.0-8.3) x10*3/uL Absolute Nucleated RBC 0.000 (0.0-0.012) X10*3/uL Nucleated RBC % (auto) 0.0 (0.0-0.2) /100WBC PT 13.9 H (10.0-13.1) SEC INR 1.2 H (0.9-1.1) Sodium (135-145) mmol/L Potassium (3.3-5.1) mmol/L Chloride (96-108) mmol/L Carbon Dioxide (22-29) mmol/L Anion Gap (12-20) BUN (9-16) mg/dL Creatinine (0.5-1.4) mg/dL Estim Creat Clear Calc Estimated GFR Random Glucose (60-115) mg/dL Calcium (8.4-10.2) mg/dL Magnesium (1.6-2.6) mg/dL Total Bilirubin (0.0-1.0) mg/dL AST (5-31) U/L ALT (0-31) U/L Alkaline Phosphatase (39-117) U/L Total Protein (6.5-8.0) g/dL Albumin (3.5-5.0) g/dL Lipase (8-78) U/L Beta HCG, Quant mIU/mL Urine Color Dark Yellow Urine Appearance Clear Urine pH 6.0 (5.0-9.0) Ur Specific [place] >= 1.030 H (1.005-1.025) Urine Protein 100 (2+) H (Neg-Trace) mg/dL Urine Glucose (UA) Negative (Negative) mg/dL Urine Ketones >=160 (Negative) mg/dL Urine Blood Small (1+) H (Negative) Urine Nitrite Negative (Negative) Ur Leukocyte Esterase Negative (Negative) Urine RBC 11-20 H (0-2) /HPF Urine WBC 0-5 (0-5) /HPF Ur Squamous Epith Cells 3-5 (0-2) /HPF Urine Bacteria None Seen (None Seen) Hyaline Casts 0-2 (0-2) /LPF 03/04/22 03/04/22 Range/Units 13:23 13:23 WBC (4.8-10.8) X10*3/uL RBC (4.20-5.50) X10*6/uL Hgb (12.0-16.0) g/dl Hct (37.0-47.0) % MCV (80.0-98.0) fL MCH (27.0-33.0) pg MCHC (31.0-35.0) g/dl RDW (11.0-16.0) % Plt Count (160-400) X10*3/uL MPV (9.4-12.3) fL Immature Gran % (Auto) (0.0-0.4) % Neut % (Auto) (45-73) % Lymph % (Auto) (20-40) % [place] % (Auto) (2-11) % Eos % (Auto) (0-4) % Baso % (Auto) (0-2) % Lymph # (Auto) (1.2-4.9) X10*3/uL [place] # (Auto) (0.1-1.2) X10*3/uL Eos # (Auto) (0.0-0.4) X10*3/uL Baso # (Auto) (0.0-0.2) X10*3/uL Abs Immat Gran (auto) (0.00-0.03) X10*3/uL Absolute Neuts (auto) (2.0-8.3) x10*3/uL Absolute Nucleated RBC (0.0-0.012) X10*3/uL Nucleated RBC % (auto) (0.0-0.2) /100WBC PT (10.0-13.1) SEC INR (0.9-1.1) Sodium 142 (135-145) mmol/L Potassium 3.7 (3.3-5.1) mmol/L Chloride 108 (96-108) mmol/L Carbon Dioxide 22 (22-29) mmol/L Anion Gap 16 (12-20) BUN 15 (9-16) mg/dL Creatinine 0.76 (0.5-1.4) mg/dL Estim Creat Clear Calc 156.5 Estimated GFR > 60 Random Glucose 90 (60-115) mg/dL Calcium 9.7 D (8.4-10.2) mg/dL Magnesium 1.8 (1.6-2.6) mg/dL Total Bilirubin 0.5 (0.0-1.0) mg/dL AST 14 (5-31) U/L ALT 13 (0-31) U/L Alkaline Phosphatase 81 (39-117) U/L Total Protein 7.5 (6.5-8.0) g/dL Albumin 4.5 (3.5-5.0) g/dL Lipase 12 (8-78) U/L Beta HCG, Quant < 2 mIU/mL Urine Color Urine Appearance Urine pH (5.0-9.0) Ur Specific [place] (1.005-1.025) Urine Protein (Neg-Trace) mg/dL Urine Glucose (UA) (Negative) mg/dL Urine Ketones (Negative) mg/dL Urine Blood (Negative) Urine Nitrite (Negative) Ur Leukocyte Esterase (Negative) Urine RBC (0-2) /HPF Urine WBC (0-5) /HPF Ur Squamous Epith Cells (0-2) /HPF Urine Bacteria (None Seen) Hyaline Casts (0-2) /LPF Independent Interpretation I performed an independent interpretation of an: CT Scan Interpretation: FINDINGS: There are right third mandibular molar, right third maxillary molar, and left third maxillary molar extraction pockets. There is focal soft tissue swelling adjacent to the right third mandibular molar extraction socket contiguous with inflammatory change extending inferiorly into the right submental soft tissues and the soft tissues surrounding the right submandibular gland compatible with cellulitis. There is myositis of the right platysma muscle. No peripherally enhancing fluid collection to suggest abscess is identified on this study. The fat planes within the floor of mouth are maintained. The venous system remains patent. The thyroid gland, the submandibular glands, and the parotid glands are unremarkable. There is accessory parotid tissue superficial to the masseter muscles bilaterally. Cervical arterial vasculature remains patent. The partially imaged intracranial compartment is unremarkable. Reversal of the paranasal sinuses remain clear. There is leftward deviation of the nasal septum. Mastoid air cells and middle ear cavities are clear. The TMJs are unremarkable. The cervical lordosis. There are no acute nor suspicious osseous findings. CT/CT soft tissue neck w IV con IMPRESSION: There is focal soft tissue swelling adjacent to the right third mandibular molar extraction socket contiguous with inflammatory change extending inferiorly into the right submental soft tissues and the soft tissues surrounding the right submandibular gland compatible with cellulitis. There is myositis of the right platysma muscle. No peripherally enhancing fluid collection to suggest abscess is identified. Radiology Impression Discussion of test interpretation with radiology: I have reviewed the radiologist's reading. Independent Historian Clinical information obtained from an independent historian. History obtained from or confirmed by: Parent and Friend Prescription Management I considered prescription management with: Pain Medication and Antibiotic Critical Care Time Critical Care Time Critical Care Time: Yes Total Critical Care Time: 60 Attestation: I personally attest to this time spent taking care of the patient Discharge Plan Discharge Clinical Impression: Pain, dental, Cellulitis Patient Disposition: Home, Self-Care Instructions: Toothache (ED) Prescriptions: New ondansetron 4 mg tablet,disintegrating 4 mg PO Q8H Qty: 14 0RF ibuprofen 800 mg tablet 800 mg PO Q8H PRN (Reason: pain) Qty: 14 0RF oxycodone 5 mg tablet 5 mg PO Q6H PRN (Reason: pain) Qty: 14 0RF Rx Instructions: Partial Fill upon patient request. No Action albuterol sulfate [ProAir HFA] 90 mcg/actuation HFA aerosol inhaler 2 puff inhalation Q4-6H PRN (Reason: shortness of breath or wheezing) Qty: 8.5 0RF phenazopyridine [Pyridium] 200 mg tablet 200 mg PO TID 2 Days Qty: 6 0RF acetaminophen 325 mg Tablet 650 mg PO QID PRN (Reason: Pain) fluconazole [Diflucan] 150 mg tablet 150 mg PO Q3D Qty: 2 0RF Rx Instructions: Take for vulvovaginal irritation. May repeat dose once after 72 hours if no improvement levofloxacin 750 mg tablet 750 mg PO DAILY Qty: 14 0RF Referrals: Physician,None [Primary Care Provider] - (Follow-up with her dentist within the next 2 days) Stand Alone Forms: Work/School Release
[2022-03-04] MEDS: Ketorolac Tromethamine 30 MG/ML VIAL IVPUSH (15:10)
[2022-03-04] MEDS: oxyCODONE HCl Immed Release 5 MG TABLET 10 MG PO (15:10)
[2022-03-04] MEDS: Piperacillin Sodium/Tazobactam 2.25 GM in 0.9 % Sodium Chloride 50 ML IV (17:15)
[2022-03-04 17:19] VITALS: BP 113/69; PULSE 67; O2SAT 98
[2022-03-04 17:19] LABS: Lactic Acid 0.9 mmol/L (0.5-2.0)
== END 2022-03-04 17:33 | disposition home or self-care (01) ==
PROVIDERS: Physician Assistant Medical; Emergency Provider Emergency Medicine Emergency Medical Services
DX: K12.2 Cellulitis and abscess of mouth (principal); R22.1 Localized swelling, mass and lump, neck; K08.89 Other specified disorders of teeth and supporting structures; Z79.899 Other long term (current) drug therapy
CPT/HCPCS: 36415; 70491; 80053; 81001; 83605; 83690; 83735; 84702; 85025; 85610; 87040; 96361; 96374; 96375; 99285; J1885; J2270; J2405; J2543; Q9967

== ENCOUNTER 2022-03-31 21:27 | Emergency (ER) | payer OTHER, SELFPAY ==
[2022-03-31 21:35] VITALS: BP 139/77; PULSE 103; RESP 20; TEMP 36.9; O2SAT 95; BMI 41.5
[2022-03-31 22:23] LABS: IDNOW Serial# 6674DD1D; Strep A Nucleic Acid Negative (Negative)
[2022-03-31 22:30] LABS: COVID-19 Test Negative (Negative); IDNOW Serial# 16C4AD1C
[2022-03-31 22:42] LABS: IDNOW Serial# BCCEAD1C; Influenza A Negative (Negative); Influenza B2 Negative (Negative)
--- NOTE | 2022-04-01 01:39 | ED_ITS ---
HPI - General Adult General Chief complaint: Upper Respiratory Symptoms Stated complaint: Throat pain, fever Time Seen by Provider: 03/31/22 23:21 Source: patient Mode of arrival: ambulatory Limitations: no limitations History of Present Illness HPI narrative: 26-year-old female came in for evaluation of upper respiratory symptoms, sore throat, generalized body ache, coughing, congestion, subjective fever. No ex posure to a sick contact, Related Data Home Medications Medication Instructions Recorded Confirmed acetaminophen 325 mg tablet 650 mg PO QID PRN Pain 02/06/22 02/06/22 Previous Rx's Medication Instructions Recorded albuterol sulfate 90 mcg/actuation 2 puff inhalation Q4-6H PRN 12/25/21 aerosol inhaler (ProAir HFA) shortness of breath or wheezing #8.5 grams phenazopyridine 200 mg tablet 200 mg PO TID 2 days #6 tabs 02/05/22 (Pyridium) fluconazole 150 mg tablet 150 mg PO Q3D 2 doses #2 tabs 02/09/22 (Diflucan) levofloxacin 750 mg tablet 750 mg PO DAILY #14 tabs 02/09/22 ibuprofen 800 mg tablet 800 mg PO Q8H PRN pain #14 tabs 03/04/22 ondansetron 4 mg disintegrating 4 mg PO Q8H #14 tabs 03/04/22 tablet oxycodone 5 mg tablet 5 mg PO Q6H PRN pain #14 tabs 03/04/22 Allergies Allergy/AdvReac Type Severity Reaction Status Date / Time No Known Allergies Allergy Unverified 03/31/22 21:38 [No Known Allergies*] Review of Systems Review of Systems: All other systems are reviewed and are negative Constitutional: Reports as per HPI and Reports no additional constitutional complaints Eyes: Reports as per HPI and Reports no additional eye complaints Reports system reviewed and no additional complaints, except as documented Cardiovascular: Reports as per HPI and Reports no additional cardiovascular complaints Respiratory: Reports as per HPI and Reports no additional respiratory complaints Gastrointestinal: Reports as per HPI and Reports no additional gastrointestinal complaints Genitourinary: Reports no additional female genitourinary complaints Musculoskeletal: Reports no additional musculoskeletal complaints Skin/Breast: Reports system reviewed and no additional complaints, except as docu Psychiatric: Reports no additional psychiatric complaints Endocrine: Reports no additional endocrine complaints Hematologic/Lymphatic: Reports no additional hematologic/lymphatic complaints Allergic/Immunologic: Reports no additional allergic/immunologic complaints Reports system reviewed and no additional complaints, except as documented and Reports Abnormal speech present [facility] Past Medical History Medical History E coli bacteremia History of ESBL E. coli infection No pertinent past medical history Family History Family History Mother Diabetes Hypertension Maternal Grandfather Diabetes Hypertension Maternal Grandmother Diabetes Hypertension Colon cancer Social History Social History Alcohol intake: unknown Patient Tobacco Use Status: Never used Tobacco Substance Use Type: Marijuana Advance Directives: No Advance Directives Information Provided: Yes service: No Current occupational status: unemployed Physical Exam ED Vital Signs: Vital Signs - 24 hr 03/31/22 21:35 Temperature 98.5 F Pulse Rate 103 H Respiratory Rate 20 Blood Pressure 139/77 Pulse Oximetry 95 Oxygen Delivery Method Room Air BMI result Body Mass Index 41.5 Vital signs have been reviewed as appeared to be correct. Blood pressure normal. Heart rate normal. Respiration rate normal. Temperature normal. Oxygen saturation normal. Appearance: Alert. Oriented X3. No acute distress. Head: Normal external exam. Normocephalic. Atraumatic. No Chen signs noted. No raccoon eyes noted Eyes: PERRLA. EOMI. Conjunctiva and sclera normal. Eyelids normal. ENT: TM's Normal. Pharynx normal. Uvula midline. Moist mucous membranes. No trismus noted. No drooling noted. No muffled voice noted. Neck: Normal inspection. Neck supple. FROM. No adenopathy. Thyroid Normal. No meningeal signs. No neck mass noted. CVS: Normal heart rate and rhythm. Heart sound normal. No murmurs noted. Pulses normal throughout. Respiratory: No respiratory distress. Painless inspiration. Breath sounds normal. No wheezes/rales/rhonchi noted. Chest nontender. No accessory muscle usage noted or decreased air movement noted. Abdomen: Soft and nontender. Bowel sounds normal in all 4 quadrants. No distention noted. No organomegaly noted. No visible injury noted. Back: No CVA tenderness. Full range of motion noted. Skin: Skin warm and dry. Normal skin color. Normal skin turgor. No rashes/lesions/lacerations noted. Extremities: No lower extremity edema. Extremities exhibit normal range of motion. Extremities nontender. Neuro: Oriented X 3. Cranial nerve exam: II-XII are grossly intact No motor deficit. No sensory deficit. Reflexes normal. Medical Decision Making Differential Diagnosis Differential Diagnoses: The differential diagnosis associated with the pr esentation includes Influenza infection, COVID infection, RSV, strep pharyngitis, viral pharyngitis. Lab Data MDM Lab Attestation statement: I reviewed the patient's lab results. Labs: Lab Results 03/31/22 03/31/22 03/31/22 Range/Units 22:01 22:01 22:05 COVID-19 (FERNANDO) Negative (Negative) COVID-19 Clin Com See Note Influenza Type A (BILL) Negative (Negative) Influenza Type B (BILL) Negative (Negative) Influenza A & B Note See Note S. pyogenes GrpA BILL Negative (Negative) Discharge Plan Discharge Clinical Impression: Acute viral syndrome Patient Disposition: Home, Self-Care Instructions: Viral Syndrome (ED) Prescriptions: No Action ondansetron 4 mg tablet,disintegrating 4 mg PO Q8H Qty: 14 0RF ibuprofen 800 mg tablet 800 mg PO Q8H PRN (Reason: pain) Qty: 14 0RF oxycodone 5 mg tablet 5 mg PO Q6H PRN (Reason: pain) Qty: 14 0RF Rx Instructions: Partial Fill upon patient request. albuterol sulfate [ProAir HFA] 90 mcg/actuation HFA aerosol inhaler 2 puff inhalation Q4-6H PRN (Reason: shortness of breath or wheezing) Qty: 8.5 0RF phenazopyridine [Pyridium] 200 mg tablet 200 mg PO TID 2 Days Qty: 6 0RF acetaminophen 325 mg Tablet 650 mg PO QID PRN (Reason: Pain) fluconazole [Diflucan] 150 mg tablet 150 mg PO Q3D Qty: 2 0RF Rx Instructions: Take for vulvovaginal irritation. May repeat dose once after 72 hours if no improvement levofloxacin 750 mg tablet 750 mg PO DAILY Qty: 14 0RF Interventions: ED Discharge Assessment Last Done: 04/01/22 00:06 Discharge Date/Time: 04/01/22 00:07
== END 2022-04-01 00:07 | disposition home or self-care (01) ==
PROVIDERS: Emergency Provider Emergency Medicine
DX: B34.9 Viral infection, unspecified (principal); J02.9 Acute pharyngitis, unspecified; Z20.822 Contact with and (suspected) exposure to COVID-19; F12.90 Cannabis use, unspecified, uncomplicated; Z79.899 Other long term (current) drug therapy
CPT/HCPCS: 87502; 87635; 87651; 99282; 99283

== ENCOUNTER 2023-01-27 17:07 | Emergency (ER) | payer OTHER, SELFPAY ==
[2023-01-27 18:33] VITALS: BP 116/76; PULSE 69; RESP 20; TEMP 36.8; O2SAT 100; BMI 40.7
--- OUTSIDE RECORDS SUMMARY | 2023-01-27 20:45 | XMS_ITS | Continuity of Care Document ---
Author Name Unknown Organization [facility] Address [address] [place] [address]- Care Team Providers Care Cracker And Cookie Machine Operator Name Role Phone Malorie Voss MD Primary Care Physician [facility]counter [facility] Date(s): 04/01/22 - 05/01/[facility] [address] [place] [id number] Attending Physician: Milana Posey Admitting Physician: AdmtrMilana Referring Physician: Admtr, Milana Allergies, Adverse Reactions, Alerts No Known Allergies Immunizations Given and Recorded Vaccine Date Status Refusal Reason influenza virus vaccine, inactivated 02/06/22 Mahesh rded influenza virus vaccine, inactivated 10/21/10 Give n Human Papillomavirus Vaccine 02/02/11 Given Human Papillomavirus Vaccine 09/17/09 Given Human Papillomavirus Vaccine 09/02/08 Given Tet/Diphth/Acel, Pertussis (oldterm) 09/02/08 Give n Meningococcal Polysaccharide Vaccine 09/02/08 Give n Varicella Virus Vaccine 09/02/08 Given Varicella Virus Vaccine 08/11/99 Given Measles/Mumps/Rubella Virus Vaccine 11/03/01 Given Measles/Mumps/Rubella Virus Vaccine 05/02/98 Given Poliovirus Vaccine, Inactivated 11/03/01 Given Poliovirus Vaccine, Inactivated 01/29/99 Given Poliovirus Vaccine, Inactivated 97 Given Poliovirus Vaccine, Inactivated 97 Given Diphth/Pertussis,Acel/Tetanus (oldterm) 11/03/01 G iven Diphth/Pertussis,Acel/Tetanus (oldterm) 01/29/99 G iven Diphth/Pertussis,Acel/Tetanus (oldterm) 97 G iven Diphth/Pertussis,Acel/Tetanus (oldterm) 97 G iven Diphth/Pertussis,Acel/Tetanus (oldterm) 97 G iven Haemophilus B Conj Vaccine (oldterm) 05/02/98 Give n Haemophilus B Conj Vaccine (oldterm) 97 Give n Haemophilus B Conj Vaccine (oldterm) 97 Give n Haemophilus B Conj Vaccine (oldterm) 97 Give n Hepatitis B Vaccine (old term) 97 Given Hepatitis B Vaccine (old term) 97 Given Hepatitis B Vaccine (old term) 97 Given Medications Acetaminophen 650mg po qid prn pain, 0 Refills, Maintenance, 02/16/22 13:21:00 EST, Partial fill upon patient request if the prescription is for a schedule II opioid drug. Start Date: 02/16/22 Status: Ordered Flonase 50 mcg/inh nasal spray 1 sprays, Nares, Both, 2 times a day, # 16 Gm, 11 Refills, Maintenance, 04/01/22 9:13:00 EST, [place], [id number], Partial fill upon patient request if the prescription is for a schedule II opioid drug., 1 sprays Nares, Both 2 times a d... Start Date: 04/01/22 Stop Date: 03/16/25 Status: Ordered fluconazole 150 mg oral tablet 1 tablet = 150 mg, By Mouth, Once, repeat dose if still having symptoms in 72 hours, # 2 tablet, 0 Refills, Maintenance, 02/16/22 13:21:00 EST, [place], Partial fill upon patient request if the prescription is for a schedule II opioid drug. Start Date: 02/16/22 Stop Date: 02/17/22 Status: Ordered levoFLOXacin 750 mg oral tablet 1 tablet po q3days, may repeat in 72 hours if no improvement, # 2, 0 Refills, Maintenance, 02/17/2312:19:00 EST, Partial fill upon patient request if the prescription is for a schedule II opioid drug. Start Date: 02/16/22 Status: Ordered Problem List Condition Confirmation Course Effective Dates Status H ealth Status Informant Postoperative wound breakdown Confirmed Active Severe obesity Confirmed Active Social History Social History Type Response Smoking Status Never smoker entered on: 11/29/14 Sex Patient Care team information Care Team Personnel Name: Mayra Lopez NP Position: [facility] Associate Professional Member Role: Primary Care Nurse Address: Address: [address] [place] [address] Radiology & [place] [address]- Name: Malorie Voss MD Position: [facility] Primary Care Physician Member Role: PCP Address: Address: [address] [place] [address] [place] [address]- Care Team Related Persons Name: SHAE MUNIZ Name: NO, ONE
--- OUTSIDE RECORDS SUMMARY | 2023-01-27 20:45 | XMS_ITS | Continuity of Care Document ---
Author Name Unknown Organization [facility] Address [address] [place] [address]- Care Team Providers Care Desk Assistant Name Role Phone Maloire Voss MD Primary Care Physician [facility]counter [facility]s): 04/04/22 - 05/04/22 [facility] [address] [place] [id number] Allergies, Adverse Reactions, Alerts No Known Allergies [...] Gm, 11 Refills, Maintenance, 04/01/22 9:13:00 EST, [place], [facility] #[id number], Partial fill upon patient request if the [...] Team Personnel Name: Mayra Lopez NP Position: S Associate Professional Member Role: Primary Care Nurse Address: Address: [address] [place] [address] Radiology & Imaging [place], [place] [address] Name: Malorie Voss MD Position: [facility] Primary Care Physician Member Role: PCP Address: Address: [address] [place] [address] [place] [address]- Care Team Related Persons Name: SHAE MUNIZ Name: NO, AWA
--- OUTSIDE RECORDS SUMMARY | 2023-01-27 20:45 | XMS_ITS | Continuity of Care Document ---
Author Name Unknown Organization [facility] Address [address] [place] [address]- Care Team Providers Care Bus Starter Name Role Phone Malorie Voss MD Primary Care Physician [phone] [facility]counter [facility] Date[facility]s): 06/23/22 - 07/23/22 [facility] [address] [place] [id number] Allergies, Adverse Reactions, Alerts No Known Allergies [...] Gm, 11 Refills, Maintenance, 04/01/22 9:13:00 EST, [place], [facility] #[id number], Partial fill upon patient request if the [...] Member Role: Primary Care Nurse Address: Address: [address] [place] [address] Radiology & [place] [address]- Name: Malorie Voss MD Position: S Physician - Primary Care Member Role: PCP Address: Address: [address] [place] [address] [place] [address]- Care Team Related Persons Name: SHAE MUNIZ Name: NO, AWA
--- OUTSIDE RECORDS SUMMARY | 2023-01-27 20:45 | XMS_ITS | Continuity of Care Document ---
Author Name Unknown Organization [facility] Address [address] [place] [address]- Care Team Providers Care Propulsion Motor And Generator Repairer Name Role Phone Malorie Voss MD Primary Care Physician [phone] [facility]counter [facility](s): 04/02/22 - 05/02/22 [facility] [address] [place] [id number] Allergies, Adverse Reactions, Alerts No Known [...] Gm, 11 Refills, Maintenance, 04/01/22 9:13:00 EST, [place], [facility] #[id number], Partial fill upon patient request if the [...] Member Role: Primary Care Nurse Address: Address: [address] [place] [address] Radiology & Imaging [place], [place] [address] Name: Malorie Voss MD Position: [facility] Primary Care Physician Member Role: PCP Address: Address: [address] [place] [address] [place] [address]- Care Team Related Persons Name: SHAE MUNIZ Name: NO, AAW
--- OUTSIDE RECORDS SUMMARY | 2023-01-27 20:45 | XMS_ITS | Continuity of Care Document ---
Author Name Unknown Organization [facility] Address [address] [place] [address]- Care Team Providers Care Putter In Name Role Phone Malorie Voss MD Primary Care Physician [place] [id number] Date(s): 02/26/22 - 03/28/[address] [address]- Attending Physician: Milana Posey Admitting Physician: AdmMilana langston Referring Physician: Admtr, ArJose Raul Allergies, Adverse Reactions, Alerts No Known Allergies [...] opioid drug. Start Date: 02/16/22 Status: Ordered fluconazole 150 mg oral tablet [...] Team Personnel Name: Mayra Lopez NP Position: [facility] Associate Professional Member Role: Primary Care Nurse Address: Address: [address] [facility] Radiology & [place] [address]- Name: Malorie Voss MD Position: [facility] Primary Care Physician Member Role: PCP Address: Address: [address] [facility] [place] [address]- Care Team Related Persons Name: SHAE MUNIZ Name: NO, AWA
--- OUTSIDE RECORDS SUMMARY | 2023-01-27 20:45 | XMS_ITS | Continuity of Care Document ---
Author Name Unknown Organization [facility] Address [address] [place] [address]- Care Team Providers Care Medical And Health Services Manager Name Role Phone Tricia Estrada MD Primary Care Physician [facility] 08[facility]13/22 - 09/12/22 [facility] [address] [place] [id number] Attending Physician: Milana Posey Admitting Physician: AdmMilana langston Referring Physician: AdmtrMilana Allergies, Adverse Reactions, Alerts No Known Allergies [...] Gm, 11 Refills, Maintenance, 04/01/22 9:13:00 EST, [place], [facility] #[id number], Partial fill upon patient request if the [...] Care team information Care Team Personnel Name: John PACHECO, Mayra Card Position: [facility] Associate Professional Member Role: Primary Care Nurse Address: Address: [address] [facility] Radiology [place] [address]- Name: Tricia Estrada MD Position: [facility] Resident Member Role: PCP Address: Address: [address] [facility] [place] [address]- Care Team Related Persons Name: SHAE MUNIZ Name: NO, ONE
--- OUTSIDE RECORDS SUMMARY | 2023-01-27 20:46 | XMS_ITS | Continuity of Care Document ---
Author Name Unknown Organization [facility] Address [address] [place] [address]- Care Team Providers Care Manhole Stripper Name Role Phone Malorie Voss MD Primary Care Physician [facility]s): 03/15/22 - 04/14/22 [facility] [address] [place] [id number] Allergies, Adverse Reactions, Alerts No Known [...] opioid drug. Start Date: 02/16/22 Status: Ordered benzocaine topical 20% mucous membrane spray 1 sprays, Topically, 3 times a day, PRN for pain, for 14 days, # 2 each, 0 Refills, Acute 04/15/22 9:13:00 EST, 04/01/22 9:13:00 EST, [place], [facility] #[id number], Partial fill upon patient request if the prescription is for a schedule II opioid... Start Date: 04/01/22 Stop Date: 04/15/22 Status: Ordered Flonase 50 mcg/inh nasal spray 1 sprays, Nares, Both, 2 times a day, # 16 Gm, 11 Refills, Maintenance, 04/01/22 9:13:00 EST, [place], [facility] #[id number], Partial fill upon patient request if the [...] Team Personnel Name: Mayra Lopez NP Position: [facility] Associate Professional Member Role: Primary Care Nurse Address: Address: [address] [place] [address] Radiology [address] Name: Malorie Voss MD Position: [facility] Primary Care Physician Member Role: PCP Address: Address: [address] [place] [address] General Pediatrics C [address] Care Team Related Persons Name: SHAE MUNIZ Name: NO, ONE
--- OUTSIDE RECORDS SUMMARY | 2023-01-27 20:46 | XMS_ITS | Continuity of Care Document ---
Author Name Unknown Organization [facility] Address [address] [place] [address]- Care Team Providers Care Enterprise Data Architect Name Role Phone Malorie Voss MD Primary Care Physician [place] [facility] [place]22 - 07/23/22 [facility] [address] [place] [id number] Attending Physician: Not on Staff, Attending MD Allergies, Adverse Reactions, Alerts No Known Allergies [...] Gm, 11 Refills, Maintenance, 04/01/22 9:13:00 EST, [place], [facility] #[id number], Partial fill upon patient request if the [...] Member Role: Primary Care Nurse Address: Address: [address] [place] [address] Radiology & [place] [address]- Name: Malorie Voss MD Position: S Physician - Primary Care Member Role: PCP Address: Address: [address] [place] [address] [place] [address]- Care Team Related Persons Name: CRISTY SHAE Name: NO, ONE
[2023-01-27] MEDS: Diphth,Pertus(ACell),Tet Adult 0.5 ML SYRINGE IM (21:33)
[2023-01-27] MEDS: Lidocaine HCl 1%/Epi 1:100,000 10 ML VIAL INFILTRATI (21:33)
[2023-01-27] MEDS: cephALEXin 500 MG CAPSULE PO (21:34)
[2023-01-27 21:39] VITALS: BP 102/65; PULSE 86; RESP 14; TEMP 36.8; O2SAT 96
--- NOTE | 2023-01-27 22:19 | ED.GENADULT ---
HPI - General Adult General Chief complaint: Skin/Abscess/Foreign Body Stated complaint: Splinter rt elbow Time Seen by Provider: 01/27/23 20:43 Source: patient, RN notes reviewed and old records reviewed Mode of arrival: ambulatory Limitations: no limitations History of Present Illness HPI narrative: 27-year-old female presents for evaluation of a splinter in her right elbow. Patient reports that she was drinking before getting home and then when she got home she ?bumped my elbow on the wooden door. ? She states that she has a large splinter in the right elbow She tried to move herself and ?I just broke part of it off. ? She reports minimal pain Related Data Home Medications Medication Instructions Recorded Confirmed acetaminophen 325 mg tablet 650 mg PO QID PRN Pain 02/06/22 02/06/22 Previous Rx's Medication Instructions Recorded albuterol sulfate 90 mcg/actuation 2 puff inhalation Q4-6H PRN 12/25/21 aerosol inhaler (ProAir HFA) shortness of breath or wheezing #8.5 grams phenazopyridine 200 mg tablet 200 mg PO TID 2 days #6 tabs 02/05/22 (Pyridium) fluconazole 150 mg tablet 150 mg PO Q3D 2 doses #2 tabs 02/09/22 (Diflucan) levofloxacin 750 mg tablet 750 mg PO DAILY #14 tabs 02/09/22 ibuprofen 800 mg tablet 800 mg PO Q8H PRN pain #14 tabs 03/04/22 ondansetron 4 mg disintegrating 4 mg PO Q8H #14 tabs 03/04/22 tablet oxycodone 5 mg tablet 5 mg PO Q6H PRN pain #14 tabs 03/04/22 cephalexin 500 mg capsule 500 mg PO QID #20 caps 01/27/23 Allergies Allergy/AdvReac Type Severity Reaction Status Date / Time No Known Allergies Allergy Unverified 03/31/22 21:38 [No Known Allergies*] Review of Systems Constitutional: Constitutional: Denies chills and Denies fever(s) Musculoskeletal: Musculoskeletal: Reports arthralgias, Denies joint swelling and Denies limited range of motion Comments: Reports foreign body right elbow PMFSH Past Medical History Medical History E coli bacteremia History of ESBL E. coli infection No pertinent past medical history Family History Family History Mother Diabetes Hypertension Maternal Grandfather Diabetes Hypertension Maternal Grandmother Diabetes Hypertension Colon cancer Social History Social History Alcohol intake: current Alcohol intake frequency: holidays/special occasions only Alcohol type: hard liquor Patient Tobacco Use Status: Never used Tobacco Smoked in Last 30 Days: No Use of substances other than those prescribed or required for medical reasons: No Substance Use Type: Marijuana Advance Directives: No Advance Directives Information Provided: No Patient : No service: No Current occupational status: unemployed Physical Exam ED Vital Signs: Vital Signs - 24 hr 01/27/23 18:33 01/27/23 21:39 Temperature 98.2 F 98.3 F Pulse Rate 69 86 Respiratory Rate 20 14 Blood Pressure 116/76 102/65 Pulse Oximetry 100 96 Oxygen Delivery Method Room Air Room Air BMI result Body Mass Index 40.7 Const General: healthy appearing, comfortable, no acute distress, alert and awake Nutritional Appearance: well nourished Orientation/consciousness: patient oriented x3 HENMT Head: Yes normocephalic and Yes atraumatic Eyes Eyelids: Yes eyelids normal Conjunctivae: conjunctivae normal Sclerae: sclerae normal Corneas: corneas normal Pupils: Equal, round and reactive pupils present EOM: EOMs intact bilaterally Neck Neck: Yes full ROM Resp Effort & Inspection: normal respiratory effort, able to speak in complete sentences and not labored GI Inspection: No distended Palpation (GI): Soft to palpation, not firm, nontender, no guarding and not rigid Skin General skin exam: elasticity normal Neuro General: patient oriented x3 Cranial nerves: Yes Equal, round and reactive pupils present and Yes Bilaterally intact EOM present Cognition (Neuro): normal cognition Extrem Other: Patient has full range of motion with flexion extension of the right elbow.. Patient has a puncture wound with tissue left lateral elbow with an approximately 3 cm foreign body palpable within the soft tissue. There is an entrance wound and an exit wound. There is a small piece of the wooden foreign body visible and palpable at the edge of the exam wound Medications Administered Discontinued Medications Generic Name Dose Route Start Last Admin Trade Name Freq PRN Reason Stop Dose Admin Cephalexin HCl 500 mg 01/27/23 21:25 01/27/23 21:34 Cephalexin 500 Mg Capsule PO 01/27/23 21:26 500 mg ONCE ONE Administration Diphtheria/Tetanus/Acell Pertussis 0.5 ml 01/27/23 20:53 01/27/23 21:33 Diphth,Pertus(Acell),Tet Adult 0.5 Ml Syringe IM 01/27/23 20:54 0.5 ml .ONCE ONE Administration Lidocaine/Epinephrine 10 ml 01/27/23 20:47 01/27/23 21:33 Lidocaine Hcl 1%/Epi 1:100,000 10 Ml Vial INFILTRATI 01/27/23 20:48 10 ml ONCE ONE Administration Procedures Procedure Narrative Procedure Narrative: Foreign body removal right elbow The right elbow was prepped and draped in a sterile fashion The area was cleaned with Betadine. Approximately 5 cc of 1% lidocaine with epinephrine was infiltrated to the soft tissue of the left elbow I made an approximately 1 cm incision adjacent to the foreign body I was able to retrieve the entire foreign body by pushing the distal piece through the exit wound while grabbing visible and with forceps and removing The patient tolerated the procedure well, there were no complications Medical Decision Making Medical Decision Making MDM Narrative: Patient has an obvious puncture wound that is palpable and visible to the right elbow. See procedure note. It appears the entire foreign body was removed. The patient fluid of motion of the elbow. There were no complications. The patient's tetanus was updated. The patient was given 5 days of prophylactic antibiotics to prevent infection of the right elbow Differential Diagnosis Differential Diagnoses: The differential diagnosis associated with the presentation includes Foreign body Puncture wound Skin tear laceration Discharge Plan Discharge Clinical Impression: Acute foreign body of right elbow Patient Disposition: Home, Self-Care Instructions: Soft Tissue Foreign Body (ED) Additional Instructions: The splinter was removed in its entirety from your right elbow. You may apply topical antibiotic twice daily for the next 3 days Take cephalexin 4 times daily for the next 5 days to prevent infection Your tetanus was updated today Return for new or worsening symptoms Prescriptions: New cephalexin 500 mg capsule 500 mg PO QID Qty: 20 0RF No Action ondansetron 4 mg tablet,disintegrating 4 mg PO Q8H Qty: 14 0RF ibuprofen 800 mg tablet 800 mg PO Q8H PRN (Reason: pain) Qty: 14 0RF oxycodone 5 mg tablet 5 mg PO Q6H PRN (Reason: pain) Qty: 14 0RF Rx Instructions: Partial Fill upon patient request. albuterol sulfate [ProAir HFA] 90 mcg/actuation HFA aerosol inhaler 2 puff inhalation Q4-6H PRN (Reason: shortness of breath or wheezing) Qty: 8.5 0RF phenazopyridine [Pyridium] 200 mg tablet 200 mg PO TID 2 Days Qty: 6 0RF acetaminophen 325 mg Tablet 650 mg PO QID PRN (Reason: Pain) fluconazole [Diflucan] 150 mg tablet 150 mg PO Q3D Qty: 2 0RF Rx Instructions: Take for vulvovaginal irritation. May repeat dose once after 72 hours if no improvement levofloxacin 750 mg tablet 750 mg PO DAILY Qty: 14 0RF Stand Alone Forms: Work/School Release Interventions: ED Discharge Assessment Last Done: 01/27/23 21:44 Discharge Date/Time: 01/27/23 21:45
== END 2023-01-27 21:45 | disposition home or self-care (01) ==
PROVIDERS: Emergency Provider Emergency Medicine
DX: S50.351A Superficial foreign body of right elbow, initial encounter (principal); S60.511A Abrasion of right hand, initial encounter; X58.XXXA Exposure to other specified factors, initial encounter; Y93.9 Activity, unspecified; Y92.9 Unspecified place or not applicable; Y99.9 Unspecified external cause status; Z23 Encounter for immunization
CPT/HCPCS: 10120; 90471; 90715; 99284

== ENCOUNTER 2023-03-02 08:51 | Emergency (ER) | payer OTHER, SELFPAY ==
[2023-03-02 09:12] VITALS: BP 115/85; PULSE 81; RESP 18; TEMP 36.4; O2SAT 99; BMI 43.1
[2023-03-02 09:39] LABS: IDNOW Serial# 9DB6401D; Influenza A Negative (Negative); Influenza B2 Negative (Negative)
[2023-03-02 09:39] LABS: COVID-19 Test Negative (Negative); IDNOW Serial# 152EDE1D
[2023-03-02 09:47] LABS: IDNOW Serial# 58CA691E; Strep A Nucleic Acid Negative (Negative)
--- NOTE | 2023-03-02 10:15 | ED_ITS ---
HPI - General Adult General Chief complaint: Upper Respiratory Symptoms Stated complaint: Sore Throat Time Seen by Provider: 03/02/23 10:14 Source: patient Mode of arrival: ambulatory Limitations: no limitations History of Present Illness HPI narrative: Patient is a 27 year old assigned female at with no reported medical history presenting to the emergency department today with a sore throat. Patient states that over the last 3 days she has had a sore throat and fever. Patient denies any dizziness, lightheadedness, abdominal pain, nausea, vomiting, chills, blurry vision, double vision, loss of vision, chest pain, difficulty breathing, shortness of breath, back pain, night sweats, pain with urination, increased urinary frequency, increased urinary urgency, blood in her urine or stool, syncope or a near syncopal episode, recent trauma or falls, bowel incontinence, bladder incontinence, bowel retention, bladder retention, or any other complaints at this time. Onset (ago): day(s) (3) Severity: mild Severity scale (1-10): 3 Relieving factors: none Exacerbating factors: none Associated symptoms: fever/chills Treatments prior to arrival: none Related Data Home Medications Medication Instructions Recorded Confirmed acetaminophen 325 mg tablet 650 mg PO QID PRN Pain 02/06/22 02/06/22 Previous Rx's Medication Instructions Recorded albuterol sulfate 90 mcg/actuation 2 puff inhalation Q4-6H PRN 12/25/21 aerosol inhaler (ProAir HFA) shortness of breath or wheezing #8.5 grams phenazopyridine 200 mg tablet 200 mg PO TID 2 days #6 tabs 02/05/22 (Pyridium) fluconazole 150 mg tablet 150 mg PO Q3D 2 doses #2 tabs 02/09/22 (Diflucan) levofloxacin 750 mg tablet 750 mg PO DAILY #14 tabs 02/09/22 ibuprofen 800 mg tablet 800 mg PO Q8H PRN pain #14 tabs 03/04/22 ondansetron 4 mg disintegrating 4 mg PO Q8H #14 tabs 03/04/22 tablet oxycodone 5 mg tablet 5 mg PO Q6H PRN pain #14 tabs 03/04/22 cephalexin 500 mg capsule 500 mg PO QID #20 caps 01/27/23 penicillin V potassium 500 mg 500 mg PO BID 10 days #20 tabs 03/02/23 tablet Allergies Allergy/AdvReac Type Severity Reaction Status Date / Time No Known Allergies Allergy Verified 03/02/23 09:16 [No Known Allergies*] Review of Systems Constitutional: Constitutional: Reports no additional constitutional complaints, Denies chills, Reports fever(s) and Denies night sweats Eyes: Eyes: Reports no additional eye complaints, Denies blurry vision, Denies change in vision, Denies diplopia, Denies eye discharge, Denies loss of vision and Denies eye pain ENT: Denies dizziness and Reports sore throat Cardiovascular: Cardiovascular: Reports no additional cardiovascular compla ints, Denies chest pain, Denies lightheadedness, Denies Loss of Consciousness and Denies dyspnea Respiratory: Respiratory: Reports no additional respiratory complaints and Denies dyspnea Gastrointestinal: Gastrointestinal: Reports no additional gastrointestinal complaints, Denies abdominal pain, Denies melena, Denies hematochezia, Denies change in bowel habits and Denies change in stool character Genitourinary: Genitourinary: Denies hematuria, Denies urinary frequency, Denies dysuria, Denies urinary incontinence, Denies urinary hesitancy and Denies urinary urgency Musculoskeletal: Musculoskeletal: Reports no additional musculoskeletal complaints, Denies numbness and Denies tingling Neurologic: Denies dizziness, Denies loss of vision, Denies numbness and Denies tingling Psychiatric: Psychiatric: Reports no additional psychiatric complaints Endocrine: Endocrine: Reports no additional endocrine complaints Hematologic/Lymphatic: Hematologic/Lymphatic: Reports no additional hematolo gic/lymphatic complaints Allergic/Immunologic: Allergic/Immunologic: Reports no additional allergic/immunologic complaints PMFSH Past Medical History Attestation statement: The following information was validated with the patient. Source: old records reviewed and nursing notes reviewed Onset Date is defined in the Problem List Problems that require an onset date and time if occurred within 24 hrs of arrival to the ED Aortic Dissection and Rupture; Neurologic impairment; Cardiopulmonary Arrest; Endotracheal Intubation; Insertion or Replacement of Mechanical Circulatory Assist Device Medical History Gram-negative bacteremia Pyelonephritis E coli bacteremia History of ESBL E. coli infection No pertinent past medical history Family History Family History Mother Diabetes Hypertension Maternal Grandfather Diabetes Hypertension Maternal Grandmother Diabetes Hypertension Colon cancer Social History Social History Alcohol intake: current Alcohol intake frequency: holidays/special occasions only Alcohol type: hard liquor Patient Tobacco Use Status: Never used Tobacco Substance Use Type: Marijuana Advance Directives: No Advance Directives Information Provided: No service: No Current occupational status: unemployed Physical Exam ED Vital Signs: Vital Signs - 24 hr 03/02/23 09:12 Temperature 97.6 F Pulse Rate 81 Respiratory Rate 18 Blood Pressure 115/85 Pulse Oximetry 99 Oxygen Delivery Method Room Air BMI result Body Mass Index 43.1 Const General: cooperative, no acute distress, alert and awake Nutritional Appearance: well nourished Orientation/consciousness: patient oriented x3 Limitations: no limitations HENMT Head: Yes normal to inspection and Yes atraumatic Ears: hearing grossly normal bilaterally and external ears normal General nose exam: Normal external nose present, no nasal discharge noted and no epistaxis Face and sinus: Yes normal facial exam, No abrasion and No laceration Mouth: Normal oral and palatal mucosa present, no drooling and no muffled voice Throat: Yes abnormal tonsil (bilateral erythema and exudates) Eyes General: appearance normal, both eyes and all related structures Periorbital: periorbital findings normal Eyelids: Yes eyelids normal Conjunctivae: conjunctivae normal Pupils: Equal, round and reactive pupils present EOM: EOMs intact bilaterally Neck Neck: Yes normal visual inspection, Yes full ROM and Yes no lymphadenopathy Chest Chest palpation & inspection: normal inspection of the chest Resp Effort & Inspection: normal respiratory effort and able to speak in complete sentences GI Inspection: Yes normal to inspection Neuro General: patient oriented x3 and moves all extremities Cranial nerves: Yes Equal, round and reactive pupils present Cognition (Neuro): normal cognition Motor exam (neuro): 5/5 motor strength present throughout Sensory Exam: Normal double simultaneous stimulation for sensation Coordination: [id number] test normal Extrem General: Yes normal to inspection, Yes full ROM and Yes capillary refill normal Psych Appearance: grossly normal Mental Status: mental status grossly normal Affect: normal affect Attitude: cooperative Thought process: Normal thought process present Thought content: Normal thought content present Insight: Good insight present (Psych) Medical Decision Making Medical Decision Making MDM Narrative: Patient is a 27 year old assigned female at with no reported medical history presenting to the emergency department today with a fever and sore throat. Patient's physical exam was as noted in the physical exam portion of this note. Patient's COVID-19, influenza, and strep tests were negative. However, given patient's clinical presentation, will treat the pharyngitis with an antibiotic. I explained my physical exam findings as well as all test results to the patient. I answered all questions asked by the patient. I stressed the importance of the patient taking her medication as prescribed. I stressed the importance of the patient following up with her primary care provider. I stressed the importance of the patient returning to the emergency department immediately if her symptoms were to worsen or if she were to develop any dizziness, shortness of breath, difficulty breathing, chest pain, blurry vision, loss of vision, nausea, vomiting, abdominal pain, fever, chills, back pain, or any other complaints. Patient verbalized agreement and understanding with this treatment plan and discharge. Differential Diagnosis Differential Diagnoses: The differential diagnosis associated with the presentation includes Strep pharyngitis Pharyngitis Influenza COVID-19 Admission/Observation Consideration of admission/observation: Escalation of care including admission/observation considered Patient would have been admitted to the hospital had her work up had any findings where hospital admission was appropriate and her clinical presentation warranted hospital admission. Lab Data [facility] Lab Attestation statement: I reviewed the patient's lab results. My interpretation of these results are in the MDM Rationale portion of this note. Labs: Lab Results 03/02/23 03/02/23 Range/Units 09:18 09:19 COVID-19 (FERNANDO) Negative (Negative) COVID-19 Clin Com See Note Influenza Type A (BILL) Negative (Negative) Influenza Type B (BILL) Negative (Negative) Influenza A & B Note See Note S. pyogenes GrpA BILL Negative (Negative) Prescription Management I considered prescription management with: Antibiotic (patient prescribed an antibiotic for pharyngitis.) Discharge Plan Discharge Clinical Impression: Pharyngitis Patient Disposition: Home, Self-Care Instructions: Pharyngitis (ED) Additional Instructions: Follow up with your primary care provider. Return to the emergency department immediately if your symptoms worsen or if you develop any dizziness, shortness of breath, difficulty breathing, chest pain, blurry vision, loss of vision, nausea, vomiting, abdominal pain, fever, chills, back pain, or any other complaints. Prescriptions: New penicillin V potassium 500 mg tablet 500 mg PO BID 10 Days Qty: 20 0RF No Action ondansetron 4 mg tablet,disintegrating 4 mg PO Q8H Qty: 14 0RF ibuprofen 800 mg tablet 800 mg PO Q8H PRN (Reason: pain) Qty: 14 0RF oxycodone 5 mg tablet 5 mg PO Q6H PRN (Reason: pain) Qty: 14 0RF Rx Instructions: Partial Fill upon patient request. albuterol sulfate [ProAir HFA] 90 mcg/actuation HFA aerosol inhaler 2 puff inhalation Q4-6H PRN (Reason: shortness of breath or wheezing) Qty: 8.5 0RF phenazopyridine [Pyridium] 200 mg tablet 200 mg PO TID 2 Days Qty: 6 0RF acetaminophen 325 mg Tablet 650 mg PO QID PRN (Reason: Pain) fluconazole [Diflucan] 150 mg tablet 150 mg PO Q3D Qty: 2 0RF Rx Instructions: Take for vulvovaginal irritation. May repeat dose once after 72 hours if no improvement levofloxacin 750 mg tablet 750 mg PO DAILY Qty: 14 0RF cephalexin 500 mg capsule 500 mg PO QID Qty: 20 0RF Referrals: [facility] [place] Family Medicine [Provider Group] (Call to establish and follow up with a primary care provider. If you already have a primary care provider, please follow up with them.) [facility] [place] [facility] [Provider Group] (Call to establish and follow up with a primary care provider. If you already have a primary care provider, please follow up with them.) [facility] [place] Primary Care,[facility] [Provider Group] (Call to establish and follow up with a primary care provider. If you already have a primary care provider, please follow up with them.) Stand Alone Forms: Work/School Release Print Language: Irish
[2023-03-02] MEDS: dexAMETHasone sod phosphate 10 MG/ML VIAL PO (10:43)
== END 2023-03-02 10:47 | disposition home or self-care (01) ==
PROVIDERS: Emergency Provider Emergency Medicine
DX: J02.9 Acute pharyngitis, unspecified (principal); Z11.52 Encounter for screening for COVID-19
CPT/HCPCS: 87502; 87635; 87651; 99283; J1100

== ENCOUNTER 2023-04-15 10:28 | Emergency (ER) | payer OTHER, SELFPAY ==
[2023-04-15 10:42] VITALS: BP 109/73; PULSE 83; RESP 18; TEMP 36.8; O2SAT 99; BMI 44.3
[2023-04-15 11:09] LABS: MANUAL DIFF FLAG NO
[2023-04-15 11:16] LABS: Basophils Absolute Auto 0.1 X10*3/uL (0.0-0.2); Basophils Percent Auto 0.6 % (0-2); Eosinophils Absolute Auto 0.1 X10*3/uL (0.0-0.4); Eosinophils Percent Auto 1.2 % (0-4); Hematocrit 40.6 % (37.0-47.0); Hemoglobin 13.5 g/dl (12.0-16.0); Imm Gran Abs Auto 0.05 X10*3/uL (0.00-0.03); Imm Gran Pct Auto 0.4 % (0.0-0.4); Lymphocytes Absolute Auto 2.5 X10*3/uL (1.2-4.9); Mean Corpuscular HGB Conc 33.3 g/dl (31.0-35.0); Mean Corpuscular Hemoglobin 27.5 pg (27.0-33.0); Mean Corpuscular Volume 82.7 fL (80.0-98.0); Mean Platelet Volume 9.5 fL (9.4-12.3); Monocytes Absolute Auto 0.4 X10*3/uL (0.1-1.2); Monocytes Percent Auto 3.8 % (2-11); Neutrophils Absolute Auto 8.2 x10*3/uL (2.0-8.3); Platelet Count 244 X10*3/uL (160-400); Red Blood Count 4.91 X10*6/uL (4.20-5.50); Red Cell Distribution Width 12.8 % (11.0-16.0); White Blood Count 11.4 X10*3/uL (4.8-10.8)
[2023-04-15 11:28] LABS: COVID-19 Test Negative (Negative); IDNOW Serial# 08D9AD1C; IDNOW Serial# 9DB6401D; Influenza A Negative (Negative); Influenza B2 Negative (Negative)
[2023-04-15 11:30] LABS: Alanine Aminotransferase 15 U/L (0-31); Albumin Level 4.1 g/dL (3.5-5.0); Alkaline Phosphatase 75 U/L (39-117); Anion Gap 12 (12-20); Aspartate Amino Transferase 15 U/L (5-31); Bilirubin Direct 0.2 mg/dL (0.0-0.5); Bilirubin Total 0.3 mg/dL (0.0-1.0); Blood Urea Nitrogen 11 mg/dL (9-16); Calcium 9.4 mg/dL (8.4-10.2); Carbon Dioxide 27 mmol/L (22-29); Chloride 106 mmol/L (96-108); Creatinine Clr Calc Pharmacy 157.8; Estimated Glomerular Filt Rate > 60; Glucose Random 122 mg/dL (60-115); Lipase 11 U/L (8-78); Potassium 3.7 mmol/L (3.3-5.1); Sodium 141 mmol/L (135-145); Total Protein 7.4 g/dL (6.5-8.0)
--- NOTE | 2023-04-15 13:25 | ED_ITS ---
HPI - General Adult General Chief complaint: General Medical Stated complaint: multiple symptoms Time Seen by Provider: 04/15/23 13:25 Source: patient, RN notes reviewed and old records reviewed Mode of arrival: ambulatory Limitations: no limitations History of Present Illness HPI narrative: 27-year-old female presents for evaluation of flu-like symptoms for the last week. She reports coughing, lightheadedness, dizzy, abdominal pain and vomiting She reports lower back pains. She states ?I thought was a kidney infection but it is not. ? Denies any fevers, chills. Denies any history abdominal surgeries Related Data Home Medications Medication Instructions Recorded Confirmed acetaminophen 325 mg tablet 650 mg PO QID PRN Pain 02/06/22 02/06/22 Previous Rx's Medication Instructions Recorded albuterol sulfate 90 mcg/actuation 2 puff inhalation Q4-6H PRN 12/25/21 aerosol inhaler (ProAir HFA) shortness of breath or wheezing #8.5 grams phenazopyridine 200 mg tablet 200 mg PO TID 2 days #6 tabs 02/05/22 (Pyridium) fluconazole 150 mg tablet 150 mg PO Q3D 2 doses #2 tabs 02/09/22 (Diflucan) levofloxacin 750 mg tablet 750 mg PO DAILY #14 tabs 02/09/22 ibuprofen 800 mg tablet 800 mg PO Q8H PRN pain #14 tabs 03/04/22 ondansetron 4 mg disintegrating 4 mg PO Q8H #14 tabs 03/04/22 tablet oxycodone 5 mg tablet 5 mg PO Q6H PRN pain #14 tabs 03/04/22 cephalexin 500 mg capsule 500 mg PO QID #20 caps 01/27/23 penicillin V potassium 500 mg 500 mg PO BID 10 days #20 tabs 03/02/23 tablet ondansetron 4 mg disintegrating 4 mg PO Q8H PRN nausea and 04/15/23 tablet vomiting #20 tabs Allergies Allergy/AdvReac Type Severity Reaction Status Date / Time No Known Allergies Allergy Verified 03/02/23 09:16 [No Known Allergies*] Review of Systems 2 Constitutional: Constitutional: Reports body ache(s), Denies chills, Denies fever(s), Reports headache(s) and Reports weakness Eyes: Eyes: Denies blurry vision ENT: Reports headache(s) and Denies sore throat Cardiovascular: Cardiovascular: Denies chest pain and Denies dyspnea Respiratory: Respiratory: Reports cough and Denies dyspnea Gastrointestinal: Gastrointestinal: Reports abdominal pain, Reports nausea and Reports vomiting Genitourinary: Genitourinary: Denies dysuria and Denies pelvic pain Musculoskeletal: Musculoskeletal: Reports back pain Integumentary/Breasts: Skin/Breast: Denies rash Neurologic: Reports headache(s) and Reports weakness PMFSH Past Medical History Medical History Gram-negative bacteremia Pyelonephritis E coli bacteremia History of ESBL E. coli infection No pertinent past medical history Family History Family History Mother Diabetes Hypertension Maternal Grandfather Diabetes Hypertension Maternal Grandmother Diabetes Hypertension Colon cancer Social History Social History Alcohol intake: current Alcohol intake frequency: holidays/special occasions only Alcohol type: hard liquor Patient Tobacco Use Status: Never used Tobacco Substance Use Type: Marijuana Advance Directives: No Advance Directives Information Provided: No service: No Current occupational status: unemployed Physical Exam ED Vital Signs: Vital Signs - 24 hr 04/15/23 10:42 Temperature 98.3 F Pulse Rate 83 Respiratory Rate 18 Blood Pressure 109/73 Pulse Oximetry 99 Oxygen Delivery Method Room Air BMI result Body Mass Index 44.3 Const General: healthy appearing, comfortable, no acute distress, alert and awake Nutritional Appearance: well nourished Orientation/consciousness: patient oriented x3 [facility]: Yes normocephalic and Yes atraumatic Eyes Eyelids: Yes eyelids normal Conjunctivae: conjunctivae normal Sclerae: sclerae normal Corneas: corneas normal Pupils: Equal, round and reactive pupils present EOM: EOMs intact bilaterally Neck Neck: Yes full ROM Resp Effort & Inspection: normal respiratory effort, able to speak in complete sentences, no audible wheezes and not labored Auscultation: clear to auscultation bilaterally Cardio Rate: regular rate Rhythm: regular rhythm GI Inspection: No distended Palpation (GI): Soft to palpation, not firm, Tenderness to palpation present (GI) (Diffuse abdominal tenderness without focal point tenderness. No rebound), no guarding and not rigid Skin General skin exam: elasticity normal Neuro General: patient oriented x3 Cranial nerves: Yes Equal, round and reactive pupils present and Yes Bilaterally intact EOM present Cognition (Neuro): normal cognition Extrem Other: Moving all extremities well without any obvious deformities Course Reevaluation(s) Reevaluation #1: Patient extremely agitated that she had been waiting for approximately 3 hours. She was called about 30 minutes ago but did not respond. The patient threatening myself and nursing staff, security was called. The patient is medically stable for discharge and will be discharged Time: 13:34 Medical Decision Making Medical Decision Making [facility] Narrative: 27-year-old female presents for evaluation of flu-like symptoms. She endorses cough, vomiting, abdominal pain. Plan for labs, viral swabs Differential Diagnosis Differential Diagnoses: The differential diagnosis associated with the presentation includes Gastroenteritis Viral syndrome Influenza COVID-19 Appendicitis Lab Data [facility] Lab Attestation statement: I reviewed the patient's lab results. Mild leukocytosis to 11.4 K which may be reactive to vomiting. No anemia. No significant electrolyte abnormalities normal renal function 04/15/23 11:03 04/15/23 11:03 Labs: Lab Results 04/15/23 Range/Units 11:03 WBC 11.4 H (4.8-10.8) X10*3/uL RBC 4.91 (4.20-5.50) X10*6/uL Hgb 13.5 (12.0-16.0) g/dl Hct 40.6 (37.0-47.0) % MCV 82.7 (80.0-98.0) fL MCH 27.5 (27.0-33.0) pg MCHC 33.3 (31.0-35.0) g/dl RDW 12.8 (11.0-16.0) % Plt Count 244 (160-400) X10*3/uL MPV 9.5 (9.4-12.3) fL Immature Gran % (Auto) 0.4 (0.0-0.4) % Neut % (Auto) 72.0 (45-73) % Lymph % (Auto) 22.0 (20-40) % [place] % (Auto) 3.8 (2-11) % Eos % (Auto) 1.2 (0-4) % Baso % (Auto) 0.6 (0-2) % Lymph # (Auto) 2.5 (1.2-4.9) X10*3/uL [place] # (Auto) 0.4 (0.1-1.2) X10*3/uL Eos # (Auto) 0.1 (0.0-0.4) X10*3/uL Baso # (Auto) 0.1 (0.0-0.2) X10*3/uL Abs Immat Gran (auto) 0.05 H (0.00-0.03) X10*3/uL Absolute Neuts (auto) 8.2 (2.0-8.3) x10*3/uL Absolute Nucleated RBC 0.000 (0.0-0.012) X10*3/uL Nucleated RBC % (auto) 0.0 (0.0-0.2) /100WBC Sodium 141 (135-145) mmol/L Potassium 3.7 (3.3-5.1) mmol/L Chloride 106 (96-108) mmol/L Carbon Dioxide 27 (22-29) mmol/L Anion Gap 12 (12-20) BUN 11 (9-16) mg/dL Creatinine 0.76 (0.5-1.4) mg/dL Estim Creat Clear Calc 157.8 Estimated GFR > 60 Random Glucose 122 H (60-115) mg/dL Calcium 9.4 (8.4-10.2) mg/dL Total Bilirubin 0.3 (0.0-1.0) mg/dL Direct Bilirubin 0.2 (0.0-0.5) mg/dL AST 15 (5-31) U/L ALT 15 (0-31) U/L Alkaline Phosphatase 75 (39-117) U/L Total Protein 7.4 (6.5-8.0) g/dL Albumin 4.1 (3.5-5.0) g/dL Lipase 11 (8-78) U/L COVID-19 (FERNANDO) Negative (Negative) COVID-19 Clin Com See Note Influenza Type A (BILL) Negative (Negative) Influenza Type B (BILL) Negative (Negative) Influenza A & B Note See Note Tests considered The following testing was considered but not selected: Consider CT scan of the abdomen pelvis but favored to be less likely as the patient reports symptoms started 1 week ago she has no focal right lower quadrant tenderness, no rebound or guarding. Discharge Plan Discharge Clinical Impression: Abdominal pain, Cough, Vomiting Patient Disposition: Home, Self-Care Instructions: Acute Nausea and Vomiting (ED) Additional Instructions: Your blood work was reassuring You did not give us a urine sample to assess for a UTI Drink lots of fluids, small sips at a time Drink Zofran as needed for nausea/vomiting Prescriptions: New ondansetron 4 mg tablet,disintegrating 4 mg PO Q8H PRN (Reason: nausea and vomiting) Qty: 20 0RF No Action ondansetron 4 mg tablet,disintegrating 4 mg PO Q8H Qty: 14 0RF ibuprofen 800 mg tablet 800 mg PO Q8H PRN (Reason: pain) Qty: 14 0RF oxycodone 5 mg tablet 5 mg PO Q6H PRN (Reason: pain) Qty: 14 0RF Rx Instructions: Partial Fill upon patient request. albuterol sulfate [ProAir HFA] 90 mcg/actuation HFA aerosol inhaler 2 puff inhalation Q4-6H PRN (Reason: shortness of breath or wheezing) Qty: 8.5 0RF phenazopyridine [Pyridium] 200 mg tablet 200 mg PO TID 2 Days Qty: 6 0RF acetaminophen 325 mg Tablet 650 mg PO QID PRN (Reason: Pain) fluconazole [Diflucan] 150 mg tablet 150 mg PO Q3D Qty: 2 0RF Rx Instructions: Take for vulvovaginal irritation. May repeat dose once after 72 hours if no improvement levofloxacin 750 mg tablet 750 mg PO DAILY Qty: 14 0RF cephalexin 500 mg capsule 500 mg PO QID Qty: 20 0RF penicillin V potassium 500 mg tablet 500 mg PO BID 10 Days Qty: 20 0RF Stand Alone Forms: Work/School Release
--- NOTE | 2023-04-15 13:37 | PC.NURSE ---
Pt very disrespectful in triage telling this insurance writer to shut up- I'm going to kill you if you open your mouth again You stupid bitch . Pt not listening to our attempts to descalte patient- security called immediately to triage. Pt continually threatening myself and provider- Pt refusing to leave to triage office patient escorted out by security
== END 2023-04-15 13:40 | disposition home or self-care (01) ==
PROVIDERS: Emergency Medicine; Emergency Provider Emergency Medicine Emergency Medical Services
DX: R05.9 Cough, unspecified (principal); R11.10 Vomiting, unspecified; R10.9 Unspecified abdominal pain; Z11.52 Encounter for screening for COVID-19
CPT/HCPCS: 36415; 80053; 80076; 82248; 83690; 85025; 87502; 87635; 99281; 99283

== ENCOUNTER 2024-01-11 21:41 | Emergency (ER) | payer OTHER, SELFPAY ==
--- NOTE | ~2024-01-11 | XR_ITS ---
EXAMINATION: XR CHEST CLINICAL INFORMATION: cough, sob COMPARISON: Chest and RIBS 06/02/2018 TECHNIQUE: 2 views of the chest were obtained. FINDINGS: No significant abnormality is noted involving the heart, lungs, mediastinum, bony thorax or soft tissues. XR/XR chest 2V IMPRESSION: Unremarkable examination. Electronically signed by: Wild Reno MD 01/11/2024 11:30 PM [facility]
[2024-01-11 21:43] VITALS: BP 119/85; PULSE 86; RESP 20; TEMP 36.4; O2SAT 98; BMI 47.7
[2024-01-11 22:13] LABS: IDNOW Serial# 08D9AD1C; Strep A Nucleic Acid Negative (Negative)
[2024-01-11 22:15] LABS: Hematocrit 37.4 % (37.0-47.0); Hemoglobin 12.8 g/dl (12.0-16.0); Mean Corpuscular HGB Conc 34.2 g/dl (31.0-35.0); Mean Corpuscular Hemoglobin 27.9 pg (27.0-33.0); Mean Corpuscular Volume 81.5 fL (80.0-98.0); Mean Platelet Volume 9.2 fL (9.4-12.3); Platelet Count 276 X10*3/uL (160-400); Red Blood Count 4.59 X10*6/uL (4.20-5.50); Red Cell Distribution Width 13.1 % (11.0-16.0)
[2024-01-11 22:29] LABS: Anion Gap 17 (12-20); Blood Urea Nitrogen 9 mg/dL (9-16); Calcium 8.9 mg/dL (8.4-10.2); Carbon Dioxide 23 mmol/L (22-29); Chloride 106 mmol/L (96-108); Creatinine Clr Calc Pharmacy 148.2; Estimated Glomerular Filt Rate > 60; Glucose Random 118 mg/dL (60-115); Potassium 3.6 mmol/L (3.3-5.1); Sodium 142 mmol/L (135-145)
[2024-01-11 22:51] LABS: Influenza A PCR NEGATIVE (Negative); Influenza B PCR NEGATIVE (Negative); Resp Syncy Virus RNA Qual PCR NEGATIVE (Negative); SARS COV2 PCR INHOUSE NEGATIVE (Negative)
[2024-01-12 00:30] VITALS: BP 139/78; PULSE 78; RESP 20; TEMP 36.8; O2SAT 97
--- NOTE | 2024-01-12 00:46 | ED_ITS ---
HPI - URI/Sore Throat General Chief Complaint: Upper Respiratory Symptoms Stated Complaint: Sore Throat Time Seen by Provider: 01/12/24 00:35 Source: patient Mode of arrival: ambulatory Limitations: no limitations History of Present Illness ED Provider: karyn TORRES Narrative: Patient complaining of sore throat for last 3 weeks with cough no fever no chills patient had a COVID flu strep test done prior to my evaluation which was negative no fever no chills Related Data Home Medications ?Medication ?Instructions ?Recorded ?Confirmed acetaminophen 325 mg tablet 650 mg PO QID PRN Pain 02/06/22 02/06/22 Previous Rx's ?Medication ?Instructions ?Recorded albuterol sulfate 90 mcg/actuation 2 puff inhalation Q4-6H PRN 12/25/21 aerosol inhaler (ProAir HFA) shortness of breath or wheezing #8.5 grams phenazopyridine 200 mg tablet 200 mg PO TID 2 days #6 tabs 02/05/22 (Pyridium) fluconazole 150 mg tablet 150 mg PO Q3D 2 doses #2 tabs 02/09/22 (Diflucan) levofloxacin 750 mg tablet 750 mg PO DAILY #14 tabs 02/09/22 ibuprofen 800 mg tablet 800 mg PO Q8H PRN pain #14 tabs 03/04/22 ondansetron 4 mg disintegrating 4 mg PO Q8H #14 tabs 03/04/22 tablet oxycodone 5 mg tablet 5 mg PO Q6H PRN pain #14 tabs 03/04/22 cephalexin 500 mg capsule 500 mg PO QID #20 caps 01/27/23 penicillin V potassium 500 mg 500 mg PO BID 10 days #20 tabs 03/02/23 tablet ondansetron 4 mg disintegrating 4 mg PO Q8H PRN nausea and 04/15/23 tablet vomiting #20 tabs benzonatate 200 mg capsule 200 mg PO TID PRN cough #20 caps 01/12/24 cefuroxime axetil 500 mg tablet 500 mg PO BID 7 days #14 tabs 01/12/24 Allergies Allergy/AdvReac Type Severity Reaction Status Date / Time No Known Allergies Allergy Verified 01/11/24 21:44 [No Known Allergies*] Review of Systems 2 Review of Systems: Yes all other systems are reviewed and are negative PMFSH Past Medical History Medical History Gram-negative bacteremia Pyelonephritis E coli bacteremia History of ESBL E. coli infection No pertinent past medical history Family History Family History Mother Diabetes Hypertension Maternal Grandfather Diabetes Hypertension Maternal Grandmother Diabetes Hypertension Colon cancer Social History Social History Alcohol intake: current Alcohol intake frequency: holidays/special occasions only Alcohol type: hard liquor Patient Tobacco Use Status: Never used Tobacco Substance Use Type: Marijuana Advance Directives: No Advance Directives Information Provided: Yes service: No Current occupational status: unemployed Physical Exam 2 Vital Signs: Vital Signs: Last Vital Signs Temp 98.3 F 01/12/24 00:30 Pulse 78 01/12/24 00:30 Resp 20 01/12/24 00:30 BP 139/78 01/12/24 00:30 Pulse Ox 97 01/12/24 00:30 O2 Del Method Room Air 01/12/24 00:30 BMI result Body Mass Index 47.7 Appearance: Alert. Oriented X3. No acute distress. ENT: Pharynx erythema++ no exudates Oral Mucosa moist Neck: Normal inspection. Neck supple. CVS: Normal heart rate and rhythm. Pulses normal. Respiratory: No respiratory distress. Equal air entry bilateral, no wheezing/rales/rhonchi Abdomen: Soft and nontender. Bowel sounds are present, Skin: Skin warm and dry. Normal skin color. Normal skin turgor. Extremities: No lower extremity edema. No calf tenderness Neuro: Oriented X 3. Medical Decision Making Lab Data 01/11/24 21:58 01/11/24 21:58 Labs: Lab Results 01/11/24 Range/Units 21:58 WBC 14.0 H (4.8-10.8) X10*3/uL RBC 4.59 (4.20-5.50) X10*6/uL Hgb 12.8 (12.0-16.0) g/dl Hct 37.4 (37.0-47.0) % MCV 81.5 (80.0-98.0) fL MCH 27.9 (27.0-33.0) pg MCHC 34.2 (31.0-35.0) g/dl RDW 13.1 (11.0-16.0) % Plt Count 276 (160-400) X10*3/uL MPV 9.2 L (9.4-12.3) fL Absolute Nucleated RBC 0.000 (0.0-0.012) X10*3/uL Nucleated RBC % (auto) 0.0 (0.0-0.2) /100WBC Sodium 142 (135-145) mmol/L Potassium 3.6 (3.3-5.1) mmol/L Chloride 106 (96-108) mmol/L Carbon Dioxide 23 (22-29) mmol/L Anion Gap 17 (12-20) BUN 9 (9-16) mg/dL Creatinine 0.81 (0.5-1.4) mg/dL Estim Creat Clear Calc 148.2 Estimated GFR > 60 Random Glucose 118 H (60-115) mg/dL Calcium 8.9 (8.4-10.2) mg/dL Influenza Type A (PCR) NEGATIVE (Negative) Influenza Type B (PCR) NEGATIVE (Negative) RSV RNA Qual (PCR) NEGATIVE (Negative) SARS-CoV-2 RNA (RT-PCR) NEGATIVE (Negative) S. pyogenes GrpA BILL Negative (Negative) Discharge Plan Discharge Clinical Impression: Pharyngitis Patient Disposition: Home, Self-Care Instructions: Pharyngitis (ED) Additional Instructions: Take antibiotic as prescribed Saline gargles as advised take tessalon for pain and cough Prescriptions: New benzonatate 200 mg capsule 200 mg PO TID PRN (Reason: cough) Qty: 20 0RF cefuroxime axetil 500 mg tablet 500 mg PO BID 7 Days Qty: 14 0RF No Action ondansetron 4 mg tablet,disintegrating 4 mg PO Q8H Qty: 14 0RF ibuprofen 800 mg tablet 800 mg PO Q8H PRN (Reason: pain) Qty: 14 0RF oxycodone 5 mg tablet 5 mg PO Q6H PRN (Reason: pain) Qty: 14 0RF Rx Instructions: Partial Fill upon patient request. albuterol sulfate [ProAir HFA] 90 mcg/actuation HFA aerosol inhaler 2 puff inhalation Q4-6H PRN (Reason: shortness of breath or wheezing) Qty: 8.5 0RF phenazopyridine [Pyridium] 200 mg tablet 200 mg PO TID 2 Days Qty: 6 0RF acetaminophen 325 mg Tablet 650 mg PO QID PRN (Reason: Pain) fluconazole [Diflucan] 150 mg tablet 150 mg PO Q3D Qty: 2 0RF Rx Instructions: Take for vulvovaginal irritation. May repeat dose once after 72 hours if no improvement levofloxacin 750 mg tablet 750 mg PO DAILY Qty: 14 0RF cephalexin 500 mg capsule 500 mg PO QID Qty: 20 0RF penicillin V potassium 500 mg tablet 500 mg PO BID 10 Days Qty: 20 0RF ondansetron 4 mg tablet,disintegrating 4 mg PO Q8H PRN (Reason: nausea and vomiting) Qty: 20 0RF Print Language: Mongolian
--- NOTE | 2024-01-12 00:49 | PC.NURSE ---
pt yelling and swearing in the hallway unhappy with negative test results and having to wait 20 minutes for MD
[2024-01-12] MEDS: cefuroxime axetiL 500 MG TABLET PO (00:51)
[2024-01-12] MEDS: Lidocaine HCl Viscous 2 % 15 ML SOLUTION MUCOUS MEM (00:51)
[2024-01-12 00:54] VITALS: BP 139/78; PULSE 78; RESP 20; TEMP 36.8; O2SAT 97
== END 2024-01-12 00:54 | disposition home or self-care (01) ==
PROVIDERS: Emergency Provider Internal Medicine
DX: J02.9 Acute pharyngitis, unspecified (principal); Z03.818 Encounter for observation for suspected exposure to other biological agents ruled out; R05.9 Cough, unspecified
CPT/HCPCS: 0241U; 36415; 71046; 80048; 85027; 87651; 99283

== ENCOUNTER 2024-02-11 18:16 | Emergency (ER) | payer OTHER, SELFPAY ==
--- NOTE | ~2024-02-11 | XR_ITS ---
CLINICAL HISTORY: right foot pain s p twisting injury 3 view right foot Comparison: None Findings: Mild subluxation of the proximal interphalangeal joint of the 5th digit is age indeterminate. Variant fusion of the distal interphalangeal joint of 5th digit. No displaced fracture. Soft tissue swelling is nonspecific and predominately involving the forefoot. No radiopaque retained foreign body. IMPRESSION: 1. No acute fracture. 2. Mild subluxation of the imaged 5th proximal interphalangeal joint. This document has been electronically signed by: Colt Viera MD on 02/11/2024 19:09:29
--- NOTE | ~2024-02-11 | XR_ITS ---
CLINICAL HISTORY: twisted right ankle 3 view right ankle Comparison: None Findings: Sclerosis of the distal fibula appears non aggressive. Small ankle effusion. No dislocation or displaced fracture. No radiopaque retained foreign body. IMPRESSION: 1. Small effusion present. 2. No displaced fracture or dislocation. 3. Sclerosis of the distal fibula appears non aggressive. Consider outpatient MRI, if clinically indicated. This document has been electronically signed by: Colt Viera MD on 02/11/2024 19:03:52
[2024-02-11 18:24] VITALS: BP 131/79; PULSE 94; RESP 20; TEMP 36.7; O2SAT 98; BMI 42.8
--- NOTE | 2024-02-11 18:29 | ED_ITS ---
HPI - Fall General Chief Complaint: Fall Stated Complaint: fell this morning/rt foot swollen-WC claim Related Data Home Medications ?Medication ?Instructions ?Recorded ?Confirmed acetaminophen 325 mg tablet 650 mg PO QID PRN Pain 02/06/22 02/06/22 Previous Rx's ?Medication ?Instructions ?Recorded albuterol sulfate 90 mcg/actuation 2 puff inhalation Q4-6H PRN 12/25/21 aerosol inhaler (ProAir HFA) shortness of breath or wheezing #8.5 grams phenazopyridine 200 mg tablet 200 mg PO TID 2 days #6 tabs 02/05/22 (Pyridium) fluconazole 150 mg tablet 150 mg PO Q3D 2 doses #2 tabs 02/09/22 (Diflucan) levofloxacin 750 mg tablet 750 mg PO DAILY #14 tabs 02/09/22 ibuprofen 800 mg tablet 800 mg PO Q8H PRN pain #14 tabs 03/04/22 ondansetron 4 mg disintegrating 4 mg PO Q8H #14 tabs 03/04/22 tablet oxycodone 5 mg tablet 5 mg PO Q6H PRN pain #14 tabs 03/04/22 cephalexin 500 mg capsule 500 mg PO QID #20 caps 01/27/23 penicillin V potassium 500 mg 500 mg PO BID 10 days #20 tabs 03/02/23 tablet ondansetron 4 mg disintegrating 4 mg PO Q8H PRN nausea and 04/15/23 tablet vomiting #20 tabs benzonatate 200 mg capsule 200 mg PO TID PRN cough #20 caps 01/12/24 cefuroxime axetil 500 mg tablet 500 mg PO BID 7 days #14 tabs 01/12/24 prednisone 20 mg tablet 40 mg (2 x 20 mg) PO DAILY #10 tabs 01/12/24 Allergies Allergy/AdvReac Type Severity Reaction Status Date / Time No Known Allergies Allergy Verified 02/11/24 18:28 [No Known Allergies*] [facility] Past Medical History Medical History Gram-negative bacteremia Pyelonephritis E coli bacteremia History of ESBL E. coli infection No pertinent past medical history Family History Family History Mother Diabetes Hypertension Maternal Grandfather Diabetes Hypertension Maternal Grandmother Diabetes Hypertension Colon cancer Social History Social History Alcohol intake: current Alcohol intake frequency: holidays/special occasions only Alcohol type: hard liquor Patient Tobacco Use Status: Never used Tobacco Substance Use Type: Marijuana Advance Directives: No Advance Directives Information Provided: Yes Do you have a plan to hurt others: No Plan service: No Current occupational status: unemployed Physical Exam Vital Signs: Vital Signs: Last Vital Signs Temp 98.1 F 02/11/24 18:24 Pulse 94 02/11/24 18:24 Resp 20 02/11/24 18:24 BP 131/79 02/11/24 18:24 Pulse Ox 98 02/11/24 18:24 O2 Del Method Room Air 02/11/24 18:24 BMI result Body Mass Index 42.8 Course Course Course Narrative: This is a Rapid Medical Examination (RME) performed by Fabienne Carter PA-C in triage. Full HPI, ROS, assessment and treatment plan per primary provider in the Main ED. 28 yo female here w/ right ankle/ foot pain s/p slip and fall on ice while at work. states right ankle twisted. pain to lateral aspect, radiating up. able to ambulate w/ discomfort. denies head strike or LOC. no thinners. Plan: xrs Reevaluation(s) Reevaluation #1: Patient left the emergency department before myself or any of the other clinicians could review or explain physical exam findings, test results, need or lack there of for additional testing, treatment options, or a treatment plan. Discharge Plan Discharge Clinical Impression: Acute right ankle pain Patient Disposition: Left W/O Completing Treatment Prescriptions: No Action ondansetron 4 mg tablet,disintegrating 4 mg PO Q8H Qty: 14 0RF ibuprofen 800 mg tablet 800 mg PO Q8H PRN (Reason: pain) Qty: 14 0RF oxycodone 5 mg tablet 5 mg PO Q6H PRN (Reason: pain) Qty: 14 0RF Rx Instructions: Partial Fill upon patient request. albuterol sulfate [ProAir HFA] 90 mcg/actuation HFA aerosol inhaler 2 puff inhalation Q4-6H PRN (Reason: shortness of breath or wheezing) Qty: 8.5 0RF phenazopyridine [Pyridium] 200 mg tablet 200 mg PO TID 2 Days Qty: 6 0RF acetaminophen 325 mg Tablet 650 mg PO QID PRN (Reason: Pain) fluconazole [Diflucan] 150 mg tablet 150 mg PO Q3D Qty: 2 0RF Rx Instructions: Take for vulvovaginal irritation. May repeat dose once after 72 hours if no improvement levofloxacin 750 mg tablet 750 mg PO DAILY Qty: 14 0RF benzonatate 200 mg capsule 200 mg PO TID PRN (Reason: cough) Qty: 20 0RF cefuroxime axetil 500 mg tablet 500 mg PO BID 7 Days Qty: 14 0RF prednisone 20 mg tablet 40 mg PO DAILY Qty: 10 0RF cephalexin 500 mg capsule 500 mg PO QID Qty: 20 0RF penicillin V potassium 500 mg tablet 500 mg PO BID 10 Days Qty: 20 0RF ondansetron 4 mg tablet,disintegrating 4 mg PO Q8H PRN (Reason: nausea and vomiting) Qty: 20 0RF Discharge Date/Time: 02/11/24 22:05
--- NOTE | 2024-02-11 22:02 | PC.NURSE ---
Pt asking how much longer for wait time. Walked back to 22H with and promptly turned around and ambulatory out of department with steady gait in no acute distress.
== END 2024-02-11 22:05 | disposition left against medical advice (07) ==
PROVIDERS: Emergency Provider Emergency Medicine
DX: Z04.2 Encounter for examination and observation following work accident (principal); M25.571 Pain in right ankle and joints of right foot; M25.471 Effusion, right ankle
CPT/HCPCS: 73610; 73630; 99281; 99283

== ENCOUNTER → 2024-02-11 18:28 | Outpatient (BNV) | payer OTHER, SELFPAY | PROVIDERS: Visit Provider Radiology Neuroradiology | DX: M25.471 Effusion, right ankle (principal); S93.401A Sprain of unspecified ligament of right ankle, initial encounter; S93.601A Unspecified sprain of right foot, initial encounter | CPT/HCPCS: 73610; 73630 ==

== ENCOUNTER 2024-05-09 07:00 | Emergency (ER) | payer OTHER, SELFPAY ==
--- NOTE | ~2024-05-09 | US_ITS ---
EXAMINATION: US ABDOMEN LIMITED HISTORY: RUQ pain, epigastric pain, GB only TECHNIQUE: Real-time grayscale ultrasound imaging of the gallbladder was performed and images were reviewed. COMPARISON: Correlation is made with an unenhanced CT of the abdomen dated 02/05/2022. FINDINGS: Sonographic examination of the gallbladder was performed. The gallbladder is unremarkable in appearance without evidence of stones, wall thickening, or pericholecystic fluid. There is no sonographic Mcknight sign. The common bile duct is normal in caliber measuring 3 mm in diameter. US/US abdomen limited IMPRESSION: Unremarkable ultrasound of the gallbladder. Electronically signed by: Deni Puri MD 05/09/2024 11:39 AM EDT
[2024-05-09 07:13] VITALS: BP 131/74; PULSE 89; RESP 19; TEMP 36.5; O2SAT 97; BMI 45.2
--- NOTE | 2024-05-09 07:33 | ED_ITS ---
HPI - Nausea/Vomiting/Diarrhea General Chief complaint: Nausea/Vomiting/Diarrhea Stated complaint: fever, vomiting Time Seen by Provider: 05/09/24 07:30 Source: patient and old records reviewed Mode of arrival: ambulatory Limitations: no limitations History of Present Illness ED Provider: MARLA TORRES Narrative: 29 yo female with PMH of pyelonephritis and E. Coli bacteremia here today with c/o n/v/d chills and abdominal cramps - she denies travel, abx use. She was at a friends house with her friends 5 kids yesterday then started with symptoms hours later. No food exposures. She has not had GIB symptoms. She states she was sick all night long. No urinary symptoms. MD elicited complaint: nausea, vomiting, diarrhea and abdominal pain Onset (ago): day(s) (all night) Description of vomiting: watery Description of diarrhea: watery Associated nausea: Yes Associated abdominal pain: Yes Location of pain: diffuse Radiation: diffuse Pain consistency: intermittent Severity: moderate Quality: cramping Exacerbating factors: eating and vomiting Relieving factors: none Context: sick contacts Associated symptoms: fever/chills, malaise, nausea/vomiting and weakness Related Data Home Medications ?Medication ?Instructions ?Recorded ?Confirmed acetaminophen 325 mg tablet 650 mg PO QID PRN Pain 02/06/22 02/06/22 Previous Rx's ?Medication ?Instructions ?Recorded albuterol sulfate 90 mcg/actuation 2 puff inhalation Q4-6H PRN 12/25/21 aerosol inhaler (ProAir HFA) shortness of breath or wheezing #8.5 grams phenazopyridine 200 mg tablet 200 mg PO TID 2 days #6 tabs 02/05/22 (Pyridium) fluconazole 150 mg tablet 150 mg PO Q3D 2 doses #2 tabs 02/09/22 (Diflucan) levofloxacin 750 mg tablet 750 mg PO DAILY #14 tabs 02/09/22 ibuprofen 800 mg tablet 800 mg PO Q8H PRN pain #14 tabs 03/04/22 ondansetron 4 mg disintegrating 4 mg PO Q8H #14 tabs 03/04/22 tablet oxycodone 5 mg tablet 5 mg PO Q6H PRN pain #14 tabs 03/04/22 cephalexin 500 mg capsule 500 mg PO QID #20 caps 01/27/23 penicillin V potassium 500 mg 500 mg PO BID 10 days #20 tabs 03/02/23 tablet ondansetron 4 mg disintegrating 4 mg PO Q8H PRN nausea and 04/15/23 tablet vomiting #20 tabs benzonatate 200 mg capsule 200 mg PO TID PRN cough #20 caps 01/12/24 cefuroxime axetil 500 mg tablet 500 mg PO BID 7 days #14 tabs 01/12/24 prednisone 20 mg tablet 40 mg (2 x 20 mg) PO DAILY #10 tabs 01/12/24 ondansetron 4 mg disintegrating 4 mg PO Q8H PRN nausea and 05/09/24 tablet vomiting #20 tabs Allergies Allergy/AdvReac Type Severity Reaction Status Date / Time No Known Allergies Allergy Verified 05/09/24 07:14 [No Known Allergies*] Review of Systems 2 Review of Systems: Constitutional : No Weight loss, No Fever, pos Chills ENT/Mouth : No sore throat, No Rhinorrhea Eyes: No Swelling, No Redness Cardiovascular : No Chest Pain, No SOB, NoEdema Respiratory : No Cough, No Sputum, No Wheezing Gastrointestinal : Positive Nausea, Positive Vomiting, positive Diarrhea, positive abdominal Pain, No Hematochezia, No Melena Genitourinary : No Dysuria, No Urinary Frequency, No Hematuria, No Urgency Musculoskeletal : No joint pain, No Myalgias, No Joint Swelling Skin : No Skin Lesions, No rash Neuro : No Weakness, No Numbness, No Dizziness, No Headache All other systems reviewed and are negative. Gastrointestinal: Gastrointestinal: Reports nausea PMFSH Past Medical History Attestation statement: The following information was validated with the patient. Source: old records reviewed Medical History Gram-negative bacteremia Pyelonephritis E coli bacteremia History of ESBL E. coli infection No pertinent past medical history Family History Family History Mother Diabetes Hypertension Maternal Grandfather Diabetes Hypertension Maternal Grandmother Diabetes Hypertension Colon cancer Social History Social History Alcohol intake: current Alcohol intake frequency: holidays/special occasions only Alcohol type: hard liquor Patient Tobacco Use Status: Never used Tobacco Substance Use Type: Marijuana service: No Current occupational status: unemployed Physical Exam 2 Vital Signs: Vital Signs: Last Vital Signs Temp 97.7 F 05/09/24 12:56 Pulse 89 05/09/24 12:56 Resp 19 05/09/24 12:56 BP 131/74 05/09/24 12:56 Pulse Ox 97 05/09/24 12:56 O2 Del Method Room Air 05/09/24 12:56 BMI result Body Mass Index 45.2 Appearance: Alert. Oriented X3. No acute distress. Eyes: Pupils equal, round and reactive to light. ENT: Pharynx normal. Neck: Normal inspection. Neck supple. CVS: Normal heart rate and rhythm. Pulses normal. Respiratory: No respiratory distress. Breath sounds normal. Abdomen: Soft and mild ttp diffuse and upper abdomen no rebound Skin: Skin warm and dry. Normal skin color. Extremities: No lower extremity edema. No calf ttp Neuro: Oriented X 3. No motor deficit. No sensory deficit. CN2-12 intact Medications Administered Discontinued Medications Generic Name Dose Route Start Last Admin Trade Name Abhishekq PRN Reason Stop Dose Admin Famotidine 20 mg 05/09/24 07:44 05/09/24 09:03 Famotidine/Pf 20 Mg/2 Ml Vial IVPUSH 05/09/24 07:45 20 mg ONCE ONE Administration Lactated Ringer's 1,000 mls @ 999 mls/hr 05/09/24 07:44 05/09/24 08:07 Lr IV 05/09/24 08:44 999 mls/hr .Q1H1M ONE Administration Acetaminophen 1,000 mg in 100 mls @ 400 mls/hr 05/09/24 10:11 05/09/24 10:45 Ofirmev IV 05/09/24 10:25 Infused ONCE ONE Infusion Ketorolac Tromethamine 15 mg 05/09/24 07:44 05/09/24 08:08 Ketorolac Tromethamine 15 Mg/Ml Vial IVPUSH 05/09/24 07:45 15 mg ONCE ONE Administration Ondansetron HCl 4 mg 05/09/24 07:44 05/09/24 08:10 Ondansetron Hcl 4 Mg/2 Ml Vial IVPUSH 05/09/24 07:45 4 mg ONCE ONE Administration Prochlorperazine Edisylate 10 mg 05/09/24 10:08 05/09/24 10:30 Prochlorperazine Edisylate 10 Mg/2 Ml Vial IVPUSH 05/09/24 10:09 10 mg ONCE ONE Administration Medical Decision Making Medical Decision Making [facility] Narrative: 29 yo female with PMH of pyelonephritis and E. Coli bacteremia here today with c/o n/v/d and abdominal cramps with only known risk factor is exposure to a friends kids. She has no GIB symptoms, no overt fever. Her abdominal cramping is likely related to diarrhea. At this time will obtain basic labs, UA, IVF and supportive medications. Suspect viral syndrome vs food toxicity. Differential Diagnosis Differential Diagnoses: The differential diagnosis associated with the presentation includes viral syndrome, food toxicity, dehydration, anemia Admission/Observation Consideration of admission/observation: Escalation of care including admission/observation considered tolerating PO VS and labs reassuring stable for DC Lab Data [facility] Lab Attestation statement: I reviewed the patient's lab results. WBC due to vomiting 05/09/24 07:32 05/09/24 07:32 Labs: Lab Results 05/09/24 05/09/24 Range/Units 07:32 09:29 WBC 17.8 H (4.8-10.8) X10*3/uL RBC 4.90 (4.20-5.50) X10*6/uL Hgb 13.3 (12.0-16.0) g/dl Hct 40.4 (37.0-47.0) % MCV 82.4 (80.0-98.0) fL MCH 27.1 (27.0-33.0) pg MCHC 32.9 (31.0-35.0) g/dl RDW 13.2 (11.0-16.0) % Plt Count 252 (160-400) X10*3/uL MPV 9.8 (9.4-12.3) fL Immature Gran % (Auto) 0.7 H (0.0-0.4) % Neut % (Auto) 84.3 H (45-73) % Lymph % (Auto) 9.8 L (20-40) % [place] % (Auto) 4.1 (2-11) % Eos % (Auto) 0.7 (0-4) % Baso % (Auto) 0.4 (0-2) % Lymph # (Auto) 1.8 (1.2-4.9) X10*3/uL [place] # (Auto) 0.7 (0.1-1.2) X10*3/uL Eos # (Auto) 0.1 (0.0-0.4) X10*3/uL Baso # (Auto) 0.1 (0.0-0.2) X10*3/uL Abs Immat Gran (auto) 0.12 H (0.00-0.03) X10*3/uL Absolute Neuts (auto) 15.0 H (2.0-8.3) x10*3/uL Absolute Nucleated RBC 0.000 (0.0-0.012) X10*3/uL Nucleated RBC % (auto) 0.0 (0.0-0.2) /100WBC Sodium 141 (135-145) mmol/L Potassium 3.7 (3.3-5.1) mmol/L Chloride 110 H (96-108) mmol/L Carbon Dioxide 24 (22-29) mmol/L Anion Gap 11 L (12-20) BUN 12 (9-16) mg/dL Creatinine 0.69 (0.5-1.4) mg/dL Estim Creat Clear Calc 166.9 Estimated GFR > 60 Random Glucose 122 H (60-115) mg/dL Calcium 9.4 (8.4-10.2) mg/dL Total Bilirubin 0.6 (0.0-1.0) mg/dL Direct Bilirubin 0.2 (0.0-0.5) mg/dL AST 17 (5-31) U/L ALT 22 (0-31) U/L Alkaline Phosphatase 78 (39-117) U/L Total Protein 7.3 (6.5-8.0) g/dL Albumin 4.3 (3.5-5.0) g/dL Lipase 12 (8-78) U/L Urine Color Dark Yellow Urine Appearance Clear Urine pH 7.0 (5.0-9.0) Ur Specific [place] >= 1.030 H (1.005-1.025) Urine Protein 30 (1+) H (Neg-Trace) mg/dL Urine Glucose (UA) Negative (Negative) mg/dL Urine Ketones >=160 (Negative) mg/dL Urine Blood Large (3+) H (Negative) Urine Nitrite Negative (Negative) Ur Leukocyte Esterase Trace H (Negative) Urine RBC 11-20 H (0-2) /HPF Urine WBC 0-5 (0-5) /HPF Ur Squamous Epith Cells 3-5 (0-2) /HPF Urine Bacteria Trace (None Seen) Hyaline Casts 0-2 (0-2) /LPF Urine Test NEGATIVE (NEGATIVE) Influenza Type A (PCR) NEGATIVE (Negative) Influenza Type B (PCR) NEGATIVE (Negative) RSV RNA Qual (PCR) NEGATIVE (Negative) SARS-CoV-2 RNA (RT-PCR) NEGATIVE (Negative) Independent Interpretation I performed an independent interpretation of an: Ultrasound (normal ) Radiology Impression Discussion of test interpretation with radiology: I have reviewed the radiologist's reading. External Record Review External record reviewed: Inpatient record and Outpatient record Prescription Management I considered prescription management with: Other Discharge Plan Discharge Clinical Impression: Nausea vomiting and diarrhea Patient Disposition: Home, Self-Care Instructions: Acute Nausea and Vomiting (ED), Acute Diarrhea (ED) Additional Instructions: labs reassuring negative urine test no covid, flu, rsv bland diet for 48 hours, rest and stay hydrated return for severe pain, fevers, bloody stools or any other concerns Prescriptions: New ondansetron 4 mg tablet,disintegrating 4 mg PO Q8H PRN (Reason: nausea and vomiting) Qty: 20 0RF No Action ondansetron 4 mg tablet,disintegrating 4 mg PO Q8H Qty: 14 0RF ibuprofen 800 mg tablet 800 mg PO Q8H PRN (Reason: pain) Qty: 14 0RF oxycodone 5 mg tablet 5 mg PO Q6H PRN (Reason: pain) Qty: 14 0RF Rx Instructions: Partial Fill upon patient request. albuterol sulfate [ProAir HFA] 90 mcg/actuation HFA aerosol inhaler 2 puff inhalation Q4-6H PRN (Reason: shortness of breath or wheezing) Qty: 8.5 0RF phenazopyridine [Pyridium] 200 mg tablet 200 mg PO TID 2 Days Qty: 6 0RF acetaminophen 325 mg Tablet 650 mg PO QID PRN (Reason: Pain) fluconazole [Diflucan] 150 mg tablet 150 mg PO Q3D Qty: 2 0RF Rx Instructions: Take for vulvovaginal irritation. May repeat dose once after 72 hours if no improvement levofloxacin 750 mg tablet 750 mg PO DAILY Qty: 14 0RF benzonatate 200 mg capsule 200 mg PO TID PRN (Reason: cough) Qty: 20 0RF cefuroxime axetil 500 mg tablet 500 mg PO BID 7 Days Qty: 14 0RF prednisone 20 mg tablet 40 mg PO DAILY Qty: 10 0RF cephalexin 500 mg capsule 500 mg PO QID Qty: 20 0RF penicillin V potassium 500 mg tablet 500 mg PO BID 10 Days Qty: 20 0RF ondansetron 4 mg tablet,disintegrating 4 mg PO Q8H PRN (Reason: nausea and vomiting) Qty: 20 0RF Stand Alone Forms: Work/School Release Interventions: ED Discharge Assessment Last Done: 05/09/24 12:56 Discharge Date/Time: 05/09/24 12:57 Print Language: Kyrgyz
[2024-05-09 07:37] LABS: MANUAL DIFF FLAG NO
[2024-05-09 07:45] LABS: Basophils Absolute Auto 0.1 X10*3/uL (0.0-0.2); Basophils Percent Auto 0.4 % (0-2); Eosinophils Absolute Auto 0.1 X10*3/uL (0.0-0.4); Eosinophils Percent Auto 0.7 % (0-4); Hematocrit 40.4 % (37.0-47.0); Hemoglobin 13.3 g/dl (12.0-16.0); Imm Gran Abs Auto 0.12 X10*3/uL (0.00-0.03); Imm Gran Pct Auto 0.7 % (0.0-0.4); Lymphocytes Absolute Auto 1.8 X10*3/uL (1.2-4.9); Lymphocytes Percent Auto 9.8 % (20-40); Mean Corpuscular HGB Conc 32.9 g/dl (31.0-35.0); Mean Corpuscular Hemoglobin 27.1 pg (27.0-33.0); Mean Corpuscular Volume 82.4 fL (80.0-98.0); Mean Platelet Volume 9.8 fL (9.4-12.3); Monocytes Absolute Auto 0.7 X10*3/uL (0.1-1.2); Monocytes Percent Auto 4.1 % (2-11); Neutrophils Percent Auto 84.3 % (45-73); Platelet Count 252 X10*3/uL (160-400); Red Cell Distribution Width 13.2 % (11.0-16.0); White Blood Count 17.8 X10*3/uL (4.8-10.8)
[2024-05-09 07:53] LABS: Alanine Aminotransferase 22 U/L (0-31); Albumin Level 4.3 g/dL (3.5-5.0); Alkaline Phosphatase 78 U/L (39-117); Anion Gap 11 (12-20); Aspartate Amino Transferase 17 U/L (5-31); Bilirubin Direct 0.2 mg/dL (0.0-0.5); Bilirubin Total 0.6 mg/dL (0.0-1.0); Blood Urea Nitrogen 12 mg/dL (9-16); Calcium 9.4 mg/dL (8.4-10.2); Carbon Dioxide 24 mmol/L (22-29); Chloride 110 mmol/L (96-108); Creatinine Clr Calc Pharmacy 166.9; Estimated Glomerular Filt Rate > 60; Glucose Random 122 mg/dL (60-115); Lipase 12 U/L (8-78); Potassium 3.7 mmol/L (3.3-5.1); Sodium 141 mmol/L (135-145); Total Protein 7.3 g/dL (6.5-8.0)
[2024-05-09] MEDS: Lactated Ringers 1,000 ML 999 ML IV (08:07)
[2024-05-09] MEDS: Ketorolac Tromethamine 15 MG/ML VIAL IVPUSH (08:08)
[2024-05-09] MEDS: ondansetron HCL 4 MG/2 ML VIAL IVPUSH (08:10)
[2024-05-09 08:53] LABS: Influenza A PCR NEGATIVE (Negative); Influenza B PCR NEGATIVE (Negative); Resp Syncy Virus RNA Qual PCR NEGATIVE (Negative); SARS COV2 PCR INHOUSE NEGATIVE (Negative)
[2024-05-09] MEDS: Famotidine/PF 20 MG/2 ML VIAL IVPUSH (09:03)
[2024-05-09 09:48] LABS: Appearance Urine Clear; Color Urine Dark Yellow; Glucose Urine UA Negative (Negative); Leukocyte Esterase Urine Trace (Negative); Nitrite Urine Negative (Negative); Specific Gravity - Urine >= 1.030 (1.005-1.025); UMIC TRIGGER UACC YES; Urine Blood Large (3+) (Negative); Urine Ketones >=160 mg/dL (Negative); Urine Protein 30 (1+) mg/dL (Neg-Trace)
--- NOTE | 2024-05-09 09:50 | PC.NURSE ---
PO challenge: Pt given jello and pudding Will continue to monitor.
[2024-05-09 09:53] LABS: Bacteria Urine Trace (None Seen); Hyaline Casts Urine 0-2 /LPF (0-2); WBC Urine 0-5 /HPF (0-5)
[2024-05-09 10:15] LABS: UPreg QC Valid YES; Urine Pregnancy NEGATIVE (NEGATIVE)
[2024-05-09] MEDS: Acetaminophen 1,000 MG/100 ML PIGGYBACK 400 MG IV (10:30)
[2024-05-09] MEDS: Prochlorperazine Edisylate 10 MG/2 ML VIAL IVPUSH (10:30)
[2024-05-09 12:56] VITALS: BP 131/74; PULSE 89; RESP 19; TEMP 36.5; O2SAT 97
== END 2024-05-09 12:57 | disposition home or self-care (01) ==
PROVIDERS: Emergency Provider Emergency Medicine
DX: R11.2 Nausea with vomiting, unspecified (principal); R19.7 Diarrhea, unspecified; Z03.818 Encounter for observation for suspected exposure to other biological agents ruled out
CPT/HCPCS: 0241U; 36415; 76705; 80048; 80076; 81001; 81025; 83690; 85025; 96374; 96375; 99284; 99285; J0131; J0737; J1885; J2405; J7120

== ENCOUNTER → 2024-05-09 10:53 | Outpatient (BNV) | payer OTHER, SELFPAY | PROVIDERS: Emergency Provider Emergency Medicine; Visit Provider Radiology Diagnostic Radiology | DX: R10.11 Right upper quadrant pain (principal); R10.13 Epigastric pain | CPT/HCPCS: 76705 ==

== ENCOUNTER 2024-06-12 16:10 | Emergency (ER) | payer OTHER, SELFPAY ==
--- NOTE | ~2024-06-12 | CT_ITS ---
CLINICAL HISTORY: head injury CT head without contrast Comparison: None Findings: No acute hemorrhage. No extra-axial fluid collection. No hydrocephalus, mass-effect or herniation. Marshall-white differentiation is maintained. White matter is within normal limits for age. No acute orbital pathology. Left frontal scalp soft tissue swelling versus scarring. No acute fracture. Remote right orbital floor fracture with mild protrusion of the orbital fat into the right maxillary sinus. The visualized paranasal sinuses are predominantly clear. The mastoid air cells are clear. Impression: No acute intracranial findings. This document has been electronically signed by: Kori Blanchard MD on 06/12/2024 21:20:05
[2024-06-12 16:37] VITALS: BP 119/90; PULSE 85; RESP 14; TEMP 36.6; O2SAT 94; BMI 45.6
[2024-06-12 17:39] LABS: MANUAL DIFF FLAG NO
[2024-06-12 17:41] LABS: Basophils Absolute Auto 0.1 X10*3/uL (0.0-0.2); Basophils Percent Auto 0.5 % (0-2); Eosinophils Absolute Auto 0.2 X10*3/uL (0.0-0.4); Eosinophils Percent Auto 1.8 % (0-4); Hemoglobin 12.6 g/dl (12.0-16.0); Imm Gran Abs Auto 0.06 X10*3/uL (0.00-0.03); Imm Gran Pct Auto 0.5 % (0.0-0.4); Lymphocytes Absolute Auto 2.8 X10*3/uL (1.2-4.9); Lymphocytes Percent Auto 23.9 % (20-40); Mean Corpuscular HGB Conc 33.2 g/dl (31.0-35.0); Mean Corpuscular Volume 81.5 fL (80.0-98.0); Mean Platelet Volume 9.9 fL (9.4-12.3); Monocytes Absolute Auto 0.7 X10*3/uL (0.1-1.2); Monocytes Percent Auto 5.6 % (2-11); Neutrophils Percent Auto 67.7 % (45-73); Platelet Count 287 X10*3/uL (160-400); Red Blood Count 4.66 X10*6/uL (4.20-5.50); Red Cell Distribution Width 13.4 % (11.0-16.0); White Blood Count 11.8 X10*3/uL (4.8-10.8)
[2024-06-12 17:56] LABS: Alanine Aminotransferase 29 U/L (0-31); Albumin Level 4.2 g/dL (3.5-5.0); Alkaline Phosphatase 70 U/L (39-117); Anion Gap 12 (12-20); Aspartate Amino Transferase 21 U/L (5-31); Bilirubin Total 0.2 mg/dL (0.0-1.0); Blood Urea Nitrogen 13 mg/dL (9-16); Calcium 9.2 mg/dL (8.4-10.2); Carbon Dioxide 23 mmol/L (22-29); Chloride 110 mmol/L (96-108); Creatinine Clr Calc Pharmacy 184.3; Estimated Glomerular Filt Rate > 60; Glucose Random 102 mg/dL (60-115); Potassium 3.8 mmol/L (3.3-5.1); Sodium 141 mmol/L (135-145); Total Protein 7.1 g/dL (6.5-8.0)
[2024-06-12 20:09] VITALS: BP 130/94; PULSE 71; RESP 16; TEMP 36.6; O2SAT 99
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
[2024-06-12 20:41] LABS: UPreg QC Valid YES; Urine Pregnancy NEGATIVE (NEGATIVE)
[2024-06-12] MEDS: Metoclopramide HCl 10 MG TABLET PO (21:59)
[2024-06-12] MEDS: diphenhydrAMINE HCL 25 MG CAPSULE 50 MG PO (21:59)
[2024-06-12] MEDS: Aspirin 81 MG TAB.CHEW PO (21:59)
[2024-06-12] MEDS: Acetaminophen 325 MG TABLET 975 MG PO (22:00)
--- NOTE | 2024-06-12 22:03 | PC.NURSE ---
Patient medicated per MAR.
[2024-06-12 23:30] VITALS: BP 131/85; PULSE 89; RESP 16; TEMP 36.7; O2SAT 98
== END 2024-06-12 23:31 | disposition home or self-care (01) ==
PROVIDERS: Emergency Medicine Emergency Medical Services; Emergency Provider Emergency Medicine Emergency Medical Services
DX: G44.319 Acute post-traumatic headache, not intractable (principal); S09.90XA Unspecified injury of head, initial encounter; X58.XXXA Exposure to other specified factors, initial encounter; Y93.89 Activity, other specified; Y92.831 Amusement park as the place of occurrence of the external cause; Y99.9 Unspecified external cause status; R11.0 Nausea
CPT/HCPCS: 36415; 70450; 80053; 81025; 85025; 99284

== ENCOUNTER → 2024-06-12 20:23 | Outpatient (BNV) | payer OTHER, SELFPAY | PROVIDERS: Emergency Provider Emergency Medicine Emergency Medical Services; Visit Provider Radiology Diagnostic Radiology | DX: S09.90XA Unspecified injury of head, initial encounter (principal) | CPT/HCPCS: 70450 ==